=== PATIENT | male | born 1935 | race Caucasian/White ===

== ENCOUNTER → 2017-07-31 10:47 | Outpatient (CLI) | payer MEDICARE, SELFPAY ==
[2017-07-31 12:40] LABS: Absolute Lymphocyte Count 1.43 X10^3/ul (0.83-4.51); Absolute Neutrophil Count 3.2 X10^3/uL (2.0-7.7); Basophil# 0.02 X10^3/uL; Basophil% 0.4 % (0-1); Eosinophil# 0.27 X10^3/uL; Hematocrit 38.7 % (40-54); Hemoglobin 12.9 g/dl (13.0-16.5); Lymphocyte # 1.43 X10^3/ul (4.0); Lymphocyte % 26.4 % (19-41); Mean Corp Hgb Conc 33.3 g/gl (32-36); Mean Corpuscular Hgb 30.9 pg (27.0-32.0); Mean Corpuscular Volume 92.8 fL (80-94); Mean Platelet Vol. 12.1 fl (6.2-12.0); Monocyte# 0.51 X10^3/uL; Monocyte% 9.4 % (0-10); Neutrophil # 3.16 X10^3/uL (2.7-7.7); Neutrophil % 58.4 % (47-70); Platelet Count 217 K/mm3 (150-450); RBC Distribution Width CV 12.6 % (11.6-14.6); Red Blood Count 4.17 M/mm3 (4.6-6.2); White Blood Count 5.4 K/mm3 (4.4-11.0)
[2017-07-31 12:46] LABS: POSITIVE COUNT NO; POSITIVE DIFFERENTIAL NO; POSITIVE MORPHOLOGY NO
[2017-07-31 13:02] LABS: ALB/GLOB Ratio 1.2 RATIO (0.9-2.4); AST(SGOT) 12 U/L (15-37); Alanine Aminotransfer ALT/SGPT 18 U/L (16-61); Albumin, Serum 3.9 g/dL (3.2-5.0); Alkaline Phosphatase 82 U/L (45-117); Anion Gap 7 (5-15); BUN 22 mg/dL (7-18); BUN/Creat Ratio 13.5 RATIO (10-20); Calcium,Total 8.7 mg/dL (8.5-10.1); Chloride 106 mmol/L (98-107); Creatinine, Serum 1.63 mg/dL (0.70-1.30); EST Glomerular Filtration Rate 43 mL/min (>60); Est Glom Filt Rate - Afr Amer 52 mL/min (>60); Globulin 3.3 g/dL (2.2-4.2); Glucose 102 mg/dL (74-106); Potassium 5.2 mmol/L (3.5-5.1); Protein, Total 7.2 g/dL (6.4-8.2); Sodium Level 141 mmol/L (136-145); Vitamin D,25 Hydroxy 11.7 ng/mL (29.95-100.01)
== END ==
PROVIDERS: Visit Provider Family Medicine Geriatric Medicine
DX: E11.9 Type 2 diabetes mellitus without complications (principal); I10 Essential (primary) hypertension; E23.6 Other disorders of pituitary gland; E55.9 Vitamin D deficiency, unspecified
CPT/HCPCS: 36415; 80053; 82306; 84403; 84443; 85025

== ENCOUNTER → 2018-02-04 12:01 | Outpatient (CLI) | payer MEDICARE, SELFPAY ==
[2018-02-04 12:51] LABS: Basophil# 0.01 X10^3/uL; Basophil% 0.1 % (0-1); Eosinophil# 0.25 X10^3/uL; Eosinophils% 3.5 % (0-5); Hematocrit 43.4 % (40-54); Hemoglobin 14.7 g/dl (13.0-16.5); Lymphocyte % 18.4 % (19-41); Mean Corp Hgb Conc 33.9 g/gl (32-36); Mean Corpuscular Hgb 30.8 pg (27.0-32.0); Mean Platelet Vol. 12.8 fl (6.2-12.0); Monocyte# 0.54 X10^3/uL; Monocyte% 7.6 % (0-10); Neutrophil # 4.95 X10^3/uL (2.7-7.7); Neutrophil % 70.3 % (47-70); Platelet Count 223 K/mm3 (150-450); RBC Distribution Width CV 12.4 % (11.6-14.6); RBC Distribution Width SD 40.7 fl (35.1-43.9); Red Blood Count 4.77 M/mm3 (4.6-6.2); White Blood Count 7.1 K/mm3 (4.4-11.0)
[2018-02-04 12:55] LABS: POSITIVE COUNT NO; POSITIVE DIFFERENTIAL NO; POSITIVE MORPHOLOGY NO
[2018-02-04 13:14] LABS: Vitamin D,25 Hydroxy 19.6 ng/mL (29.95-100.01)
[2018-02-04 13:29] LABS: ALB/GLOB Ratio 1.2 RATIO (0.9-2.4); AST(SGOT) 14 U/L (15-37); Alanine Aminotransfer ALT/SGPT 18 U/L (16-61); Albumin, Serum 4.1 g/dL (3.2-5.0); Alkaline Phosphatase 79 U/L (45-117); Anion Gap 10 (5-15); BUN 25 mg/dL (7-18); BUN/Creat Ratio 14.9 RATIO (10-20); Calcium,Total 9.4 mg/dL (8.5-10.1); Chloride 100 mmol/L (98-107); Creatinine, Serum 1.68 mg/dL (0.70-1.30); EST Glomerular Filtration Rate 42 mL/min (>60); Est Glom Filt Rate - Afr Amer 51 mL/min (>60); Globulin 3.4 g/dL (2.2-4.2); Glucose 173 mg/dL (74-106); Potassium 4.9 mmol/L (3.5-5.1); Protein, Total 7.5 g/dL (6.4-8.2); Sodium Level 136 mmol/L (136-145)
--- OUTSIDE RECORDS SUMMARY | 2018-03-19 03:42 | XMS RPT_ITS ---
:1935 Author Organization OH[facility] Care Team Providers Name Role Phone Cameron Perez Chi Attending Unavailable Cameron Perez Chi Attending Unavailable PROBLEMS PROBLEMS No Problem Records FoundPROCEDURES PROCEDURES No Procedure Records FoundRESULTS RESULTS CBC W/DIFF, AUTOMATED Collected: 02/04/2018 Status: F Source: [place] 12:03 PM [facility] [place] REPOSITORY TYPE CODE TESTS RESULT OUT OF RANGE REFERENCE UNITS LAB L100.1000 4.4-11.0 K/mm3 Normal WBC 7.1 LAB L100.1200 4.6-6.2 M/mm3 Normal RBC 4.77 LAB L100.1300 13.0-16.5 g/dl Normal HGB 14.7 LAB L100.1400 40-54 % Normal HCT 43.4 LAB L100.1500 80-94 fL Normal MCV 91.0 LAB L100.1600 27.0-32.0 pg Normal MCH 30.8 LAB L100.1700 32-36 g/gl Normal MCHC 33.9 LAB L100.1810 11.6-14.6 % Normal RDW CV 12.4 LAB L100.1820 35.1-43.9 fl Normal RDW SD 40.7 LAB L100.1900 150-450 K/mm3 Normal PLT 223 LAB L100.2000 6.2-12.0 fl High MPV 12.8 LAB L100.2100 47-70 % High NEUT% 70.3 LAB L100.2200 19-41 % Low LY% 18.4 LAB L100.2300 0-10 % Normal MONO% 7.6 LAB L100.2400 0-5 % Normal EO% 3.5 LAB L100.2500 0-1 % Normal BASO% 0.1 LAB L100.2550 0.0-0.9 % Normal IM GRAN % 0.100 Result Comment: IG% - Immature Granulocytes (promyelocytes, myelocytes and metamyelocytes) > 1% indicates that a LEFT SHIFT is Present. LAB L100.2620 2.0-7.7 X10 3/uL Normal Absolute Neut 5.0 LAB L100.2720 0.83-4.51 X10 3/ul Normal Absolute Lymph 1.30 Performed By: #### L100.0100 #### [facility] [address] [place], [address] VITAMIN D,25 HYDROXY Collected: 02/04/2018 Status: F Source: [place] 12:03 PM [facility] [place] REPOSITORY TYPE CODE TESTS RESULT OUT OF REFERENCE UNITS RANGE LAB L506.1000 29.95-100.01 ng/mL Low Vitamin D 19.6 25-OH Result Comment: Vitamin D 25(OH) Status Range Deficiency <20 ng/mL (50nmol/L) Insuffciency 20 - 30 ng/mL (50 - 75 nmol/L) Sufficiency 30 - 100 ng/mL (75 - 250 nmol/L) Toxicity >100 ng/mL (>250 nmol/L) Performed By: #### L506.1000, L509.3000 #### [facility] [address] [place], [address] TESTOSTERONE, SERUM TOTAL Collected: 02/04/2018 Status: F Source: [place] 12:03 [facility] [place] REPOSITORY TYPE CODE TESTS RESULT OUT OF REFERENCE UNITS RANGE LAB L509.3000 ng/dL Testosterone Normal 218.93 Result Comment: NORMAL REFERENCE RANGES MALE AGE <50 123.06 - 813.86 ng/dL MALE AGE >50 89.98 - 780.10 ng/dL FEMALE PREMENOPAUSE AGE 21 - 60 9.01 - 47.94 ng/dL FEMALE POSTMENOPAUSE AGE 45 - 89 <7.00 - 45.62 ng/dL REFERENCE RANGE AND METHODOLOGY CHANGED 02/27/2017 Performed By: #### L506.1000, L509.3000 #### [facility] [address] [place], [address] COMPREHENSIVE METABOLIC Collected: 02/04/2018 Status: F Source: [place] [facility] 12:03 PM [facility] [place] REPOSITORY TYPE CODE TESTS RESULT OUT OF RANGE REFERENCE UNITS LAB L501.0100 74-106 mg/dL High GLU 173 Result Comment: Fasting Glucose result greater than or equal to 126 mg/dL suggests DIABETES MELLITUS per A.D.A. criteria. Please note revised GLUCOSE reference range effective 2017. LAB L501.1000 7-18 mg/dL High BUN 25 LAB L501.1100 0.70-1.30 mg/dL High CREAT,SERUM 1.68 Result Comment: The validity of the calculated GFR AND GFRAA in patients over 70 years has not been determined. Clinical correlation is essential. LAB L501.1110 >60 mL/min Low EST GFR 42 Result Comment: Non- GFR Calc LAB L501.1115 >60 mL/min Low EST GFR - AA 51 Result Comment: GFR Calc LAB L501.1300 10-20 RATIO Normal BUN/CRE 14.9 LAB L501.1500 6.4-8.2 g/dL T Normal PROT 7.5 LAB L501.1800 3.2-5.0 g/dL Normal ALB 4.1 LAB L501.1950 2.2-4.2 g/dL Normal GLOB 3.4 LAB L501.2000 0.9-2.4 RATIO Normal A/G 1.2 LAB L501.2200 8.5-10.1 mg/dL CA Normal 9.4 LAB L501.4100 15-37 U/L Low AST 14 LAB L501.4305 45-117 U/L Normal ALK P 79 LAB L501.4405 16-61 U/L Normal ALT 18 LAB L501.4600 0.20-1.00 mg/dL T Normal BILI 0.60 LAB L501.5300 136-145 mmol/L NA Normal 136 LAB L501.5600 3.5-5.1 mmol/L K Normal 4.9 LAB L501.5900 98-107 mmol/L CL Normal 100 LAB L501.6100 21.0-32.0 mmol/L Normal CO2 26.0 LAB L501.6200 5-15 Normal GAP 10 Performed By: #### L500.4050, L501.6078 #### [facility] [address] [place], [address] THYROID STIM HORMONE Collected: 02/04/2018 Status: F Source: [place] (TSH) 12:03 PM [facility] [place] REPOSITORY TYPE CODE TESTS RESULT OUT OF RANGE REFERENCE UNITS LAB L501.9520 0.358-3.74 uIU/mL High TSH 3.90 Performed By: #### L500.4050, L501.9520 #### [facility] [address] [place], [address] CBC W/DIFF, AUTOMATED Collected: 07/31/2017 Status: F Source: [place] 10:48 AM [facility] [place] REPOSITORY TYPE CODE TESTS RESULT OUT OF RANGE REFERENCE UNITS LAB L100.1000 4.4-11.0 K/mm3 Normal WBC 5.4 LAB L100.1200 4.6-6.2 M/mm3 Low RBC 4.17 LAB L100.1300 13.0-16.5 g/dl Low HGB 12.9 LAB L100.1400 40-54 % Low HCT 38.7 LAB L100.1500 80-94 fL Normal MCV 92.8 LAB L100.1600 27.0-32.0 pg Normal MCH 30.9 LAB L100.1700 32-36 g/gl Normal MCHC 33.3 LAB L100.1810 11.6-14.6 % Normal RDW CV 12.6 LAB L100.1820 35.1-43.9 fl Normal RDW SD 42.0 LAB L100.1900 150-450 K/mm3 Normal PLT 217 LAB L100.2000 6.2-12.0 fl High MPV 12.1 LAB L100.2100 47-70 % Normal NEUT% 58.4 LAB L100.2200 19-41 % Normal LY% 26.4 LAB L100.2300 0-10 % Normal MONO% 9.4 LAB L100.2400 0-5 % Normal EO% 5.0 LAB L100.2500 0-1 % Normal BASO% 0.4 LAB L100.2550 0.0-0.9 % Normal IM GRAN % 0.400 Result Comment: IG% - Immature Granulocytes (promyelocytes, myelocytes and metamyelocytes) > 1% indicates that a LEFT SHIFT is Present. LAB L100.2620 2.0-7.7 X10 3/uL Normal Absolute Neut 3.2 LAB L100.2720 0.83-4.51 X10 3/ul Normal Absolute Lymph 1.43 Performed By: #### L100.0100 #### [facility] [address] [place], [address] VITAMIN D,25 HYDROXY Collected: 07/31/2017 Status: F Source: [place] 10:48 AM [facility] [place] REPOSITORY TYPE CODE TESTS RESULT OUT OF REFERENCE UNITS RANGE LAB L506.1000 29.95-100.01 ng/mL Low Vitamin D 11.7 25-OH Result Comment: Vitamin D 25(OH) Status Range Deficiency <20 ng/mL (50nmol/L) Insuffciency 20 - 30 ng/mL (50 - 75 nmol/L) Sufficiency 30 - 100 ng/mL (75 - 250 nmol/L) Toxicity >100 ng/mL (>250 nmol/L) Performed By: #### L506.1000, L509.3000 #### [facility] [address] [place], [place], [address] TESTOSTERONE, SERUM TOTAL Collected: 07/31/2017 Status: F Source: [place] 10:48 AM [facility] [place] REPOSITORY TYPE CODE TESTS RESULT OUT OF REFERENCE UNITS RANGE LAB L509.3000 ng/dL Testosterone Normal 198.95 Result Comment: NORMAL REFERENCE RANGES MALE AGE <50 123.06 - 813.86 ng/dL MALE AGE >50 89.98 - 780.10 ng/dL FEMALE PREMENOPAUSE AGE 21 - 60 9.01 - 47.94 ng/dL FEMALE POSTMENOPAUSE AGE 45 - 89 <7.00 - 45.62 ng/dL REFERENCE RANGE AND METHODOLOGY CHANGED 02/27/2017 Performed By: #### L506.1000, L509.3000 #### [facility] [address] [place], [address] COMPREHENSIVE METABOLIC Collected: 07/31/2017 Status: F [facility] [place] REPOSITORY TYPE CODE TESTS RESULT OUT OF RANGE REFERENCE UNITS LAB L501.0100 74-106 mg/dL Normal GLU 102 Result Comment: Fasting Glucose result from 100 to 125 mg/dL suggests IMPAIRED HOMEOSTASIS per A.D.A. criteria. Please note revised GLUCOSE reference range effective 2017. LAB L501.1000 7-18 mg/dL High BUN 22 LAB L501.1100 0.70-1.30 mg/dL High CREAT,SERUM 1.63 Result Comment: The validity of the calculated GFR AND GFRAA in patients over 70 years has not been determined. Clinical correlation is essential. LAB L501.1110 >60 mL/min Low EST GFR 43 Result Comment: Non- GFR Calc LAB L501.1115 >60 mL/min Low EST GFR - AA 52 Result Comment: GFR Calc LAB L501.1300 10-20 RATIO Normal BUN/CRE 13.5 LAB L501.1500 6.4-8.2 g/dL T Normal PROT 7.2 LAB L501.1800 3.2-5.0 g/dL Normal ALB 3.9 LAB L501.1950 2.2-4.2 g/dL Normal GLOB 3.3 LAB L501.2000 0.9-2.4 RATIO Normal A/G 1.2 LAB L501.2200 8.5-10.1 mg/dL CA Normal 8.7 LAB L501.4100 15-37 U/L Low AST 12 LAB L501.4305 45-117 U/L Normal ALK P 82 LAB L501.4405 16-61 U/L Normal ALT 18 LAB L501.4600 0.20-1.00 mg/dL T Normal BILI 0.40 LAB L501.5300 136-145 mmol/L NA Normal 141 LAB L501.5600 3.5-5.1 mmol/L High K 5.2 LAB L501.5900 98-107 mmol/L CL Normal 106 LAB L501.6100 21.0-32.0 mmol/L Normal CO2 28.0 LAB L501.6200 5-15 Normal GAP 7 Performed By: #### L500.4050, L501.9520 #### [facility] [address] [place], [address] THYROID STIM HORMONE Collected: 07/31/2017 Status: F Source: [place] (TSH) 10:48 AM [facility] [place] REPOSITORY TYPE CODE TESTS RESULT OUT OF RANGE REFERENCE UNITS LAB L501.9520 0.358-3.74 uIU/mL Normal TSH 2.70 Performed By: #### L500.4050, L501.9520 #### [facility] [address] [place], [address] ALLERGIES ALLERGIES No Allergies Records FoundENCOUNTERS ENCOUNTERS ADMIT/DISCHARGE ACCOUNT ADMITTING ENCOUNTER LOCATION SOURCE NUMBER CLASS 02/04/2018 [id number] [place] [facility] ing:POLAB3 Repository 07/31/2017 [id number] Ambulatory [place] [facility] ing:POLAB3 Repository PAYERS PAYERS ENCOUNTER GUARANTOR PAYER SUBSCRIBER SOURCE 02/04/2018 Weston Thomas Primary Insurance:MMO Weston E [place] [id number] MEDICAREPolicy ShoemakerDOB[facility] [place] [place]: [id number] [id number] Repository [address]Kqn: [phone]) Date:[id number] [phone] () [place], [place] [address]MX: 02/04/2018 Secondary NOT GIVENUNK [place] Insurance:SELF PAY [facility] Number: Effective Repository Date:2018-02-04 07/31/2017 Weston Thomas Primary Insurance:MMO [place] E [place] [id number] [facility] ShoemakerDOB: [facility] [place], [place] Number: [id number], [place] [id number] Repository [address]Qaj: [phone]) Date:[phone] () [place], [place] [address]ZP: 07/31/2017 Secondary NOT GIVENUNK [place] Insurance:SELF PAY [facility] Number: Effective Repository Date:2017-07-31
== END ==
PROVIDERS: Visit Provider Family Medicine Geriatric Medicine
DX: I10 Essential (primary) hypertension (principal); E23.6 Other disorders of pituitary gland; E55.9 Vitamin D deficiency, unspecified
CPT/HCPCS: 36415; 80053; 82306; 84403; 84443; 85025

== ENCOUNTER → 2018-08-06 08:54 | Outpatient (CLI) | payer MEDICARE, SELFPAY ==
[2018-08-06 10:46] LABS: Absolute Lymphocyte Count 1.21 X10^3/ul (0.83-4.51); Absolute Neutrophil Count 3.4 X10^3/uL (2.0-7.7); Basophil# 0.01 X10^3/uL; Basophil% 0.2 % (0-1); Eosinophil# 0.21 X10^3/uL; Eosinophils% 4.1 % (0-5); Hematocrit 38.9 % (40-54); Hemoglobin 13.2 g/dl (13.0-16.5); Lymphocyte # 1.21 X10^3/ul (4.0); Lymphocyte % 23.4 % (19-41); Mean Corp Hgb Conc 33.9 g/gl (32-36); Mean Corpuscular Hgb 30.8 pg (27.0-32.0); Mean Corpuscular Volume 90.9 fL (80-94); Mean Platelet Vol. 12.4 fl (6.2-12.0); Monocyte# 0.32 X10^3/uL; Monocyte% 6.2 % (0-10); Neutrophil % 65.9 % (47-70); Platelet Count 197 K/mm3 (150-450); RBC Distribution Width CV 13.2 % (11.6-14.6); RBC Distribution Width SD 43.7 fl (35.1-43.9); Red Blood Count 4.28 M/mm3 (4.6-6.2); White Blood Count 5.2 K/mm3 (4.4-11.0)
[2018-08-06 10:48] LABS: POSITIVE COUNT NO; POSITIVE DIFFERENTIAL NO; POSITIVE MORPHOLOGY NO
[2018-08-06 11:06] LABS: Vitamin D,25 Hydroxy 16.8 ng/mL (29.95-100.01)
[2018-08-06 11:15] LABS: ALB/GLOB Ratio 1.1 RATIO (0.9-2.4); AST(SGOT) 13 U/L (15-37); Alanine Aminotransfer ALT/SGPT 14 U/L (16-61); Albumin, Serum 3.9 g/dL (3.2-5.0); Alkaline Phosphatase 76 U/L (45-117); Anion Gap 4 (5-15); BUN 27 mg/dL (7-18); BUN/Creat Ratio 16.5 RATIO (10-20); Calcium,Total 8.8 mg/dL (8.5-10.1); Chloride 106 mmol/L (98-107); Creatinine, Serum 1.64 mg/dL (0.70-1.30); EST Glomerular Filtration Rate 43 mL/min (>60); Est Glom Filt Rate - Afr Amer 52 mL/min (>60); Globulin 3.4 g/dL (2.2-4.2); Glucose 233 mg/dL (74-106); Potassium 4.8 mmol/L (3.5-5.1); Protein, Total 7.3 g/dL (6.4-8.2); Sodium Level 137 mmol/L (136-145); Thyroid Stim Hormone (TSH) 2.41 uIU/mL (0.358-3.74)
== END ==
PROVIDERS: Family Provider Family Medicine Geriatric Medicine; PCP Family Medicine Geriatric Medicine; Visit Provider Family Medicine Geriatric Medicine
DX: E11.9 Type 2 diabetes mellitus without complications (principal); E23.6 Other disorders of pituitary gland; E55.9 Vitamin D deficiency, unspecified; I10 Essential (primary) hypertension; E03.9 Hypothyroidism, unspecified
CPT/HCPCS: 36415; 80053; 82306; 84403; 84443; 85025

== ENCOUNTER → 2018-08-06 10:22 | Outpatient (CLI) | payer MEDICARE, SELFPAY ==
--- NOTE | 2018-08-06 10:30 | VDLE_ITS ---
Reason For Study: Edema RIGHT LEFT GSV is normal. GSV is normal. CFV is compressible, spontaneous, phasic, CFV is compressible, spontaneous, phasic, competent and demonstrates normal competent, and demonstrates normal augmentation. augmentation. FV is compressible, spontaneous, phasic, FV is compressible, spontaneous, phasic, competent and demonstrates normal competent and demonstrates normal augmentation. augmentation. POP V is compressible, spontaneous, phasic, POP V is compressible, spontaneous, phasic, competent and demonstrates normal competent and demonstrates normal augmentation. augmentation. T/P Trunk is compressible. T/P Trunk is compressible. PTV is compressible. PTV is compressible. RT PerV is compressible. LT PerV is compressible. Procedure Nonvascularized structure noted in the Exam performed in department. popliteal space extending into the proximal A preliminary report was called and/or faxed calf. Measures approximently 10.0 x 1.0 cm. to Chris. Interpretation Summary Deep veins of the lower extremities are bilaterally patent and compressible segmentally. There is no evidence of deep vein thrombosis on either side. Valvular competence appears intact within the proximal deep venous systems bilaterally. The greater saphenous veins appear bilaterally patent and compressible segmentally. A non-vascular, hypoechoic structure is noted in the left popliteal space, extending into the left proximal calf, measuring 10.0 cm x 1.0 cm. This probably represents a popliteal cyst. Clinical correlation is advised. Ordering Physician: Cameron Perez Referring Physician: Cameron Perez Chi Performed By: Emilia Irvin RVT
== END ==
PROVIDERS: Family Provider Family Medicine Geriatric Medicine; PCP Family Medicine Geriatric Medicine; Referring Provider Family Medicine Geriatric Medicine; Visit Provider Family Medicine Geriatric Medicine
DX: R60.0 Localized edema (principal); E11.9 Type 2 diabetes mellitus without complications; I10 Essential (primary) hypertension; E03.9 Hypothyroidism, unspecified; E23.6 Other disorders of pituitary gland; E55.9 Vitamin D deficiency, unspecified
CPT/HCPCS: 36415; 80053; 82306; 84403; 84443; 85025; 93970

== ENCOUNTER → 2019-02-04 11:33 | Outpatient (CLI) | payer MEDICARE, SELFPAY ==
[2019-02-04 12:33] LABS: Absolute Lymphocyte Count 1.22 X10^3/uL (0.83-4.51); Absolute Neutrophil Count 5.2 X10^3/uL (2.0-7.7); Basophil# 0.02 X10^3/uL; Basophil% 0.3 % (0-1); Eosinophil# 0.44 X10^3/uL; Eosinophils% 5.8 % (0-5); Hematocrit 39.6 % (40-54); Hemoglobin 13.1 g/dL (13.0-16.5); Lymphocyte # 1.22 X10^3/ul (4.0); Lymphocyte % 16.2 % (19-41); Mean Corp Hgb Conc 33.1 g/dL (32-36); Mean Corpuscular Hgb 30.3 pg (27.0-32.0); Mean Corpuscular Volume 91.7 fL (80-94); Mean Platelet Vol. 12.8 fl (6.2-12.0); Monocyte# 0.63 X10^3/uL; Monocyte% 8.3 % (0-10); NRBC Flagged by Analyzer 0 % (0-5); Neutrophil # 5.21 X10^3/uL (2.7-7.7); Platelet Count 199 K/mm3 (150-450); RBC Distribution Width CV 12.3 % (11.6-14.6); RBC Distribution Width SD 40.9 fl (35.1-43.9); Red Blood Count 4.32 M/mm3 (4.6-6.2); White Blood Count 7.6 K/mm3 (4.4-11.0)
[2019-02-04 12:52] LABS: Vitamin D,25 Hydroxy 12.2 ng/mL (29.95-100.01)
[2019-02-04 12:59] LABS: ALB/GLOB Ratio 1.2 RATIO (0.9-2.4); AST(SGOT) 8 U/L (15-37); Alanine Aminotransfer ALT/SGPT 17 U/L (16-61); Alkaline Phosphatase 99 U/L (45-117); Anion Gap 10 (5-15); BUN 27 mg/dL (7-18); BUN/Creat Ratio 15.1 RATIO (10-20); Chloride 101 mmol/L (98-107); Creatinine, Serum 1.79 mg/dL (0.70-1.30); EST Glomerular Filtration Rate 39 mL/min (>60); Est Glom Filt Rate - Afr Amer 47 mL/min (>60); Globulin 3.3 g/dL (2.2-4.2); Glucose 238 mg/dL (74-106); Potassium 4.1 mmol/L (3.5-5.1); Protein, Total 7.3 g/dL (6.4-8.2); Sodium Level 137 mmol/L (136-145); Thyroid Stim Hormone (TSH) 4.47 uIU/mL (0.358-3.74)
== END ==
PROVIDERS: Family Provider Family Medicine Geriatric Medicine; PCP Family Medicine Geriatric Medicine; Visit Provider Family Medicine Geriatric Medicine
DX: E11.9 Type 2 diabetes mellitus without complications (principal); E55.9 Vitamin D deficiency, unspecified; E23.6 Other disorders of pituitary gland
CPT/HCPCS: 36415; 80053; 82306; 84403; 84443; 85025

== ENCOUNTER 2019-03-10 16:13 | Observation (INO) | payer MEDICARE, SELFPAY ==
[2019-03-10 16:15] VITALS: BP 165/9; PULSE 52; RESP 16; TEMP 36.4; O2SAT 98; BMI 27.1
--- NOTE | 2019-03-10 16:47 | ED.VIS.GEN ---
History of Present Illness Chief Complaint: General Illness Narrative: Patient presenting for evaluation due to concern for I am not going to the bathroom normally. Patient states that he typically urinates around 3-4 times a day. He states that over the course of at least the last 2 days he is only urinated maybe once a day, and feels that he is having incomplete emptying. Patient states that he feels significantly dry. Over the course of the last 24 hours now he has been developing nausea vomiting and difficulty with keeping down fluids and food. He denies any abdominal pain or flank pain. He denies any presence of fevers. He denies any history of urinary retention. Additionally the patient states that he fell around a week ago striking his shins on the stairs. He reports that the wounds have been having a difficult time healing. He has been doing home wound care. He has an underlying history of diabetes. Review of systems otherwise negative. Past Medical History - Allergies and Home Meds Allergies/Adverse Reactions: Allergies No Known Allergies Allergy (Verified 03/10/19 16:14) Primary Care Physician: Cameron Perez Chi, MD [Primary Care Provider] - Past Medical History: - - Diabetes, hypertension, hyperlipidemia Review of Systems All systems negative except as indicated General: Denies: Fever Eyes: Denies: Visual changes - bilaterally, Diplopia ENT: Denies: Rhinorrhea, Sore throat Cardiovascular: Denies: Chest pain, Palpitations Respiratory: Denies: Dyspnea, Cough, Dyspnea on exertion Gastrointestinal: Denies: Abdominal pain, Nausea, Vomiting, Diarrhea, Melena, Hematochezia Genitourinary: Reports: - - Decreased urination Musculoskeletal: Denies: Back pain, Extremity Pain Skin: Reports: Wounds Neurological: Denies: Headache, Weakness, Numbness Physical Exam Vital Signs/Narrative: Vital Signs Temp Pulse Resp BP Pulse Ox 03/10/19 16:15 97.5 F L 52 L 16 165/9 H 98 General: Well nourished, Well developed, No Acute Distress Head: Normocephalic, Atraumatic Eyes: Perrl, EOMI ENT: No rhinorrhea, Dry mucous membranes Neck: Supple, Nontender Cardiovascular: No murmurs, Bradycardia Respiratory: No distress, CTA bilaterally, Chest nontender Abdomen: Soft, Nontender, Nondistended, Normal bowel sounds Extremities: - - Examination of the patient's lower extremities shows multiple wounds, erythema, and scattered petechia of the patient's right lower leg. There is warmth of this. No subcutaneous emphysema or streaking. Left leg has some open wounds that do not appear infected. Skin: Normal color, No rash Neurological: Alert, Oriented x3, Cranial nerves II-XII grossly intact, Normal Strength, Normal Sensation Psychological: Normal affect, Normal Mood Diagnostic/Tx/Re-eval - Medical Decision Making Patient presented secondary to urinary complaints. Bedside bladder scanning showed the patient to have greater than 1 L of urine in his bladder. Jennings catheter was placed, and the patient put over 1700 cc of urine into the bag immediately. Patient has mild leukocytosis of 13. Chemistry panel surprisingly did not show significant acute kidney injury. Patient's baseline creatinine was 1.7, it only went up to 1.9. Urinalysis shows no signs of infection. On physical exam patient does have evidence of significant cellulitis on the leg, and on repeat evaluation I even feel that there is some lymphangitic streaking going above the knee. He was profoundly dry also on physical exam. Given his acute urinary retention, diabetes, cellulitis with lymphangitic streaking I do believe that he requires admission. Patient was given a dose of Unasyn as well as 2 L of fluids in the emergency department. Patient will be admitted under the hospitalist. ED Disposition - Plan for ED Patient: Disposition: Acute Care Hospital [facility] Diagnosis: Bilateral lower leg cellulitis, Acute urinary retention, Acute kidney injury, Dehydration Referrals: Cameron Perez Chi, MD [Primary Care Provider] -
[2019-03-10] MEDS: Lactated Ringers 2,000 ML 999 ML IV (17:11)
[2019-03-10 17:14] LABS: Absolute Lymphocyte Count 0.54 X10^3/uL (0.83-4.51); Absolute Neutrophil Count 11.6 X10^3/uL (2.0-7.7); Basophil# 0.02 X10^3/uL; Basophil% 0.2 % (0-1); Eosinophil# 0.13 X10^3/uL; Hematocrit 37.9 % (40-54); Hemoglobin 12.8 g/dL (13.0-16.5); Lymphocyte # 0.54 X10^3/ul (4.0); Lymphocyte % 4.1 % (19-41); Mean Corp Hgb Conc 33.8 g/dL (32-36); Mean Corpuscular Hgb 30.6 pg (27.0-32.0); Mean Corpuscular Volume 90.7 fL (80-94); Mean Platelet Vol. 11.9 fl (6.2-12.0); Monocyte# 0.58 X10^3/uL; Monocyte% 4.5 % (0-10); NRBC Flagged by Analyzer 0 % (0-5); Neutrophil # 11.64 X10^3/uL (2.7-7.7); Neutrophil % 89.4 % (47-70); POSITIVE DIFFERENTIAL YES; POSITIVE MORPHOLOGY YES; Platelet Count 199 K/mm3 (150-450); RBC Distribution Width CV 12.9 % (11.6-14.6); RBC Distribution Width SD 42.9 fl (35.1-43.9); Red Blood Count 4.18 M/mm3 (4.6-6.2)
[2019-03-10 17:18] LABS: Differential Indicated SCAN CRITERIA MET
[2019-03-10 17:35] LABS: Anion Gap 11 (5-15); BUN 32 mg/dL (7-18); BUN/Creat Ratio 16.7 RATIO (10-20); Calcium,Total 9.4 mg/dL (8.5-10.1); Chloride 107 mmol/L (98-107); Creatinine, Serum 1.92 mg/dL (0.70-1.30); EST Glomerular Filtration Rate 36 mL/min (>60); Est Glom Filt Rate - Afr Amer 43 mL/min (>60); Glucose 263 mg/dL (74-106); Potassium 4.5 mmol/L (3.5-5.1); Sodium Level 140 mmol/L (136-145)
[2019-03-10 17:53] LABS: Bacteria 0 SEEN /hpf (None Seen); Mucous, Urine 0 SEEN /hpf (<or=2+); Squamous Epithelial Cells - UA 0 SEEN /hpf (0-5)
[2019-03-10 17:58] LABS: Color, Urine Yellow (Yellow); Glucose, Dipstick 250 mg/dl (Normal); Ketone-Dipstick 5 mg/dl (Negative); Leukocyte Esterase-Dipstick Negative /ul (Negative); Nitrite-Dipstick Negative (Negative); Occult Blood-Urine Negative /ul (Negative); Protein-Dipstick 30 mg/dl (Negative); Urine Bilirubin Dipstick Negative (Negative); Urine Clarity Clear (Clear); Urine Urobilinogen Normal (Normal)
[2019-03-10 18:28] LABS: Red Blood Cells-Urine 0-5 SEEN /hpf (0-5); Transitional Epithelial - Ur 0-5 SEEN /hpf (0-5); White Blood Cells 0-5 SEEN /hpf (0-5)
--- NOTE | 2019-03-10 19:01 | PCM.HP.STD ---
Problem List (1) Cellulitis Status: Acute Qualifiers: Site of cellulitis: extremity Site of cellulitis of extremity: lower extremity Laterality: right Qualified Code(s): L03.115 - Cellulitis of right lower limb (2) Acute urinary retention Status: Acute (3) CKD (chronic kidney disease), stage III Status: Chronic (4) HTN (hypertension) Status: Chronic Qualifiers: Hypertension type: unspecified Qualified Code(s): I10 - Essential (primary) hypertension (5) HLD (hyperlipidemia) Status: Chronic Qualifiers: Hyperlipidemia type: unspecified Qualified Code(s): E78.5 - Hyperlipidemia, unspecified (6) Hypothyroidism Status: Chronic Qualifiers: Hypothyroidism type: unspecified Qualified Code(s): E03.9 - Hypothyroidism, unspecified (7) Diabetes mellitus, type II Status: Chronic 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 use Diabetes mellitus complication status: with other specified complication Qualified Code(s): E11.69 - Type 2 diabetes mellitus with other specified complication History of Present Illness Date of Admission: 03/10/19 Chief Complaint: Urinary retention The patient is a 83 y/o M w/ PMHx: Hypothyroidism, HTN, HLD, Diabetes mellitus type II, CKD stage III who presents to the [facility] ED on 03/10/19 with history of fall approximately 1 week prior, hitting both his mid shins on the stairs with since progressively worsening discomfort, redness, right greater than left in addition to onset of nausea and emesis the day prior with difficulty with oral intake with no fever or chills associated but reported urinary retention with decreased urine output since the evening prior which eventually prompted him to present to the ED for evaluation. Daughters had been encouraging him to present for his lower extremity changes but he had declined and has been treating himself at home. He did note associated suprapubic discomfort with his urinary retention and decreased urine output. Work-up in the ED included T 97.5, heart rate 52, BP 165/90, respiratory rate 16, 98% on room air, CBC with WC 13, hemoglobin 12.8, platelet 199 with left shift, BMP with BUN/creatinine 32/1.92, glucose 263, analysis with specific gravity 1.020, protein 30, glucose 250, ketones 5, negative nitrite and negative leukocyte esterase, no WBCs nor urine bacteria, given patient history of urinary retention bladder scan performed and notable evidence of retained urine, Jennings catheter placed with near 2 L output. In the ED patient ministered Flomax 0.4 mg p.o. x1 as well as 2 L LR and Unasyn therapy for concern for bilateral right greater than left cellulitis. Past Medical History Past Medical History (Chronic Problems): Chronic Problems CKD (chronic kidney disease), stage III (Chronic) HTN (hypertension) (Chronic) HLD (hyperlipidemia) (Chronic) Hypothyroidism (Chronic) Diabetes mellitus, type II (Chronic) Allergies No Known Allergies Allergy (Verified 03/10/19 16:14) Home Medications: Ambulatory Orders Medication Instructions Recorded Atorvastatin Calcium 40 mg PO QHS 03/10/19 Glimepiride 4 mg PO DAILY 03/10/19 Levothyroxine [Synthroid] 75 mcg PO DAILY 03/10/19 Lisinopril [Zestril] 10 mg PO DAILY 03/10/19 Metformin HCl 1,000 mg PO BID 03/10/19 Surgical History: - - Nephrolithiasis intervention remotely, tonsillectomy remotely. Psychiatric History: No pertinent psych hx Lives: Alone Smoking Status: Never smoker Tobacco Use: Non-smoker Alcohol: None Drugs: None - *Family History Maternal History Items: Diabetes Paternal History Items: Diabetes Review of Systems Constitutional: Reports: Anorexia, Malaise, Weakness, Fatigue. Denies: Chills, Fever, Weight Change HEENT: Denies: Head Aches, Sinus Congestion, Sinus Drainage Cardiovascular: Denies: Chest Pain, Palpitations Respiratory: Denies: Cough, Shortness of breath at rest, Sputum production Gastrointestinal: Reports: Abdominal Pain, Nausea, Vomiting Genitourinary: Reports: Retention. Denies: Dysuria Musculoskeletal: Reports: Back Pain, Joint Pain. Denies: Joint Tenderness Skin: Reports: Skin Changes. Denies: Rash, Wounds Neurological: Denies: Numbness, Tingling, Focal weakness Psychiatric: Denies: Anxiety, Depression, Homicidal Ideations, Suicidal Ideations Hematologic/ Lymphatic: Reports: Easy Bruising, Easy Bleeding VTE Information - Inpt Only VTE Present on Admission: No VTE Mechan Device Prophylaxis: SCD's VTE Pharm Prophylaxis ordered?: Yes Patient Problems: Active and Suspected Problems Bilateral lower leg cellulitis (Acute) Acute urinary retention (Acute) Acute kidney injury (Acute) Dehydration (Acute) Cellulitis (Acute) Subjective: Seated upright in ED bed, fatigued appearance, no acute distress currently. Objective: Physical Examination: General: awake, alert, oriented x 3 and cooperative, hard of hearing, seated upright in the ED bed in no apparent distress, fatigued appearing. Skin: normal color, turgor, no icterus, cyanosis, bilateral lower extremity chronic venous stasis skin changes, more erythematous appearance to the right lower extremity anterior [place], small open regions with serous drainage, no purulent drainage noted, no market foul order noted. HEENT: AT/NC, EOMI, PERRLA, moderately dry MM, no carotid bruits or JVD noted. Lungs: Diminished breath sounds bilaterally, greater bilateral bases, moderate effort, no rales, ronchi or wheezing. Heart: Regular rate, mildly irregular rhythm; no gallop, rub audible. Abdomen: soft, NTTP, no suprapubic tenderness either, ND, normal BS, no HSM, Jennings catheter in place. Extremities: no cyanosis, clubbing, see skin, chronic venous stasis skin changes, right greater than left erythema, touch as noted. Neurological: patient awake, alert, oriented x 3, hard of hearing; cognitive function intact; pupils equally reactive to light and accomodation; cranial nerves II-XII grossly normal, moving all 4 extremities, no focal deficits, strength fairly global decreased given acute presentation. Psychiatric: affect appears fatigued, no acute evidence of depressive or anxiety feelings. - Physical Exam Vitals/I&O's: Vital Signs Temp Pulse Resp BP Pulse Ox 97.5 F L 52 L 16 165/9 H 98 03/10/19 16:15 03/10/19 16:15 03/10/19 16:15 03/10/19 16:15 03/10/19 16:15 Oxygen Delivery Method Room Air Weight: 200 lb Body Mass Index (BMI) 27.1 Intake and Output for Last 24 Hours 03/08/19 03/09/19 03/10/19 23:59 23:59 23:59 Output Total 1700 / 1700 Balance -1700 / -1700 Laboratory Results 03/10/19 16:45: Urine Color Yellow, Urine Clarity Clear, Urine pH 6.0, Ur Specific [place] 1.020, Urine Protein 30 H, Urine Glucose (UA) 250 H, Urine Ketones 5 H, Urine Occult Blood Negative, Urine Nitrite Negative, Urine Bilirubin Negative, Urine Urobilinogen Normal, Ur Leukocyte Esterase Negative, Urine RBC 0-5 SEEN, Urine WBC 0-5 SEEN, Ur Squamous Epith Cells 0 SEEN, Ur Transition Epith Cell 0-5 SEEN, Urine Bacteria 0 SEEN, Urine Mucus 0 SEEN 03/10/19 16:55: WBC 13.0 H, RBC 4.18 L, Hgb 12.8 L, Hct 37.9 L, MCV 90.7, MCH 30.6, MCHC 33.8, RDW Std Deviation 42.9, RDW Coeff of Delvis 12.9, Plt Count 199, MPV 11.9, Immature Gran % (Auto) 0.800, Neut % (Auto) 89.4 H, Lymph % (Auto) 4.1 L, [place] % (Auto) 4.5, Eos % (Auto) 1.0, Baso % (Auto) 0.2, Absolute Neuts (auto) 11.6 H, Absolute Lymphs (auto) 0.54 L, Nucleated RBC % 0, Differential Comment 03/10/19 16:55: Sodium 140, Potassium 4.5, Chloride 107, Carbon Dioxide 22.0, Anion Gap 11, BUN 32 H, Creatinine 1.92 H, Estim Creat Clear Calc 32.00, Est GFR (MDRD) Af Amer 43 L, Est GFR (MDRD) Non-Af 36 L, BUN/Creatinine Ratio 16.7, Glucose 263 H, Calcium 9.4 Current Medications Ampicillin Sodium/Sulbactam Sodium 1,500 mg/ Sodium Chloride 50 mls @ 100 mls/hr IV X1 ONE Stop: 03/10/19 19:12 Assessment/Plan All Active Problems Bilateral lower leg cellulitis (Acute) Acute urinary retention (Acute) Acute kidney injury (Acute) Dehydration (Acute) Cellulitis (Acute) The patient is a 83 y/o M w/ PMHx: Hypothyroidism, HTN, HLD, Diabetes mellitus type II, CKD stage III who presents to the [facility] ED on 03/10/19 with history of fall approximately 1 week prior, hitting both his mid shins on the stairs with since progressively worsening discomfort, redness, right greater than left in addition to onset of nausea and emesis the day prior with difficulty with oral intake with no fever or chills associated but reported urinary retention with decreased urine output since the evening prior which eventually prompted him to present to the ED for evaluation. 1. Acute RLE Extremity Cellulitis complicated by BL LE Chronic Venous Stasis: Will admit to [facility], maintain on IV ancef, plan repeat CBC in AM, continue affected extremity elevation above heart when seated and in bed, monitor erythema outline with VS checks, wound RN consultation. 2. Acute Urinary Retention, unclear etiology: Urinalysis with no obvious UTI, Jennings catheter placed in the ED with notable retention evident, will initiate and maintain on twice daily Flomax, first dose in the ED, may attempt removal of Jennings catheter and if recurrent retention would plan replacement of Jennings catheter with urology consultation outpatient upon discharge. 3. Diabetes mellitus type II: Hold oral home regimen, ADA diet, accu checks w/ ISS, HgbA1c pending, nutrition consulted for education and teaching. 4. Chronic Kidney Disease Stage III: Admission BUN/Cr 32/1.92, baseline renal function 1.7, continue to monitor, repeat BMP in AM. 5. Hypertension: Continue home regimen including lisinopril but if worsened renal function would plan hold, PRN hydralazine. 6. Hyperlipidemia: Continue home statin regimen. 7. Hypothyroidism: Continue home synthroid regimen. 8. Irregular heart rate: Patient primarily seems to be with respirations, to be cautious will obtain EKG. 9. DVT prophylaxis: SCDs, heparin. 10. CODE status: Patient's daughter present and is his healthcare power of contract attorney, living will is in place, discussed CODE status at length including difference between FULL code, DNR-CCA and DNR-CC status. Following discussions about the differences in these status, requested DNR-CCA, no intubation status. Advanced Care Planning Face to Face Time: 16 minutes. Code Visit Inpatient E&M: 13347 Init Hosp L3 Procedures: 97538 Advncd Care Plan 30 Min
[2019-03-10] MEDS: Tamsulosin HCl 0.4 MG Capsule PO (19:04)
[2019-03-10] MEDS: Acetaminophen 500 MG Tablet 1000 MG PO (19:18)
[2019-03-10 19:19] VITALS: BP 123/97; PULSE 63
--- NOTE | 2019-03-10 19:36 | ED.RN ---
BILATERAL LEGS CLEANSED, SOAKED WITH SALINE GAUZE AND DRIED. LEFT OPEN TO AIR BUT COVERED WITH CHUX TO ALLOW FURTHER NURSING ASSESSMENT ON FLOOR. PT HAD ARRIVED WITH BILATERAL LEGS SEEPING, SOCKS STUCK TO LEGS. URINE AND FECES NOTED ON LEGS, POOR HYGIENE. SCATTERED OPEN AREAS ON BOTH LEGS, PT STATES DUE TO BUMPING THEM. BOTH LEGS REDDENED, WARM TO TOUCH, RIGHT WORSE THAN LEFT.
[2019-03-10 20:45] VITALS: BMI 29.9
[2019-03-10 21:07] VITALS: BP 132/57; PULSE 72; RESP 18; TEMP 38.1; O2SAT 93
[2019-03-10 21:18] LABS: Magnesium 1.5 mg/dL (1.6-2.6)
[2019-03-10] MEDS: 0.9% Saline Lock 10 ML Syringe IV (21:41)
[2019-03-10] MEDS: 0.9% Normal Saline 1,000 ML 100 ML IV (21:41)
[2019-03-10] MEDS: Insulin Lispro 100 UNIT/ML INSULN.PEN SC (22:32)
[2019-03-10] MEDS: Atorvastatin Calcium 40 MG Tablet PO (22:33)
[2019-03-10] MEDS: Heparin Injection (Vial) 5,000 UNIT/ML VIAL 5000 UNIT SC (22:33)
[2019-03-10 22:45] LABS: Bedside Glucose 201 mg/dL (70-110)
[2019-03-11] MEDS: Acetaminophen 325 MG Tablet 650 MG PO (02:37)
[2019-03-11 02:45] VITALS: BP 147/71; PULSE 85; RESP 18; TEMP 36.8; O2SAT 96
--- NOTE | 2019-03-11 05:55 | EKG12_ITS ---
Test Reason : AM EKG Blood Pressure : / mmHG Vent. Rate : 081 BPM Atrial Rate : 094 BPM P-R Int : 000 ms QRS Dur : 116 ms QT Int : 384 ms P-R-T Axes : 000 -44 090 degrees QTc Int : 446 ms Sinus rhythm with 2nd degree A-V block (Mobitz I) Left axis deviation Left ventricular hypertrophy with QRS widening and repolarization abnormality Abnormal ECG No previous ECGs available Confirmed by CARMINE THAO, MIYA ([id number]), film and video editor QUIQUE HELM ([id number]) on 03/17/2019 9:12:24 AM Referred By: JESUS Confirmed By:MIYA LOU MD
[2019-03-11 06:41] LABS: Bedside Glucose 124 mg/dL (70-110)
[2019-03-11] MEDS: Levothyroxine 75 MCG Tablet PO (06:41)
[2019-03-11] MEDS: 0.9% Normal Saline 1,000 ML 100 ML IV ×2 (06:43→16:30)
[2019-03-11] MEDS: HYDROcodone Bitartrate/Apap 5/325 Tablet PO ×2 (06:44→16:25)
[2019-03-11 07:01] LABS: Absolute Lymphocyte Count 0.92 X10^3/uL (0.83-4.51); Basophil# 0.01 X10^3/uL; Basophil% 0.1 % (0-1); Eosinophil# 0.01 X10^3/uL; Eosinophils% 0.1 % (0-5); Hemoglobin 10.9 g/dL (13.0-16.5); Lymphocyte # 0.92 X10^3/ul (4.0); Lymphocyte % 7.9 % (19-41); Mean Corpuscular Hgb 29.6 pg (27.0-32.0); Mean Corpuscular Volume 89.7 fL (80-94); Monocyte# 0.55 X10^3/uL; Monocyte% 4.7 % (0-10); NRBC Flagged by Analyzer 0 % (0-5); Neutrophil # 10.04 X10^3/uL (2.7-7.7); Neutrophil % 86.6 % (47-70); Platelet Count 169 K/mm3 (150-450); RBC Distribution Width CV 12.9 % (11.6-14.6); RBC Distribution Width SD 42.6 fl (35.1-43.9); Red Blood Count 3.68 M/mm3 (4.6-6.2); White Blood Count 11.6 K/mm3 (4.4-11.0)
[2019-03-11 07:08] LABS: Anion Gap 7 (5-15); BUN 29 mg/dL (7-18); BUN/Creat Ratio 17.1 RATIO (10-20); Calcium,Total 8.4 mg/dL (8.5-10.1); Chloride 110 mmol/L (98-107); EST Glomerular Filtration Rate 41 mL/min (>60); Est Glom Filt Rate - Afr Amer 50 mL/min (>60); Estimated Creatinine Clearance 36.14 ml/min; Glucose 130 mg/dL (74-106); Potassium 3.8 mmol/L (3.5-5.1); Sodium Level 141 mmol/L (136-145)
--- NOTE | 2019-03-11 08:11 | PN_ITS ---
Patient Problems: Active and Suspected Problems Bilateral lower leg cellulitis (Acute) Acute urinary retention (Acute) Acute kidney injury (Acute) Dehydration (Acute) Cellulitis (Acute) Reason for Visit: Follow-up; acute urinary retention; right lower extremity cellulitis Subjective: Patient is an 83-year-old gentleman with multiple comorbidities admitted with urinary retention. Subsequent assessment also did reveal the presence of acute right lower extremity cellulitis Objective: GENERAL: cooperative HEENT: Atraumatic; EYES; Anicteric, Normal Conjunctiva NECK; supple, normal thyroid, RESPIRATORY: Diminished to auscultation CARDIOVASCULAR: Regular S1 S2, GI: soft, normoactive bowel sounds, : Catheter in place EXTREMITIES: stasis dermatitis MUSCULOSKELETAL: no muscle waisting NEURO: Awake; no lateralizing signs. SKIN: stasis dermatitis involving the lower extremities PSYCH; Flat affect Vitals/I&O's: Vital Signs Temp Pulse Resp BP Pulse Ox 98.3 F 85 18 147/71 H 96 03/11/19 02:45 03/11/19 02:45 03/11/19 02:45 03/11/19 02:45 03/11/19 02:45 Oxygen Delivery Method Room Air Weight: 100 kg Body Mass Index (BMI) 29.9 Intake and Output for Last 24 Hours 03/09/19 03/10/19 03/11/19 23:59 23:59 23:59 Intake Total 2340.83 / 2340.83 1071.67 / 1071.67 Output Total 2024 425 / 425 Balance 315.83 / 315.83 646.67 / 646.67 Laboratory Results 03/10/19 16:45: Urine Color Yellow, Urine Clarity Clear, Urine pH 6.0, Ur Specific [place] 1.020, Urine Protein 30 H, Urine Glucose (UA) 250 H, Urine Ketones 5 H, Urine Occult Blood Negative, Urine Nitrite Negative, Urine Bilirubin Negative, Urine Urobilinogen Normal, Ur Leukocyte Esterase Negative, Urine RBC 0-5 SEEN, Urine WBC 0-5 SEEN, Ur Squamous Epith Cells 0 SEEN, Ur Transition Epith Cell 0-5 SEEN, Urine Bacteria 0 SEEN, Urine Mucus 0 SEEN 03/10/19 16:55: WBC 13.0 H, RBC 4.18 L, Hgb 12.8 L, Hct 37.9 L, MCV 90.7, MCH 30.6, MCHC 33.8, RDW Std Deviation 42.9, RDW Coeff of Delvis 12.9, Plt Count 199, MPV 11.9, Immature Gran % (Auto) 0.800, Neut % (Auto) 89.4 H, Lymph % (Auto) 4.1 L, [place] % (Auto) 4.5, Eos % (Auto) 1.0, Baso % (Auto) 0.2, Absolute Neuts (auto) 11.6 H, Absolute Lymphs (auto) 0.54 L, Nucleated RBC % 0, Differential Comment 03/10/19 16:55: Sodium 140, Potassium 4.5, Chloride 107, Carbon Dioxide 22.0, Anion Gap 11, BUN 32 H, Creatinine 1.92 H, Estim Creat Clear Calc 32.00, Est GFR (MDRD) Af Amer 43 L, Est GFR (MDRD) Non-Af 36 L, BUN/Creatinine Ratio 16.7, Glucose 263 H, Calcium 9.4 03/10/19 16:55: Magnesium 1.5 L 03/10/19 22:31: POC Glucose 201 H 03/11/19 06:30: WBC 11.6 H, RBC 3.68 L, Hgb 10.9 L, Hct 33.0 L, MCV 89.7, MCH 29.6, MCHC 33.0, RDW Std Deviation 42.6, RDW Coeff of Delvis 12.9, Plt Count 169, MPV 12.0, Immature Gran % (Auto) 0.600, Neut % (Auto) 86.6 H, Lymph % (Auto) 7.9 L, [place] % (Auto) 4.7, Eos % (Auto) 0.1, Baso % (Auto) 0.1, Absolute Neuts (auto) 10.0 H, Absolute Lymphs (auto) 0.92, Nucleated RBC % 0 03/11/19 06:30: Sodium 141, Potassium 3.8, Chloride 110 H, Carbon Dioxide 24.0, Anion Gap 7, BUN 29 H, Creatinine 1.70 H, Estim Creat Clear Calc 36.14, Est GFR (MDRD) Af Amer 50 L, Est GFR (MDRD) Non-Af 41 L, BUN/Creatinine Ratio 17.1, Glucose 130 H, Calcium 8.4 L 03/11/19 06:37: POC Glucose 124 H Current Medications Acetaminophen (Tylenol) 650 mg PO Q6H PRN PRN PRN Reason: Non-cardiac pain (4-1010) Last Admin: 03/11/19 02:37 Dose: 650 mg Documented by: Hydrocodone Bitart/Acetaminophen (Dittmer 5mg-325mg) 1 - 2 tablet PO Q4H PRN PRN PRN Reason: Pain Score 4-1010 Last Admin: 03/11/19 06:44 Dose: 1 tablet Documented by: Al Hydroxide/Mg Hydroxide (Mylanta Ii) 15 - 30 ml PO Q4H PRN PRN PRN Reason: INDIGESTION Albuterol Sulfate (Ventolin Aerosols) 2.5 mg INHALATION Q2H PRN PRN PRN Reason: dyspnea, wheezing Atorvastatin Calcium (Lipitor) 40 mg PO QHS [facility] Last Admin: 03/10/19 22:33 Dose: 40 mg Documented by: Glucagon () 1 mg IM .X1 PRN PRN Reason: Hypoglycemia Guaifenesin (Robitussin) 20 ml PO Q4H PRN PRN PRN Reason: COUGH Heparin Sodium (Porcine) (Heparin Na) 5,000 unit SC Q12 [facility] Last Admin: 03/10/19 22:33 Dose: 5,000 unit Documented by: Hydralazine HCl (Apresoline Iv) 10 mg IV Q4H PRN PRN PRN Reason: SBP > 160 Sodium Chloride () 1,000 mls @ 100 mls/hr IV .Q10H [facility] Last Admin: 03/11/19 06:43 Dose: 100 mls/hr Documented by: Sodium Chloride () 250 mls @ 15 mls/hr IV .[id number] PRN PRN Reason: Saline Flush Sodium Chloride () 250 mls @ 15 mls/hr IV .[id number] PRN PRN Reason: Additional IVPB Infusion Dextrose (Dextrose 10%-Water) 250 mls @ 999 mls/hr IV .Q16M PRN; Protocol PRN Reason: HYPOGLYCEMIA Cefazolin Sodium 0.5 gm/ (Dextrose) 52.5 mls @ 105 mls/hr IV Q12 [facility] Last Infusion: 03/10/19 23:30 Dose: Infused Documented by: Insulin Human Lispro (Humalog Kwmaidapen (Bkc)) 0 unit SC ACHS [facility]; Protocol Last Admin: 03/11/19 06:43 Dose: Not Given Documented by: Levothyroxine Sodium (Synthroid) 75 mcg PO DAILY@0600 ADRIAN Last Admin: 03/11/19 06:41 Dose: 75 mcg Documented by: Lisinopril (Zestril) 10 mg PO DAILY [facility] Magnesium Hydroxide (Milk Of Magnesia) 30 ml PO DAILY PRN PRN Reason: Constipation Melatonin (Melatonin) 3 mg PO QHS PRN PRN PRN Reason: INSOMNIA Morphine Sulfate () 1 - 2 mg IV Q4H PRN PRN PRN Reason: Pain Score 1-10/10 Ondansetron HCl (Zofran) 4 mg IV Q8H PRN PRN PRN Reason: NAUSEA/VOMITING Psyllium Hydrophilic Mucilloid (Metamucil) 1 packet PO DAILY PRN PRN PRN Reason: Constipation Senna/Docusate Sodium (Senokot-S, Joanne-Colace) 2 tablet PO BID PRN PRN PRN Reason: Constipation Sodium Chloride () 10 - 40 ml IV UD PRN PRN Reason: SALINE FLUSH Last Admin: 03/10/19 21:41 Dose: 10 ml Documented by: Tamsulosin HCl (Flomax) 0.4 mg PO BID [facility] Throat Lozenges (Cepacol Sore Throat Lozenge) 1 lozenge MUCOUS MEM Q2H PRN PRN PRN Reason: Sore throat or cough Medical Necessity - Tobacco Use Smoking Status: Never smoker Tobacco Use: Non-smoker Assessment/Plan All Active Problems Bilateral lower leg cellulitis (Acute) Acute urinary retention (Acute) Acute kidney injury (Acute) Dehydration (Acute) Cellulitis (Acute) Patient is an 83-year-old gentleman with multiple comorbidities admitted with urinary retention. Subsequent assessment also did reveal the presence of acute right lower extremity cellulitis 1. Acute renal retention ?Jennings catheter was placed in the ED started on Flomax. Consultation placed to neurology Case discussed with Dr. Anderson with plans for patient to be discharged home with a Jennings when ready with subsequent follow-up in the office for a voiding trial 2. Right lower extremity cellulitis In the setting of chronic venous stasis. Patient was started on Ancef 3. Diabetes mellitus type II ~Complications including diabetic nephropathy patient's oral hypoglycemics held. Placed on Accu-Cheks a.c. and at bedtime and covered with sliding scale insulin 4. Chronic kidney disease stage III Secondary to diabetic nephropathy Baseline creatinine 1.61.5 patient creatinine on admission was 1.92 started on IV fluid with monitoring of electrolyte 5. Acute kidney injury superimposed on chronic kidney disease patient is on fluids with subsequent monitoring of electrolyte 6. Hypothyroidism ~patient is on levothyroxine home dose continued 7. Hypertension ~ blood pressure controlled, home medications continued with dose adjustment as needed 8. Dyslipidemia ~patient is on statin therapy, continued at home dose 9. DVT prophylaxis ~SCDs, heparin. Active Medications Acetaminophen (Tylenol) 650 mg PO Q6H PRN PRN PRN Reason: Non-cardiac pain (4-10/10) Last Admin: 03/11/19 02:37 Dose: 650 mg Documented by: Hydrocodone Bitart/Acetaminophen (Dittmer 5mg-325mg) 1 - 2 tablet PO Q4H PRN PRN PRN Reason: Pain Score 4-10/10 Last Admin: 03/11/19 06:44 Dose: 1 tablet Documented by: Al Hydroxide/Mg Hydroxide (Mylanta Ii) 15 - 30 ml PO Q4H PRN PRN PRN Reason: INDIGESTION Albuterol Sulfate (Ventolin Aerosols) 2.5 mg INHALATION Q2H PRN PRN PRN Reason: dyspnea, wheezing Atorvastatin Calcium (Lipitor) 40 mg PO QHS [facility] Last Admin: 03/10/19 22:33 Dose: 40 mg Documented by: Glucagon () 1 mg IM .X1 PRN PRN Reason: Hypoglycemia Guaifenesin (Robitussin) 20 ml PO Q4H PRN PRN PRN Reason: COUGH Heparin Sodium (Porcine) (Heparin Na) 5,000 unit SC Q12 [facility] Last Admin: 03/11/19 10:14 Dose: 5,000 unit Documented by: Hydralazine HCl (Apresoline Iv) 10 mg IV Q4H PRN PRN PRN Reason: SBP > 160 Sodium Chloride () 1,000 mls @ 100 mls/hr IV .Q10H [facility] Last Infusion: 03/11/19 10:14 Dose: 0 mls/hr Documented by: Sodium Chloride () 250 mls @ 15 mls/hr IV .[id number] PRN PRN Reason: Saline Flush Sodium Chloride () 250 mls @ 15 mls/hr IV .[id number] PRN PRN Reason: Additional IVPB Infusion Dextrose (Dextrose 10%-Water) 250 mls @ 999 mls/hr IV .Q16M PRN; Protocol PRN Reason: HYPOGLYCEMIA Cefazolin Sodium 0.5 gm/ (Dextrose) 52.5 mls @ 105 mls/hr IV Q12 [facility] Last Admin: 03/11/19 10:13 Dose: 105 mls/hr Documented by: Insulin Human Lispro (Humalog Kwikpen (Bkc)) 0 unit SC ACHS [facility]; Protocol Last Admin: 03/11/19 06:43 Dose: Not Given Documented by: Levothyroxine Sodium (Synthroid) 75 mcg PO DAILY@0600 [facility] Last Admin: 03/11/19 06:41 Dose: 75 mcg Documented by: Lisinopril (Zestril) 10 mg PO DAILY [facility] Last Admin: 03/11/19 10:14 Dose: 10 mg Documented by: Magnesium Hydroxide (Milk Of Magnesia) 30 ml PO DAILY PRN PRN Reason: Constipation Melatonin (Melatonin) 3 mg PO QHS PRN PRN PRN Reason: INSOMNIA Morphine Sulfate () 1 - 2 mg IV Q4H PRN PRN PRN Reason: Pain Score 1-10/10 Ondansetron HCl (Zofran) 4 mg IV Q8H PRN PRN PRN Reason: NAUSEA/VOMITING Psyllium Hydrophilic Mucilloid (Metamucil) 1 packet PO DAILY PRN PRN PRN Reason: Constipation Senna/Docusate Sodium (Senokot-S, Joanne-Colace) 2 tablet PO BID PRN PRN PRN Reason: Constipation Sodium Chloride () 10 - 40 ml IV UD PRN PRN Reason: SALINE FLUSH Last Admin: 03/10/19 21:41 Dose: 10 ml Documented by: Tamsulosin HCl (Flomax) 0.4 mg PO BID [facility] Last Admin: 03/11/19 10:14 Dose: 0.4 mg Documented by: Throat Lozenges (Cepacol Sore Throat Lozenge) 1 lozenge MUCOUS MEM Q2H PRN PRN PRN Reason: Sore throat or cough Code Visit Inpatient E&M: 89519 [facility] Hosp L2
[2019-03-11 09:00] VITALS: BP 129/60; PULSE 73; RESP 18; TEMP 36.8; O2SAT 97
--- NOTE | 2019-03-11 09:19 | PCM.CONS.U ---
Problem List (1) Acute urinary retention Status: Acute Reason for Consult Date of Consultation: 03/11/19 Reason for Consultation: Urinary retention and elevated PSA History of Present Illness: The patient is a 83 year old male who is known to our practice who presented to the hospital with acute urinary retention over 1700 L in his bladder he states that he was normal urinating till about few days ago he started having more difficulties going pressure urgency could not empty his bladder. In the past he had 2- biopsies of the prostate. In the past he also had an elevated PSA and was followed by a urologist. Last appointment was a few years ago. Came in with acute urinary retention also has lower leg edema and open sores which are being taken care of. He was started on Flomax. Past Medical History Past Medical History (Chronic Problems): Chronic Problems CKD (chronic kidney disease), stage III (Chronic) HTN (hypertension) (Chronic) HLD (hyperlipidemia) (Chronic) Hypothyroidism (Chronic) Diabetes mellitus, type II (Chronic) Allergies No Known Allergies Allergy (Verified 03/10/19 16:14) Home Medications: Ambulatory Orders Medication Instructions Recorded Atorvastatin Calcium 40 mg PO QHS 03/10/19 Glimepiride 4 mg PO DAILY 03/10/19 Levothyroxine [Synthroid] 75 mcg PO DAILY 03/10/19 Lisinopril [Zestril] 10 mg PO DAILY 03/10/19 Metformin HCl 1,000 mg PO BID 03/10/19 Surgical History: noncontributory, - - Nephrolithiasis intervention remotely, tonsillectomy remotely. Psychiatric History: No pertinent psych hx Lives: Alone Smoking Status: Never smoker Tobacco Use: Non-smoker Alcohol: None Drugs: None - *Family History Maternal History Items: Diabetes Paternal History Items: Diabetes Review of Systems Constitutional: Denies: Chills, Fever, Weight Change HEENT: Denies: Head Aches, Sinus Congestion, Sinus Drainage Cardiovascular: Denies: Chest Pain, Palpitations Respiratory: Denies: Cough, Shortness of breath at rest, Sputum production Gastrointestinal: Denies: Abdominal Pain, Nausea, Vomiting Genitourinary: Reports: Hesitancy, Retention, Urgency Musculoskeletal: Denies: Joint Pain, Joint Tenderness Skin: Denies: Rash, Wounds Neurological: Denies: Numbness, Tingling, Focal weakness Psychiatric: Denies: Anxiety, Depression, Homicidal Ideations, Suicidal Ideations Hematologic/ Lymphatic: Denies: Easy Bruising, Easy Bleeding Physical Exam - Physical Exam Vital Signs Temp 98.3 F 03/11/19 02:45 Pulse 85 03/11/19 02:45 Resp 18 03/11/19 02:45 BP 147/71 H 03/11/19 02:45 Pulse Ox 96 03/11/19 02:45 Intake & Output 03/09/19 03/10/19 03/11/19 23:59 23:59 23:59 Intake Total 2340.83 / 2340.83 1071.67 / 1071.67 Output Total 2024 425 / 425 Balance 315.83 / 315.83 646.67 / 646.67 Weight: 100 kg Intake: Oral 150 / 150 350 / 350 Intake, IV Amount 2190.83 / 2190.83 721.67 / 721.67 0.9% Normal Saline 1,000 ML @ 88.33 / 88.33 721.67 / 721.67 100 mls/hr IV .Q10H [facility] Rx#: [id number] Ancef 0.5 GM In Dextrose 5%- 52.5 / 52.5 Water 50 ML @ 105 mls/hr IV Q12 [facility] Rx#:[id number] Lactated Ringers 1,000 ML @ 999 2000 / 2000 mls/hr IV .Q2H1M [facility] Rx#: [id number] Unasyn 1,500 MG In 0.9% Normal 50 / 50 Saline 50 ML @ 100 mls/hr IV X1 ONE Rx#:[id number] Output: Urine 2024 425 / 425 General: Alert, Oriented x3 HEENT: Atraumatic, PERRLA Oral: Moist Mucosa Neck: Supple Lungs: Normal air movement Cardiovascular: Regular rate Abdomen: Soft Rectal: Exam deferred Laboratory Tests Past 24 Hrs 03/10/19 03/10/19 03/10/19 16:45 16:55 16:55 WBC 13.0 H RBC 4.18 L Hgb 12.8 L Hct 37.9 L MCV 90.7 MCH 30.6 MCHC 33.8 RDW Std Deviation 42.9 RDW Coeff of Delvis 12.9 Plt Count 199 MPV 11.9 Immature Gran % (Auto) 0.800 Neut % (Auto) 89.4 H Lymph % (Auto) 4.1 L [place] % (Auto) 4.5 Eos % (Auto) 1.0 Baso % (Auto) 0.2 Absolute Neuts (auto) 11.6 H Absolute Lymphs (auto) 0.54 L Nucleated RBC % 0 Differential Comment Sodium 140 Potassium 4.5 Chloride 107 Carbon Dioxide 22.0 Anion Gap 11 BUN 32 H Creatinine 1.92 H Estim Creat Clear Calc 32.00 Est GFR (MDRD) Af Amer 43 L Est GFR (MDRD) Non-Af 36 L BUN/Creatinine Ratio 16.7 Glucose 263 H Calcium 9.4 Magnesium Urine Color Yellow Urine Clarity Clear Urine pH 6.0 Ur Specific [place] 1.020 Urine Protein 30 H Urine Glucose (UA) 250 H Urine Ketones 5 H Urine Occult Blood Negative Urine Nitrite Negative Urine Bilirubin Negative Urine Urobilinogen Normal Ur Leukocyte Esterase Negative Urine RBC 0-5 SEEN Urine WBC 0-5 SEEN Ur Squamous Epith Cells 0 SEEN Ur Transition Epith Cell 0-5 SEEN Urine Bacteria 0 SEEN Urine Mucus 0 SEEN 03/10/19 03/11/19 03/11/19 16:55 06:30 06:30 WBC 11.6 H RBC 3.68 L Hgb 10.9 L Hct 33.0 L MCV 89.7 MCH 29.6 MCHC 33.0 RDW Std Deviation 42.6 RDW Coeff of Delvis 12.9 Plt Count 169 MPV 12.0 Immature Gran % (Auto) 0.600 Neut % (Auto) 86.6 H Lymph % (Auto) 7.9 L [place] % (Auto) 4.7 Eos % (Auto) 0.1 Baso % (Auto) 0.1 Absolute Neuts (auto) 10.0 H Absolute Lymphs (auto) 0.92 Nucleated RBC % 0 Differential Comment Sodium 141 Potassium 3.8 Chloride 110 H Carbon Dioxide 24.0 Anion Gap 7 BUN 29 H Creatinine 1.70 H Estim Creat Clear Calc 36.14 Est GFR (MDRD) Af Amer 50 L Est GFR (MDRD) Non-Af 41 L BUN/Creatinine Ratio 17.1 Glucose 130 H Calcium 8.4 L Magnesium 1.5 L Urine Color Urine Clarity Urine pH Ur Specific [place] Urine Protein Urine Glucose (UA) Urine Ketones Urine Occult Blood Urine Nitrite Urine Bilirubin Urine Urobilinogen Ur Leukocyte Esterase Urine RBC Urine WBC Ur Squamous Epith Cells Ur Transition Epith Cell Urine Bacteria Urine Mucus Assessment/Plan All Active Problems Bilateral lower leg cellulitis (Acute) Acute urinary retention (Acute) Acute kidney injury (Acute) Dehydration (Acute) Cellulitis (Acute) 83-year-old male with multiple medical problems presents with acute urinary retention. He is started on Flomax appropriately he will need to go home with a catheter with his large prostate. We can do a voiding trial as an outpatient also explained to the patient is possible he may need prostate surgery if he fails a voiding trial as long as he passes medical clearance. His daughter was with him today and she will make an appointment with us to see him in the morning after he is discharged for a catheter removal and voiding trial.
[2019-03-11 09:44] LABS: PSA,Total- Diagnostic 7.14 ng/mL (0.0-4.0)
[2019-03-11] MEDS: Heparin Injection (Vial) 5,000 UNIT/ML VIAL 5000 UNIT SC ×2 (10:14→22:14)
[2019-03-11] MEDS: Lisinopril 10 MG Tablet PO (10:14)
[2019-03-11] MEDS: Tamsulosin HCl 0.4 MG Capsule PO ×2 (10:14→22:16)
[2019-03-11 10:29] VITALS: RESP 18; O2SAT 94
[2019-03-11 15:00] VITALS: BP 129/63; PULSE 75; RESP 18; TEMP 37.1; O2SAT 97
[2019-03-11 15:16] LABS: Bedside Glucose 156 mg/dL (70-110)
[2019-03-11 16:35] LABS: Bedside Glucose 98 mg/dL (70-110)
[2019-03-11 21:42] VITALS: BP 133/69; PULSE 73; RESP 18; TEMP 37.2; O2SAT 98
[2019-03-11] MEDS: Atorvastatin Calcium 40 MG Tablet PO (22:16)
[2019-03-12 00:11] LABS: Bedside Glucose 122 mg/dL (70-110)
[2019-03-12] MEDS: 0.9% Normal Saline 1,000 ML 100 ML IV ×3 (02:30→22:50)
[2019-03-12 02:31] VITALS: BP 147/63; PULSE 82; RESP 18; TEMP 37.1; O2SAT 96
[2019-03-12] MEDS: HYDROcodone Bitartrate/Apap 5/325 Tablet PO (02:35)
[2019-03-12 05:49] LABS: Absolute Lymphocyte Count 0.94 X10^3/uL (0.83-4.51); Absolute Neutrophil Count 6.5 X10^3/uL (2.0-7.7); Basophil# 0.01 X10^3/uL; Basophil% 0.1 % (0-1); Eosinophil# 0.31 X10^3/uL; Eosinophils% 3.7 % (0-5); Hemoglobin 10.3 g/dL (13.0-16.5); Lymphocyte # 0.94 X10^3/ul (4.0); Lymphocyte % 11.2 % (19-41); Mean Corp Hgb Conc 33.2 g/dL (32-36); Mean Corpuscular Hgb 29.9 pg (27.0-32.0); Mean Corpuscular Volume 89.9 fL (80-94); Mean Platelet Vol. 11.4 fl (6.2-12.0); Monocyte# 0.61 X10^3/uL; Monocyte% 7.2 % (0-10); NRBC Flagged by Analyzer 0 % (0-5); Neutrophil # 6.53 X10^3/uL (2.7-7.7); Neutrophil % 77.4 % (47-70); Platelet Count 163 K/mm3 (150-450); RBC Distribution Width CV 12.9 % (11.6-14.6); RBC Distribution Width SD 42.8 fl (35.1-43.9); Red Blood Count 3.45 M/mm3 (4.6-6.2); White Blood Count 8.4 K/mm3 (4.4-11.0)
[2019-03-12] MEDS: 0.9% Saline Lock 10 ML Syringe IV (05:53)
[2019-03-12] MEDS: Levothyroxine 75 MCG Tablet PO (05:53)
[2019-03-12 06:07] LABS: Anion Gap 6 (5-15); BUN 24 mg/dL (7-18); BUN/Creat Ratio 16.4 RATIO (10-20); Calcium,Total 7.4 mg/dL (8.5-10.1); Chloride 109 mmol/L (98-107); Creatinine, Serum 1.46 mg/dL (0.70-1.30); EST Glomerular Filtration Rate 49 mL/min (>60); Est Glom Filt Rate - Afr Amer 59 mL/min (>60); Estimated Creatinine Clearance 42.08 ml/min; Glucose 98 mg/dL (74-106); Magnesium 1.4 mg/dL (1.6-2.6); Potassium 3.9 mmol/L (3.5-5.1); Sodium Level 139 mmol/L (136-145)
[2019-03-12 06:50] LABS: Bedside Glucose 89 mg/dL (70-110)
[2019-03-12 08:06] VITALS: O2SAT 96
[2019-03-12 08:30] VITALS: BP 141/78; PULSE 75; RESP 16; TEMP 36.9; O2SAT 95
--- NOTE | 2019-03-12 08:36 | PN_ITS ---
Patient Problems: Active and Suspected Problems Bilateral lower leg cellulitis (Acute) Acute urinary retention (Acute) Acute kidney injury (Acute) Dehydration (Acute) Cellulitis (Acute) Reason for Visit: Follow-up; acute urinary retention; right lower extremity cellulitis Subjective: Patient seen the erythema involving the right lower extremity persist. Magnesium is 1.4 this a.m. repletion initiated Objective: GENERAL: cooperative HEENT: Atraumatic; EYES; Anicteric, Normal Conjunctiva NECK; supple, normal thyroid, RESPIRATORY: Diminished to auscultation CARDIOVASCULAR: Regular S1 S2, GI: soft, normoactive bowel sounds, : Catheter in place EXTREMITIES: stasis dermatitis MUSCULOSKELETAL: no muscle waisting NEURO: Awake; no lateralizing signs. SKIN: stasis dermatitis involving the lower extremities PSYCH; Flat affect Vitals/I&O's: Vital Signs Temp Pulse Resp BP Pulse Ox 98.7 F 82 18 147/63 H 96 03/12/19 02:31 03/12/19 02:31 03/12/19 02:31 03/12/19 02:03/12/19 08:06 Oxygen Delivery Method Room Air Weight: 100 kg Body Mass Index (BMI) 29.9 Intake and Output for Last 24 Hours 03/10/19 03/11/19 03/12/19 23:59 23:59 23:59 Intake Total 2340.83 / 2340.83 2876.67 / 2876.67 581.67 / 581.67 Output Total 2024 / 2024 1625 / 1625 400 / 400 Balance 315.83 / 315.83 1251.67 / 1251.67 181.67 / 181.67 Laboratory Results 03/11/19 06:30: Total PSA 7.14 H 03/11/19 12:19: POC Glucose 156 H 03/11/19 16:28: POC Glucose 98 03/11/19 22:18: POC Glucose 122 H 03/12/19 05:35: WBC 8.4, RBC 3.45 L, Hgb 10.3 L, Hct 31.0 L, MCV 89.9, MCH 29.9, MCHC 33.2, RDW Std Deviation 42.8, RDW Coeff of Delvis 12.9, Plt Count 163, MPV 11.4, Immature Gran % (Auto) 0.400, Neut % (Auto) 77.4 H, Lymph % (Auto) 11.2 L, [place] % (Auto) 7.2, Eos % (Auto) 3.7, Baso % (Auto) 0.1, Absolute Neuts (auto) 6.5, Absolute Lymphs (auto) 0.94, Nucleated RBC % 0 03/12/19 05:35: Sodium 139, Potassium 3.9, Chloride 109 H, Carbon Dioxide 24.0, Anion Gap 6, BUN 24 H, Creatinine 1.46 H, Estim Creat Clear Calc 42.08, Est GFR (MDRD) Af Amer 59 L, Est GFR (MDRD) Non-Af 49 L, BUN/Creatinine Ratio 16.4, Glucose 98, Calcium 7.4 L, Magnesium 1.4 L 03/12/19 06:32: POC Glucose 89 Current Medications Acetaminophen (Tylenol) 650 mg PO Q6H PRN PRN PRN Reason: Non-cardiac pain (4-10/10) Last Admin: 03/11/19 02:37 Dose: 650 mg Documented by: Hydrocodone Bitart/Acetaminophen ([place] 5mg-325mg) 1 - 2 tablet PO Q4H PRN PRN PRN Reason: Pain Score 4-10/10 Last Admin: 03/12/19 02:35 Dose: 1 tablet Documented by: Al Hydroxide/Mg Hydroxide (Mylanta Ii) 15 - 30 ml PO Q4H PRN PRN PRN Reason: INDIGESTION Albuterol Sulfate (Ventolin Aerosols) 2.5 mg INHALATION Q2H PRN PRN PRN Reason: dyspnea, wheezing Atorvastatin Calcium (Lipitor) 40 mg PO QHS [facility] Last Admin: 03/11/19 22:16 Dose: 40 mg Documented by: Glucagon () 1 mg IM .X1 PRN PRN Reason: Hypoglycemia Guaifenesin (Robitussin) 20 ml PO Q4H PRN PRN PRN Reason: COUGH Heparin Sodium (Porcine) (Heparin Na) 5,000 unit SC Q12 [facility] Last Admin: 03/11/19 22:14 Dose: 5,000 unit Documented by: Hydralazine HCl (Apresoline Iv) 10 mg IV Q4H PRN PRN PRN Reason: SBP > 160 Sodium Chloride () 1,000 mls @ 100 mls/hr IV .Q10H [facility] Last Admin: 03/12/19 02:30 Dose: 100 mls/hr Documented by: Sodium Chloride () 250 mls @ 15 mls/hr IV .[id number] PRN PRN Reason: Saline Flush Sodium Chloride () 250 mls @ 15 mls/hr IV .[id number] PRN PRN Reason: Additional IVPB Infusion Dextrose (Dextrose 10%-Water) 250 mls @ 999 mls/hr IV .Q16M PRN; Protocol PRN Reason: HYPOGLYCEMIA Cefazolin Sodium 0.5 gm/ (Dextrose) 52.5 mls @ 105 mls/hr IV Q12 [facility] Last Infusion: 03/11/19 22:41 Dose: Infused Documented by: Magnesium Sulfate () 4 gm in 100 mls @ 25 mls/hr IV X1 ONE Stop: 03/12/19 11:01 Insulin Human Lispro (Humalog Kwikpen (Bkc)) 0 unit SC ACHS [facility]; Protocol Last Admin: 03/12/19 06:33 Dose: Not Given Documented by: Levothyroxine Sodium (Synthroid) 75 mcg PO DAILY@0600 [facility] Last Admin: 03/12/19 05:53 Dose: 75 mcg Documented by: Lisinopril (Zestril) 10 mg PO DAILY [facility] Last Admin: 03/11/19 10:14 Dose: 10 mg Documented by: Magnesium Hydroxide (Milk Of Magnesia) 30 ml PO DAILY PRN PRN Reason: Constipation Magn[facility] ([facility]Ox 400) [facility] Melatonin (Melatonin) 3 mg PO QHS PRN PRN PRN Reason: INSOMNIA Morphine Sulfate () 1 - 2 mg IV Q4H PRN PRN PRN Reason: Pain Score 1-10/10 Ondansetron HCl (Zofran) 4 mg IV Q8H PRN PRN PRN Reason: NAUSEA/VOMITING Psyllium Hydrophilic Mucilloid (Metamucil) 1 packet PO DAILY PRN PRN PRN Reason: Constipation Senna/Docusate Sodium (Senokot-S, Joanne-Colace) 2 tablet PO BID PRN PRN PRN Reason: Constipation Sodium Chloride () 10 - 40 ml IV UD PRN PRN Reason: SALINE FLUSH Last Admin: 03/12/19 05:53 Dose: 10 ml Documented by: Tamsulosin HCl (Flomax) 0.4 mg PO BID [facility] Last Admin: 03/11/19 22:16 Dose: 0.4 mg Documented by: Throat Lozenges (Cepacol Sore Throat Lozenge) 1 lozenge MUCOUS MEM Q2H PRN PRN PRN Reason: Sore throat or cough STROKE Vital Signs/Narrative: Vital Signs Pulse Ox 03/12/19 08:06 96 Medical Necessity - Tobacco Use Smoking Status: Never smoker Tobacco Use: Non-smoker Assessment/Plan All Active Problems Bilateral lower leg cellulitis (Acute) Acute urinary retention (Acute) Acute kidney injury (Acute) Dehydration (Acute) Cellulitis (Acute) Patient is an 83-year-old gentleman with multiple comorbidities admitted with urinary retention. Subsequent assessment also did reveal the presence of acute right lower extremity cellulitis 1. Acute renal retention ?Jennings catheter was placed in the ED started on Flomax. Consultation placed to neurology Case discussed with Dr. Anderson with plans for patient to be discharged home with a Jennings when ready with subsequent follow-up in the office for a voiding trial 2. Right lower extremity cellulitis In the setting of chronic venous stasis. Patient was started on Ancef 03/12/2019 patient's progress has rather been slow. 3. Diabetes mellitus type II ~Complications including diabetic nephropathy patient's oral hypoglycemics held. Placed on Accu-Cheks a.c. and at bedtime and covered with sliding scale insulin 4. Chronic kidney disease stage III Secondary to diabetic nephropathy Baseline creatinine 1.61.5 patient creatinine on admission was 1.92 started on IV fluid with monitoring of electrolyte 5. Acute kidney injury superimposed on chronic kidney disease patient is on fluids with subsequent monitoring of electrolyte ?03/12/2019: Patient creatinine improving. 6. Hypothyroidism ~patient is on levothyroxine home dose continued 7. Hypertension ~ blood pressure controlled, home medications continued with dose adjustment as needed 8. Dyslipidemia ~patient is on statin therapy, continued at home dose 9. DVT prophylaxis ~SCDs, heparin. 10. Hypomagnesemia ?Corrected per protocol Code Visit Inpatient E&M: 04958 Subs Hosp L2
[2019-03-12] MEDS: Magnesium Sulfate 4gm/100mL 4 GM/100 ML IV.SOLN. IV (08:45)
--- NOTE | 2019-03-12 11:00 | CASEMGMT ---
RN CM Face to Face with patient for initial transition planning/care coordination assessment. RN CM introduced self and role at [facility]. Patient lying in bed, alert and oriented. Patient willing to participate in assessment and is able to answer all questions appropriately. Care providers, pharmacy, and demographics verified. Patient wishes to discharge home, denies need for home health at this time. Patient states he has no further needs or concerns at this time. CM to follow for discharge planning needs that may arise. PCP: Chris Specialists: none Preferred Pharmacy: [facility] Insurance: [facility] Prescription Benefit: yes Living Will/HPOA: daughter Gloria Kaminski LNOK: daughter and son Living Arrangements: Patient lives alone in 1 story home with 2 steps to enter the home. Patient is independent at home prior to hospitalization. Transportation: self/family DME/HHC: Patient states he has cane and grab bars at home. Will monitor for need for walker. No previous HHC. Disposition Plan: Patient to discharge home with family support and follow-up plans in place. Emilia MODI, RN, CM
[2019-03-12] MEDS: Tamsulosin HCl 0.4 MG Capsule PO ×2 (11:11→22:50)
[2019-03-12] MEDS: Heparin Injection (Vial) 5,000 UNIT/ML VIAL 5000 UNIT SC ×2 (11:11→22:50)
[2019-03-12] MEDS: Lisinopril 10 MG Tablet PO (11:11)
[2019-03-12 11:40] LABS: Bedside Glucose 138 mg/dL (70-110)
--- NOTE | 2019-03-12 13:12 | NURSING ---
wound photo: right lower leg
--- NOTE | 2019-03-12 13:13 | NURSING ---
wound photo: left lower leg
[2019-03-12 15:30] VITALS: BP 150/79; PULSE 85; RESP 18; TEMP 37.1; O2SAT 95
[2019-03-12] MEDS: Magnesium Oxide 400 MG Tablet PO (16:34)
[2019-03-12 16:40] LABS: Bedside Glucose 138 mg/dL (70-110)
[2019-03-12 20:28] VITALS: BP 136/72; PULSE 84; RESP 18; TEMP 37.2; O2SAT 97
[2019-03-12] MEDS: Atorvastatin Calcium 40 MG Tablet PO (22:50)
[2019-03-12] MEDS: Insulin Lispro 100 UNIT/ML INSULN.PEN SC (22:54)
[2019-03-12 23:03] VITALS: BP 149/82; PULSE 78; RESP 18; TEMP 37.6; O2SAT 97
[2019-03-12 23:06] LABS: Bedside Glucose 186 mg/dL (70-110)
[2019-03-13 04:04] VITALS: BP 149/80; PULSE 80; RESP 18; TEMP 37.3; O2SAT 97
[2019-03-13] MEDS: Levothyroxine 75 MCG Tablet PO (06:31)
[2019-03-13 06:55] LABS: Bedside Glucose 145 mg/dL (70-110)
[2019-03-13 07:01] LABS: Absolute Lymphocyte Count 0.99 X10^3/uL (0.83-4.51); Absolute Neutrophil Count 4.7 X10^3/uL (2.0-7.7); Basophil# 0.01 X10^3/uL; Basophil% 0.2 % (0-1); Eosinophil# 0.37 X10^3/uL; Eosinophils% 5.6 % (0-5); Hematocrit 32.2 % (40-54); Hemoglobin 10.8 g/dL (13.0-16.5); Lymphocyte # 0.99 X10^3/ul (4.0); Lymphocyte % 14.9 % (19-41); Mean Corp Hgb Conc 33.5 g/dL (32-36); Mean Corpuscular Hgb 30.1 pg (27.0-32.0); Mean Corpuscular Volume 89.7 fL (80-94); Mean Platelet Vol. 11.6 fl (6.2-12.0); Monocyte# 0.57 X10^3/uL; Monocyte% 8.6 % (0-10); NRBC Flagged by Analyzer 0 % (0-5); Neutrophil # 4.68 X10^3/uL (2.7-7.7); Neutrophil % 70.2 % (47-70); Platelet Count 186 K/mm3 (150-450); RBC Distribution Width CV 12.5 % (11.6-14.6); RBC Distribution Width SD 41.1 fl (35.1-43.9); Red Blood Count 3.59 M/mm3 (4.6-6.2); White Blood Count 6.7 K/mm3 (4.4-11.0)
[2019-03-13 07:24] LABS: Anion Gap 6 (5-15); BUN 21 mg/dL (7-18); BUN/Creat Ratio 15.4 RATIO (10-20); Calcium,Total 7.9 mg/dL (8.5-10.1); Chloride 112 mmol/L (98-107); Creatinine, Serum 1.36 mg/dL (0.70-1.30); EST Glomerular Filtration Rate 53 mL/min (>60); Est Glom Filt Rate - Afr Amer 64 mL/min (>60); Estimated Creatinine Clearance 45.17 ml/min; Glucose 156 mg/dL (74-106); Sodium Level 140 mmol/L (136-145)
[2019-03-13 08:00] VITALS: O2SAT 94
[2019-03-13 08:34] VITALS: BP 155/79; PULSE 64; RESP 16; TEMP 36.8; O2SAT 94
--- NOTE | 2019-03-13 08:51 | PCM.DC.SUM ---
Discharge Date and Diagnosis - Problem List Patient Problems: Active and Suspected Problems Bilateral lower leg cellulitis (Acute) Acute urinary retention (Acute) Acute kidney injury (Acute) Dehydration (Acute) Cellulitis (Acute) Date of Admission: 03/10/19 Date of Discharge: 03/13/19 - Primary Discharge Diagnosis Active and Suspected Problems Bilateral lower leg cellulitis (Acute) Acute urinary retention (Acute) Acute kidney injury (Acute) Dehydration (Acute) Cellulitis (Acute) - Secondary Discharge Diagnosis Chronic Problems CKD (chronic kidney disease), stage III (Chronic) HTN (hypertension) (Chronic) HLD (hyperlipidemia) (Chronic) Hypothyroidism (Chronic) Diabetes mellitus, type II (Chronic) Hospital Course and Treatment Consultations 03/10/19 20:44 Consult: Onc/Wound/underwriting account representative Routine Comment: Summary of Care Provided: Patient is an 83-year-old gentleman with multiple comorbidities admitted with urinary retention. Subsequent assessment also did reveal the presence of acute right lower extremity cellulitis 1. Acute renal retention ?Jennings catheter was placed in the ED started on Flomax. Consultation placed to neurology Case discussed with Dr. Anderson. Patient was discharged home with a Jennings with subsequent follow-up in the office for a voiding trial 2. Right lower extremity cellulitis In the setting of chronic venous stasis. Patient was started on Ancef. Patient did improve with therapy discharged home on cefazolin for 7 more days 3. Diabetes mellitus type II ~Complications including diabetic nephropathy patient's oral hypoglycemics held. Placed on Accu-Cheks a.c. and at bedtime and covered with sliding scale insulin patient glimepiride was discontinued on discharge discontinue with metformin 4. Chronic kidney disease stage III Secondary to diabetic nephropathy Baseline creatinine 1.61.5 patient creatinine on admission was 1.92 started on IV fluid with monitoring of electrolyte ?03/13/2018 creatinine on the day of discharge 1.3. 5. Acute kidney injury superimposed on chronic kidney disease patient is on fluids with subsequent monitoring of electrolyte ?03/12/2019: Patient creatinine improving. 6. Hypothyroidism ~patient is on levothyroxine home dose continued 7. Hypertension ~ blood pressure controlled, home medications continued with dose adjustment as needed 8. Dyslipidemia ~patient is on statin therapy, continued at home dose 9. DVT prophylaxis ~SCDs, heparin. 10. Hypomagnesemia ?Corrected per protocol Patient Problems: Active and Suspected Problems Bilateral lower leg cellulitis (Acute) Acute urinary retention (Acute) Acute kidney injury (Acute) Dehydration (Acute) Cellulitis (Acute) Objective: GENERAL: cooperative HEENT: Atraumatic; EYES; Anicteric, Normal Conjunctiva NECK; supple, normal thyroid, RESPIRATORY: Diminished to auscultation CARDIOVASCULAR: Regular S1 S2, GI: soft, normoactive bowel sounds, : Catheter in place EXTREMITIES: stasis dermatitis MUSCULOSKELETAL: no muscle waisting NEURO: Awake; no lateralizing signs. SKIN: stasis dermatitis involving the lower extremities PSYCH; Flat affect - Physical Exam Vitals/I&O's: Vital Signs Temp Pulse Resp BP Pulse Ox 98.3 F 64 16 155/79 H 94 03/13/19 08:34 03/13/19 08:34 03/13/19 08:34 03/13/19 08:34 03/13/19 08:34 Oxygen Delivery Method Room Air Weight: 100 kg Body Mass Index (BMI) 29.9 Intake and Output for Last 24 Hours 03/11/19 03/12/19 03/13/19 23:59 23:59 23:59 Intake Total 2876.67 / 2876.67 3790.00 / 3790.00 500 / 500 Output Total 1625 / 1625 2950 / 2950 1600 / 1600 Balance 1251.67 / 1251.67 840.00 / 840.00 -1100 / -1100 Laboratory Results 03/12/19 11:21: POC Glucose 138 H 03/12/19 16:29: POC Glucose 138 H 03/12/19 22:52: POC Glucose 186 H 03/13/19 06:30: POC Glucose 145 H 03/13/19 06:52: WBC 6.7, RBC 3.59 L, Hgb 10.8 L, Hct 32.2 L, MCV 89.7, MCH 30.1, MCHC 33.5, RDW Std Deviation 41.1, RDW Coeff of Delvis 12.5, Plt Count 186, MPV 11.6, Immature Gran % (Auto) 0.500, Neut % (Auto) 70.2 H, Lymph % (Auto) 14.9 L, [place] % (Auto) 8.6, Eos % (Auto) 5.6 H, Baso % (Auto) 0.2, Absolute Neuts (auto) 4.7, Absolute Lymphs (auto) 0.99, Nucleated RBC % 0 03/13/19 06:52: Sodium 140, Potassium 4.0, Chloride 112 H, Carbon Dioxide 22.0, Anion Gap 6, BUN 21 H, Creatinine 1.36 H, Estim Creat Clear Calc 45.17, Est GFR (MDRD) Af Amer 64, Est GFR (MDRD) Non-Af 53 L, BUN/Creatinine Ratio 15.4, Glucose 156 H, Calcium 7.9 L Current Medications Acetaminophen (Tylenol) 650 mg PO Q6H PRN PRN PRN Reason: Non-cardiac pain (4-12/18) Last Admin: 03/11/19 02:37 Dose: 650 mg Documented by: Hydrocodone Bitart/Acetaminophen ([place] 5mg-325mg) 1 - 2 tablet PO Q4H PRN PRN PRN Reason: Pain Score 4-12/18 Last Admin: 03/12/19 02:35 Dose: 1 tablet Documented by: Al Hydroxide/Mg Hydroxide (Mylanta Ii) 15 - 30 ml PO Q4H PRN PRN PRN Reason: INDIGESTION Albuterol Sulfate (Ventolin Aerosols) 2.5 mg INHALATION Q2H PRN PRN PRN Reason: dyspnea, wheezing Atorvastatin Calcium (Lipitor) 40 mg PO QHS [facility] Last Admin: 03/12/19 22:50 Dose: 40 mg Documented by: Glucagon () 1 mg IM .X1 PRN PRN Reason: Hypoglycemia Guaifenesin (Robitussin) 20 ml PO Q4H PRN PRN PRN Reason: COUGH Heparin Sodium (Porcine) (Heparin Na) 5,000 unit SC Q12 [facility] Last Admin: 03/12/19 22:50 Dose: 5,000 unit Documented by: Hydralazine HCl (Apresoline Iv) 10 mg IV Q4H PRN PRN PRN Reason: SBP > 160 Sodium Chloride () 1,000 mls @ 100 mls/hr IV .Q10H [facility] Last Infusion: 03/12/19 23:22 Dose: 100 mls/hr Documented by: Sodium Chloride () 250 mls @ 15 mls/hr IV .[id number] PRN PRN Reason: Saline Flush Sodium Chloride () 250 mls @ 15 mls/hr IV .[id number] PRN PRN Reason: Additional IVPB Infusion Dextrose (Dextrose 10%-Water) 250 mls @ 999 mls/hr IV .Q16M PRN; Protocol PRN Reason: HYPOGLYCEMIA Cefazolin Sodium 0.5 gm/ (Dextrose) 52.5 mls @ 105 mls/hr IV Q12 [facility] Last Infusion: 03/12/19 23:22 Dose: Infused Documented by: Insulin Human Lispro (Humalog Kwikpen (Bkc)) 0 unit SC ACHS [facility]; Protocol Last Admin: 03/13/19 06:31 Dose: Not Given Documented by: Levothyroxine Sodium (Synthroid) 75 mcg PO DAILY@0600 [facility] Last Admin: 03/13/19 06:31 Dose: 75 mcg Documented by: Lisinopril (Zestril) 10 mg PO DAILY [facility] Last Admin: 03/12/19 11:11 Dose: 10 mg Documented by: Magnesium Hydroxide (Milk Of Magnesia) 30 ml PO DAILY PRN PRN Reason: Constipation [facility] ([facility]-Ox 400) [facility] Last Admin: 03/12/19 16:34 Dose: 400 mg Documented by: Melatonin (Melatonin) 3 mg PO QHS PRN PRN PRN Reason: INSOMNIA Morphine Sulfate () 1 - 2 mg IV Q4H PRN PRN PRN Reason: Pain Score 1-10/10 Ondansetron HCl (Zofran) 4 mg IV Q8H PRN PRN PRN Reason: NAUSEA/VOMITING Psyllium Hydrophilic Mucilloid (Metamucil) 1 packet PO DAILY PRN PRN PRN Reason: Constipation Senna/Docusate Sodium (Senokot-S, Joanne-Colace) 2 tablet PO BID PRN PRN PRN Reason: Constipation Sodium Chloride () 10 - 40 ml IV UD PRN PRN Reason: SALINE FLUSH Last Admin: 03/12/19 05:53 Dose: 10 ml Documented by: Tamsulosin HCl (Flomax) 0.4 mg PO BID [facility] Last Admin: 03/12/19 22:50 Dose: 0.4 mg Documented by: Throat Lozenges (Cepacol Sore Throat Lozenge) 1 lozenge MUCOUS MEM Q2H PRN PRN PRN Reason: Sore throat or cough Discharge Diet: 1800 Calorie Control Diet Discharge Activity: Return to Normal Activity Home Medications: Medications to take at Discharge Atorvastatin Calcium 40 mg PO QHS 03/10/19 Levothyroxine [Synthroid] 75 mcg PO DAILY 03/10/19 Lisinopril [Zestril] 10 mg PO DAILY 03/10/19 Metformin HCl 1,000 mg PO BID 03/10/19 Cephalexin [Keflex] 500 mg PO Q12 #14 cap 03/13/19 Magnesium Oxide [Mag-Ox 400] 400 mg PO DAILY #30 tab 03/13/19 Tamsulosin HCl [Flomax] 0.4 mg PO DAILY #60 cap 03/13/19 Following Prescrptions Were Given to Patient: Tamsulosin HCl [Flomax] 0.4 mg PO DAILY #60 cap Transmission Status: Sent to [facility] Cephalexin [Keflex] 500 mg PO Q12 #14 cap Transmission Status: Pending to [facility] Magnesium Oxide [Mag-Ox 400] 400 mg PO DAILY #30 tab Transmission Status: Pending to [facility]30 Primary Care Physician: Cameron Perez Chi, MD [Primary Care Provider] - Disposition: Home Minutes spent on discharge:: 35 Patient Condition:: Stable Medical Necessity - Tobacco Use Smoking Status: Never smoker Tobacco Use: Non-smoker Meaningful Use Info Meaningful Use Diagnoses (Choose all that apply): None applicable Code Visit Inpatient E&M: 16947 Disch Hosp
[2019-03-13] MEDS: Magnesium Oxide 400 MG Tablet PO (08:55)
--- NOTE | 2019-03-13 08:56 | DCINST_ITS ---
- Discharge Diagnoses Current Active Problems: Current Active and Chronic Problems Bilateral lower leg cellulitis (Acute) Acute urinary retention (Acute) Acute kidney injury (Acute) Dehydration (Acute) Cellulitis (Acute) CKD (chronic kidney disease), stage III (Chronic) HTN (hypertension) (Chronic) HLD (hyperlipidemia) (Chronic) Hypothyroidism (Chronic) Diabetes mellitus, type II (Chronic) You will use the following diet at home:: Calorie/Carbohydrate Controlled (specify 1200, 1400, etc) - 1800 Your food should be the consistency of: Regular Discharge Activity: Return to Normal Activity Allergies/Adverse Reactions: Allergies No Known Allergies Allergy (Verified 03/10/19 16:14) Medications to take at Discharge Atorvastatin Calcium 40 mg PO QHS 03/10/19 Levothyroxine [Synthroid] 75 mcg PO DAILY 03/10/19 Lisinopril [Zestril] 10 mg PO DAILY 03/10/19 Metformin HCl 1,000 mg PO BID 03/10/19 Cephalexin [Keflex] 500 mg PO Q12 #14 cap 03/13/19 Magnesium Oxide [Mag-Ox 400] 400 mg PO DAILY #30 tab 03/13/19 Tamsulosin HCl [Flomax] 0.4 mg PO DAILY #60 cap 03/13/19 The following prescriptions were given: Tamsulosin HCl [Flomax] 0.4 mg PO DAILY #60 cap Transmission Status: Sent to [facility] Cephalexin [Keflex] 500 mg PO Q12 #14 cap Transmission Status: Pending to [facility] #[facility] Magnesium Oxide [Mag-Ox 400] 400 mg PO DAILY #30 tab Transmission Status: Pending to [facility] #30 Primary Care Physician: Cameron Perez Chi, MD [Primary Care Provider] - Please follow up with your Primary Care Physician in: in 5-7 days Test Results: Test results from this visit will be discussed in further detail at your follow- up appointment, if applicable. Please Follow Up With: Mook Anderson MD When: as scheduled Proposed Discharge Date: 03/13/19
--- NOTE | 2019-03-13 10:30 | CASEMGMT ---
LEONARDA SINGLETARY updated that patient would like HHC and walker at discharge. LEONARDA CM in to discuss with patient and daughter. LEONARDA SINGLETARY provided list of in-network HHC and DME. Patient would like [facility] and [facility]. LEONARDA SINGLETARY sent referral to [facility] and they are able to accept the patient. LEONARDA SINGLETARY received script for [facility] and referral sent to [facility]. LEONARDA SINGLETARY arranged for walker to be delivered to [facility] prior to discharge.
[2019-03-13] MEDS: Tamsulosin HCl 0.4 MG Capsule PO (10:57)
[2019-03-13] MEDS: Lisinopril 10 MG Tablet PO (10:57)
== END 2019-03-13 11:56 | disposition home health service (06) | DRG 603 ==
LOC: ED 18:46 → MS3 19:46
PROVIDERS: Urology; Admitting Provider Family Medicine; Emergency Provider Emergency Medicine; Family Provider Family Medicine Geriatric Medicine; PCP Family Medicine Geriatric Medicine; Visit Provider Internal Medicine
DX: L03.115 Cellulitis of right lower limb (principal); N17.9 Acute kidney failure, unspecified; I12.9 Hypertensive chronic kidney disease with stage 1 through stage 4 chronic kidney disease, or unspecified chronic kidney disease; L03.116 Cellulitis of left lower limb; N18.3 Chronic kidney disease, stage 3 (moderate); E11.22 Type 2 diabetes mellitus with diabetic chronic kidney disease; R33.9 Retention of urine, unspecified; E86.0 Dehydration; E83.42 Hypomagnesemia; E03.9 Hypothyroidism, unspecified; E78.5 Hyperlipidemia, unspecified; Z66 Do not resuscitate; Z79.84 Long term (current) use of oral hypoglycemic drugs; Z79.899 Other long term (current) drug therapy
CPT/HCPCS: 36415; 51702; 80048; 81001; 82962; 83735; 84153; 85025; 93005; 96361; 96365; 96366; 96367; 96372; 97162; 97165; 97530; 97535; 97802; 99218; 99251; 99285; J7030; J7040; J7120; A4216; G0378; G0463; J3490

== ENCOUNTER → 2019-03-18 10:32 | Outpatient (CLI) | payer MEDICARE, SELFPAY ==
[2019-03-10 20:45] VITALS: BMI 29.9
[2019-03-18 12:01] LABS: Anion Gap 8 (5-15); BUN 27 mg/dL (7-18); BUN/Creat Ratio 16.5 RATIO (10-20); Calcium,Total 8.9 mg/dL (8.5-10.1); Chloride 100 mmol/L (98-107); Creatinine, Serum 1.64 mg/dL (0.70-1.30); EST Glomerular Filtration Rate 43 mL/min (>60); Est Glom Filt Rate - Afr Amer 52 mL/min (>60); Glucose 315 mg/dL (74-106); Potassium 5.1 mmol/L (3.5-5.1); Sodium Level 132 mmol/L (136-145)
== END ==
PROVIDERS: Family Provider Family Medicine Geriatric Medicine; PCP Family Medicine Geriatric Medicine; Visit Provider Family Medicine Geriatric Medicine
DX: N17.9 Acute kidney failure, unspecified (principal)
CPT/HCPCS: 36415; 80048

== ENCOUNTER → 2019-04-01 09:32 | Outpatient (CLI) | payer MEDICARE, SELFPAY ==
[2019-03-10 20:45] VITALS: BMI 29.9
[2019-04-01 12:24] LABS: Magnesium 1.5 mg/dL (1.6-2.6)
== END ==
PROVIDERS: Family Provider Family Medicine Geriatric Medicine; PCP Family Medicine Geriatric Medicine; Visit Provider Family Medicine Geriatric Medicine
DX: E83.49 Other disorders of magnesium metabolism (principal)
CPT/HCPCS: 36415; 83735

== ENCOUNTER 2019-04-29 11:45 | Day surgery (SDC) | payer MEDICARE, SELFPAY ==
[2019-03-10 20:45] VITALS: BMI 29.9
[2019-04-22 13:42] VITALS: BP 176/85; PULSE 85; RESP 16; TEMP 36.6; O2SAT 98; BMI 34.8
--- NOTE | 2019-04-22 14:01 | SDCEKG_ITS ---
Test Reason : Blood Pressure : / mmHG Vent. Rate : 060 BPM Atrial Rate : 094 BPM P-R Int : 000 ms QRS Dur : 108 ms QT Int : 392 ms P-R-T Axes : 000 -43 077 degrees QTc Int : 392 ms Sinus rhythm with 2nd degree A-V block (Mobitz I) Left axis deviation Septal infarct , age undetermined Abnormal ECG Confirmed by MAE ESCOBEDO ([id number]), research editor IBRAHIMA KWON ([id number]) on 04/24/2019 1:09:38 PM Referred By: Cameron Perez Confirmed By:MAE ESCOBEDO
[2019-04-27 07:53] LABS: Hematocrit 37.3 % (40-54); Hemoglobin 12.2 g/dL (13.0-16.5); Mean Corp Hgb Conc 32.7 g/dL (32-36); Mean Corpuscular Hgb 29.5 pg (27.0-32.0); Mean Corpuscular Volume 90.1 fL (80-94); Mean Platelet Vol. 11.4 fl (6.2-12.0); Platelet Count 239 K/mm3 (150-450); RBC Distribution Width CV 13.2 % (11.6-14.6); Red Blood Count 4.14 M/mm3 (4.6-6.2); White Blood Count 6.2 K/mm3 (4.4-11.0)
[2019-04-27 08:06] LABS: Anion Gap 6 (5-15); BUN 26 mg/dL (7-18); BUN/Creat Ratio 15.8 RATIO (10-20); Calcium,Total 9.2 mg/dL (8.5-10.1); Chloride 105 mmol/L (98-107); Creatinine, Serum 1.65 mg/dL (0.70-1.30); EST Glomerular Filtration Rate 43 mL/min (>60); Est Glom Filt Rate - Afr Amer 51 mL/min (>60); Estimated Creatinine Clearance 32.82 ml/min; Glucose 281 mg/dL (74-106); Potassium 4.8 mmol/L (3.5-5.1); Sodium Level 136 mmol/L (136-145)
[2019-04-27 09:54] LABS: Hemoglobin A1c 9.5 % (4.2-6.3)
[2019-04-27 09:56] LABS: Thyroid Stim Hormone (TSH) 4.91 uIU/mL (0.358-3.74)
[2019-04-29] VITALS (8 sets, daily range): BP systolic 150–187; BP diastolic 69–91; PULSE 55–77; RESP 16–18; TEMP 36.1–36.7; O2SAT 95–100; BMI 33.7
[2019-04-29] MEDS: Lactated Ringers 1,000 ML 100 ML IV ×2 (12:24→17:10)
[2019-04-29 13:21] LABS: Bedside Glucose 260 mg/dL (70-110)
[2019-04-29 13:30] LABS: Bedside Glucose 246 mg/dL (70-110)
--- NOTE | 2019-04-29 14:05 | PROS_PTH ---
PATIENT: WETSON WORTHY LOC: [facility] U#:[id number] AGE/SX: 83/M ROOM: RE04/29/[address]: Dr. Mook Anderson MD : [id number] BED: DIS: 04/30/2019 SPEC #: [id number] RECD: 04/30/19 10:23 STATUS: SEGUNDO REYulissa #: [id number] GRISEL: 04/29/19 14:[address]: Mook Anderson DEPT: SURGICAL PATHOLOGY RECD BY: Mao Frost ENTERED: 04/30/19 10:47 SP TYPE: TURP OTHR DR: Dr. Cameron Perez MD Tissues: Prostate, NOS Procedures: Surgery Specimen Level IV Surgery Specimen Level HEADER OPERATION: Cysto, TUR, prostate, Olympus, Litholapaxy, laser PRE-OP DIAGNOSIS: BPH with obstruction and bladder stone TISSUE SUBMITTED: Bladder stone and prostate tissue MICROSCOPIC DIAGNOSIS Bladder stones and prostate tissue, TUR: Benign prostatic hyperplasia, glandular and stromal type. Multiple fragments of stones, clinically bladder stones (gross only). SJ:mitzy 05/01/19 COMMENT If chemical analysis is requested on this specimen, please notify the laboratory. MICROSCOPIC DESCRIPTION Slides are reviewed. GROSS DESCRIPTION Received in fixative is one container labeled with the patient's name and designated bladder stone and prostate tissue. The specimen consists of multiple irregular fragments of pink-pinedo, rubbery soft tissue mixed with multiple stones that in aggregate weigh 24.9 gm. The soft tissue measures in aggregate 6 x 6 x 1 cm. Also present in the container are multiple dark pinedo to black stones 0.1 to 2 cm in greatest dimension and in aggregate measure 5 x 4 x 1.5 cm. Leak Detection Engineer soft tissue is submitted in 12 cassettes. The stones are for gross identification only. / AM:mitzy 04/30/19 TC:5 CPT: 62212, 02294
[2019-04-29] MEDS: Cefazolin 2 GM in 0.9% Normal Saline 100 ML IV (16:12)
--- NOTE | 2019-04-29 16:20 | DCINST_ITS ---
Discharge Diet: Light diet - advance as tolerated Discharge Activity: Return to Normal Activity, May not drive while taking narcotic pain medications., May Shower Return to work on:: 06/03/19 May shower in (days): 1 May resume sexual activity in: 6 weeks Lifting Restrictions: no lifting. Call your doctor if your incision/area has: Continuous Slow Oozing, Increased Pain/ Swelling, Increased Redness, Foul Smelling Discharge, Swelling at the incision site Call your doctor if you observe: Fever of 101 or Higher Suture Line Care: Avoid Pulling/Pushing, Avoid Pinching/Bending Instructions: Transurethral Resection of the Prostate (TURP): Home Recovery Allergies/Adverse Reactions: Allergies No Known Allergies Allergy (Verified 04/29/19 11:58) Medications to take at Discharge Atorvastatin Calcium 40 mg PO QHS 03/10/19 Levothyroxine [Synthroid] 75 mcg PO DAILY 03/10/19 Lisinopril [Zestril] 10 mg PO DAILY 03/10/19 Metformin HCl 1,000 mg PO BID 03/10/19 Tamsulosin HCl [Flomax] 0.4 mg PO DAILY 04/22/19 Ciprofloxacin [Cipro] 500 mg PO BID #10 tab 04/29/19 Hydrocodone/Acetaminophen [[place] 5-325 Tablet] 1 each PO Q4H PRN PRN 5 Days #14 tablet 04/29/19 The following prescriptions were given: Ciprofloxacin [Cipro] 500 mg PO BID #10 tab Transmission Status: Pending to [facility] - [place] Hydrocodone/Acetaminophen [[place] 5-325 Tablet] 1 each PO Q4H PRN PRN 5 Days #14 tablet PRN Reason: Pain Score 1-10/10 Transmission Status: Sent to [facility] - [place] Orders to be completed after discharge: Basic Metabolic Profile (BMP) Time Frame: 04/23/19, Facility: [facility], Location: Laboratory Hemoglobin A1c Time Frame: 04/23/19, Facility: [facility], Location: Laboratory Primary Care Physician: Cameron Perez Chi, MD [Primary Care Provider] - Test Results: Test results from this visit will be discussed in further detail at your follow- up appointment, if applicable. Please Follow Up With: Mook Anderson MD When: in 2 weeks, please call to make an appointment.
--- NOTE | 2019-04-29 17:51 | PCM.OPRPT ---
Report of Operation Date of Procedure: 04/29/19 Pre-Operative Diagnosis: Bladder stone large 5 cm in size, BPH with obstruction, distended bladder Post-Operative Diagnosis: Same Surgery/Procedure Performed:: Cystoscopy cystolitholapaxy and laser of a very large bladder stone, 5 cm also multiple small stones as well. Transurethral resection of the prostate Description of Surgical Findings:: 83-year-old male was found to have hematuria and BPH on evaluation he underwent a cystoscopy demonstrated a very large stone within the bladder and also significant obstruction within the prostate with bilateral hypertrophy and blockage. Because of this today we can proceed with a laser of the bladder stone and transurethral section of the prostate. 83-year-old male was taken back to the operating room at the smooth induction of general anesthesia he was placed supine on the table in the dorsolithotomy position, penis and testicles were prepped and draped in usual sterile fashion, went into the bladder with a 26 [place] continuous flow Olympus obturator I then put in the laser bridge. We then encountered a large spiculated stone in the bladder is about 5 cm in size. We then used the thousand micron laser fiber the settings were 2.5 J and 10 Hz I then lasered the stone into small enough pieces evacuated out through the sheath of the resectoscope once a stone was completely treated and evacuated out then I switched over to the button I started laser vaporization of the prostate as this was going along I then switched over to the loop and continued with resection of the prostate to do a transurethral resection resected the right lobe of the prostate resect the left low the prostate and a small median lobe resected all the way down to the Lorena that a flow test and open flow the sphincter was intact verumontanum was spared inside the bladder and the left and right ureter orifice were identified on inspection he did have a very large bladder and very large bladder capacity with a large distended bladder. After the resection was completed took about an hour and a half to resect such a large prostate we all the chips were taken of the bladder I would put on continuous irrigation the urine was clear is taken back to PACU in good condition and tomorrow will get the catheter out. Type of Anesthesia:: General Drains: 3 way leal - Admit VTE Documentation VTE Present on Admission: No VTE Mechan Device Prophylaxis: SCD's
[2019-04-29 18:25] LABS: Bedside Glucose 184 mg/dL (70-110)
[2019-04-29] MEDS: 0.9% Normal Saline 1,000 ML 125 ML IV (19:29)
[2019-04-29] MEDS: Atorvastatin Calcium 40 MG Tablet PO (22:43)
[2019-04-29] MEDS: Docusate Sodium 100 MG Capsule PO (22:43)
[2019-04-29] MEDS: Ciprofloxacin 400 MG/200 ML BAG 200 MG IV (22:43)
[2019-04-30 04:42] VITALS: BP 178/86; PULSE 62; RESP 16; TEMP 36.7; O2SAT 97
[2019-04-30] MEDS: 0.9% Normal Saline 1,000 ML 125 ML IV (05:08)
[2019-04-30] MEDS: Levothyroxine 75 MCG Tablet PO (05:27)
[2019-04-30 05:52] LABS: Hematocrit 33.4 % (40-54); Hemoglobin 11.1 g/dL (13.0-16.5); Mean Corp Hgb Conc 33.2 g/dL (32-36); Mean Corpuscular Volume 90.3 fL (80-94); Mean Platelet Vol. 11.4 fl (6.2-12.0); Platelet Count 198 K/mm3 (150-450); RBC Distribution Width CV 13.1 % (11.6-14.6); RBC Distribution Width SD 42.8 fl (35.1-43.9); White Blood Count 7.5 K/mm3 (4.4-11.0)
[2019-04-30 06:14] LABS: Anion Gap 6 (5-15); BUN 19 mg/dL (7-18); BUN/Creat Ratio 14.3 RATIO (10-20); Calcium,Total 8.5 mg/dL (8.5-10.1); Chloride 107 mmol/L (98-107); Creatinine, Serum 1.33 mg/dL (0.70-1.30); EST Glomerular Filtration Rate 55 mL/min (>60); Est Glom Filt Rate - Afr Amer 66 mL/min (>60); Estimated Creatinine Clearance 40.71 ml/min; Glucose 211 mg/dL (74-106); Potassium 4.5 mmol/L (3.5-5.1); Sodium Level 138 mmol/L (136-145)
--- NOTE | 2019-04-30 07:23 | PCM.PROGNOTE ---
Subjective: 83-year-old male status post TURP and laser bladder stones doing well urine is clear - Physical Exam Vitals/I&O's: Vital Signs Temp Pulse Resp BP Pulse Ox 98.0 F 62 16 178/86 H 97 04/30/19 04:42 04/30/19 04:42 04/30/19 04:42 04/30/19 04:42 04/30/19 04:42 Oxygen Delivery Method Room Air Weight: 100.6 kg Body Mass Index (BMI) 33.7 Finger Stick Blood Glucose 184 Intake and Output for Last 24 Hours 04/28/19 04/29/19 04/30/19 23:59 23:59 23:59 Intake Total 1310 / 1510 2600 / 2600 Output Total 950 / 950 Balance 1310 / 1510 1650 / 1650 General: Alert, Oriented x3, Cooperative HEENT: Atraumatic, PERRLA, EOMI, Normocephalic Neck: Supple, No JVD, Negative Carotid Bruits Lungs: Clear to auscultation, Normal air movement Cardiovascular: Regular rate, No murmurs Abdomen: Bowel Sounds Present, Soft, Non Tender Extremities: No edema, Capillary Refill Less than 3 Seconds Skin: No rashes, No breakdown Musculoskeletal: No Tenderness to Palpation of Joints or Extremities Neurological: Cranial nerves II-XII grossly intact Psych/Mental Status: Normal Affect, Appropriate Laboratory Results 04/29/19 12:07: POC Glucose 260 H 04/29/19 13:27: POC Glucose 246 H 04/29/19 18:22: POC Glucose 184 H 04/30/19 05:25: WBC 7.5, RBC 3.70 L, Hgb 11.1 L, Hct 33.4 L, MCV 90.3, MCH 30.0, MCHC 33.2, RDW Std Deviation 42.8, RDW Coeff of Delvis 13.1, Plt Count 198, MPV 11.4 04/30/19 05:25: Sodium 138, Potassium 4.5, Chloride 107, Carbon Dioxide 25.0, Anion Gap 6, BUN 19 H, Creatinine 1.33 H, Estim Creat Clear Calc 40.71, Est GFR (MDRD) Af Amer 66, Est GFR (MDRD) Non-Af 55 L, BUN/Creatinine Ratio 14.3, Glucose 211 H, Calcium 8.5 Current Medications Acetaminophen (Tylenol) 325 mg PO Q4H PRN PRN PRN Reason: Pain Score 1-10/10 Al Hydroxide/Mg Hydroxide (Mylanta Ii) 30 ml PO Q4H PRN PRN PRN Reason: Heartburn Atorvastatin Calcium (Lipitor) 40 mg PO QHS [facility] Last Admin: 04/29/19 22:43 Dose: 40 mg Documented by: Belladonna Alkaloids/Opium (B & O) 60 mg RECTAL Q6H PRN PRN PRN Reason: Spasm Docusate Sodium (Colace) 100 mg PO BID [facility] Last Admin: 04/29/19 22:43 Dose: 100 mg Documented by: Lactated Ringer's () 1,000 mls @ 100 mls/hr IV .Q10H [facility] Last Infusion: 04/30/19 03:21 Dose: Infused Documented by: Sodium Chloride () 1,000 mls @ 125 mls/hr IV .Q8H [facility] Last Admin: 04/30/19 05:08 Dose: 125 mls/hr Documented by: Ciprofloxacin (Cipro) 400 mg in 200 mls @ 200 mls/hr IV Q12 [facility] Stop: 04/30/19 10:59 Last Infusion: 04/29/19 23:44 Dose: Infused Documented by: Sodium Chloride () 250 mls @ 15 mls/hr IV .[id number] PRN PRN Reason: Saline Flush Sodium Chloride () 250 mls @ 15 mls/hr IV .[id number] PRN PRN Reason: Additional IVPB Infusion Ibuprofen (Motrin) 600 mg PO Q6H PRN PRN PRN Reason: Pain Score 1-10/10 Levothyroxine Sodium (Synthroid) 75 mcg PO DAILY@0600 [facility] Last Admin: 04/30/19 05:27 Dose: 75 mcg Documented by: Lisinopril (Zestril) 10 mg PO DAILY [facility]) [facility] Ondansetron HCl (Zofran) 4 mg IV Q6H PRN PRN PRN Reason: Nausea Oxycodone HCl (Oxyir) 5 mg PO Q4H PRN PRN PRN Reason: Pain Score 1-10/10 Pantoprazole Sodium (Protonix) 40 mg PO DAILY [facility] Sodium Chloride () 10 - 40 ml IV UD PRN PRN Reason: SALINE FLUSH Tamsulosin HCl (Flomax) 0.4 mg PO DAILY [facility] Tolterodine Tartrate (Detrol La) 4 mg PO DAILY PRN PRN PRN Reason: Spasms Medical Necessity - Tobacco Use Smoking Status: Never smoker Tobacco Use: Non-smoker Assessment/Plan All Active Problems Bilateral lower leg cellulitis (Acute) Acute urinary retention (Acute) Acute kidney injury (Acute) Dehydration (Acute) Cellulitis (Acute) We will remove the catheter this morning he can go home after the catheter was removed.
[2019-04-30 08:09] VITALS: BP 172/91; PULSE 70; RESP 18; TEMP 36.7; O2SAT 98
[2019-04-30] MEDS: Docusate Sodium 100 MG Capsule PO (08:15)
[2019-04-30] MEDS: metFORMIN HCl 1,000 MG Tablet 1000 MG PO (08:15)
[2019-04-30] MEDS: Tamsulosin HCl 0.4 MG Capsule PO (08:15)
[2019-04-30] MEDS: Lisinopril 10 MG Tablet PO (08:15)
[2019-04-30] MEDS: Pantoprazole Sodium 40 MG Tablet PO (08:15)
[2019-04-30 09:11] VITALS: BP 172/91; PULSE 70; RESP 18; TEMP 36.7; O2SAT 98
== END 2019-04-30 09:11 | disposition home or self-care (01) ==
LOC: SDC 11:46 → AC 11:47 → MS2 04-30 09:49 → MS3 04-30 09:49
PROVIDERS: PCP Family Medicine Geriatric Medicine; Referring Provider Urology; Visit Provider Urology
PROC: (CPT 52318; principal; 2019-04-29 13:55)
DX: N21.0 Calculus in bladder (principal); N40.1 Benign prostatic hyperplasia with lower urinary tract symptoms; N13.8 Other obstructive and reflux uropathy; R33.8 Other retention of urine; R39.16 Straining to void; R31.9 Hematuria, unspecified; N17.9 Acute kidney failure, unspecified; E86.0 Dehydration; L03.116 Cellulitis of left lower limb; L03.115 Cellulitis of right lower limb; E11.9 Type 2 diabetes mellitus without complications; I10 Essential (primary) hypertension; E78.00 Pure hypercholesterolemia, unspecified; E03.9 Hypothyroidism, unspecified; Z79.899 Other long term (current) drug therapy; Z79.84 Long term (current) use of oral hypoglycemic drugs
CPT/HCPCS: 00914; 52318; 52601; 36415; 80048; 82962; 83036; 84443; 85027; 88305; 88309; 93005; J7030; J7120; A4216; J0744; J2405

== ENCOUNTER → 2019-05-06 15:54 | Outpatient (CLI) | payer MEDICARE, SELFPAY ==
[2019-04-29 19:01] VITALS: BMI 33.7
[2019-05-06 17:01] LABS: Anion Gap 7 (5-15); BUN 21 mg/dL (7-18); BUN/Creat Ratio 12.3 RATIO (10-20); Chloride 103 mmol/L (98-107); Creatinine, Serum 1.71 mg/dL (0.70-1.30); EST Glomerular Filtration Rate 41 mL/min (>60); Est Glom Filt Rate - Afr Amer 49 mL/min (>60); Glucose 273 mg/dL (74-106); Potassium 4.8 mmol/L (3.5-5.1); Sodium Level 135 mmol/L (136-145)
== END ==
PROVIDERS: PCP Family Medicine Geriatric Medicine; Visit Provider Family Medicine Geriatric Medicine
DX: N17.9 Acute kidney failure, unspecified (principal)
CPT/HCPCS: 36415; 80048

== ENCOUNTER → 2019-08-10 10:00 | Outpatient (CLI) | payer MEDICARE, SELFPAY ==
[2019-04-29 19:01] VITALS: BMI 33.7
[2019-08-10 12:26] LABS: Absolute Lymphocyte Count 1.02 X10^3/uL (0.83-4.51); Absolute Neutrophil Count 4.2 X10^3/uL (2.0-7.7); Basophil# 0.03 X10^3/uL; Basophil% 0.5 % (0-1); Eosinophil# 0.36 X10^3/uL; Eosinophils% 5.9 % (0-5); Hematocrit 36.8 % (40-54); Hemoglobin 11.6 g/dL (13.0-16.5); Lymphocyte # 1.02 X10^3/ul (4.0); Lymphocyte % 16.6 % (19-41); Mean Corp Hgb Conc 31.5 g/dL (32-36); Mean Corpuscular Hgb 29.1 pg (27.0-32.0); Mean Corpuscular Volume 92.2 fL (80-94); Mean Platelet Vol. 12.1 fl (6.2-12.0); Monocyte# 0.51 X10^3/uL; Monocyte% 8.3 % (0-10); NRBC Flagged by Analyzer 0 % (0-5); Neutrophil # 4.19 X10^3/uL (2.7-7.7); Neutrophil % 68.4 % (47-70); Platelet Count 228 K/mm3 (150-450); RBC Distribution Width CV 12.9 % (11.6-14.6); RBC Distribution Width SD 43.7 fl (35.1-43.9); Red Blood Count 3.99 M/mm3 (4.6-6.2); White Blood Count 6.1 K/mm3 (4.4-11.0)
[2019-08-10 12:33] LABS: Vitamin D,25 Hydroxy 33.9 ng/mL
[2019-08-10 12:50] LABS: AST(SGOT) 12 U/L (15-37); Alanine Aminotransfer ALT/SGPT 19 U/L (16-61); Albumin, Serum 3.7 g/dL (3.2-5.0); Alkaline Phosphatase 111 U/L (45-117); Anion Gap 9 (5-15); BUN 30 mg/dL (7-18); BUN/Creat Ratio 16.4 RATIO (10-20); Calcium,Total 9.2 mg/dL (8.5-10.1); Chloride 99 mmol/L (98-107); Creatinine, Serum 1.83 mg/dL (0.70-1.30); EST Glomerular Filtration Rate 38 mL/min (>60); Est Glom Filt Rate - Afr Amer 46 mL/min (>60); Globulin 3.7 g/dL (2.2-4.2); Glucose 245 mg/dL (74-106); Potassium 4.8 mmol/L (3.5-5.1); Protein, Total 7.4 g/dL (6.4-8.2); Sodium Level 133 mmol/L (136-145); Thyroid Stim Hormone (TSH) 4.24 uIU/mL (0.358-3.74)
== END ==
PROVIDERS: PCP Family Medicine Geriatric Medicine; Visit Provider Family Medicine Geriatric Medicine
DX: E11.9 Type 2 diabetes mellitus without complications (principal); E55.9 Vitamin D deficiency, unspecified; E23.6 Other disorders of pituitary gland; I10 Essential (primary) hypertension
CPT/HCPCS: 36415; 80053; 82306; 84403; 84443; 85025

== ENCOUNTER → 2019-10-06 09:49 | Outpatient (CLI) | payer MEDICARE, SELFPAY ==
[2019-04-29 19:01] VITALS: BMI 33.7
[2019-10-06 12:50] LABS: Thyroid Stim Hormone (TSH) 2.38 uIU/mL (0.358-3.74)
== END ==
PROVIDERS: PCP Family Medicine Geriatric Medicine; Visit Provider Family Medicine Geriatric Medicine
DX: E03.9 Hypothyroidism, unspecified (principal)
CPT/HCPCS: 36415; 84443

== ENCOUNTER → 2019-11-05 09:30 | Outpatient (CLI) | payer MEDICARE, SELFPAY ==
[2019-04-29 19:01] VITALS: BMI 33.7
[2019-11-05 12:17] LABS: Absolute Lymphocyte Count 1.56 X10^3/uL (0.83-4.51); Absolute Neutrophil Count 4.7 X10^3/uL (2.0-7.7); Basophil# 0.03 X10^3/uL; Basophil% 0.4 % (0-1); Eosinophil# 0.38 X10^3/uL; Eosinophils% 5.1 % (0-5); Hematocrit 37.5 % (40-54); Lymphocyte # 1.56 X10^3/ul (4.0); Lymphocyte % 21.1 % (19-41); Mean Corpuscular Hgb 30.1 pg (27.0-32.0); Mean Platelet Vol. 12.3 fl (6.2-12.0); Monocyte% 9.5 % (0-10); NRBC Flagged by Analyzer 0 % (0-5); Neutrophil # 4.71 X10^3/uL (2.7-7.7); Neutrophil % 63.6 % (47-70); Platelet Count 222 K/mm3 (150-450); RBC Distribution Width CV 13.4 % (11.6-14.6); RBC Distribution Width SD 45.9 fl (35.1-43.9); Red Blood Count 3.99 M/mm3 (4.6-6.2); White Blood Count 7.4 K/mm3 (4.4-11.0)
[2019-11-05 12:32] LABS: Vitamin D,25 Hydroxy 53.3 ng/mL
[2019-11-05 12:37] LABS: ALB/GLOB Ratio 1.1 RATIO (0.9-2.4); AST(SGOT) 17 U/L (15-37); Alanine Aminotransfer ALT/SGPT 20 U/L (16-61); Albumin, Serum 3.9 g/dL (3.2-5.0); Alkaline Phosphatase 91 U/L (45-117); Anion Gap 6 (5-15); BUN 38 mg/dL (7-18); BUN/Creat Ratio 19.5 RATIO (10-20); Calcium,Total 9.2 mg/dL (8.5-10.1); Chloride 103 mmol/L (98-107); Creatinine, Serum 1.95 mg/dL (0.70-1.30); EST Glomerular Filtration Rate 35 mL/min (>60); Est Glom Filt Rate - Afr Amer 42 mL/min (>60); Globulin 3.6 g/dL (2.2-4.2); Glucose 116 mg/dL (74-106); Potassium 4.7 mmol/L (3.5-5.1); Protein, Total 7.5 g/dL (6.4-8.2); Sodium Level 137 mmol/L (136-145); Thyroid Stim Hormone (TSH) 4.12 uIU/mL (0.358-3.74)
== END ==
PROVIDERS: PCP Family Medicine Geriatric Medicine; Visit Provider Family Medicine Geriatric Medicine
DX: E11.9 Type 2 diabetes mellitus without complications (principal); I10 Essential (primary) hypertension; E55.9 Vitamin D deficiency, unspecified; E23.6 Other disorders of pituitary gland
CPT/HCPCS: 36415; 80053; 82306; 84403; 84443; 85025

== ENCOUNTER → 2019-12-24 09:22 | Outpatient (CLI) | payer MEDICARE, SELFPAY ==
[2019-04-29 19:01] VITALS: BMI 33.7
[2019-12-24 13:07] LABS: Thyroid Stim Hormone (TSH) 2.37 uIU/mL (0.358-3.74)
== END ==
PROVIDERS: PCP Family Medicine Geriatric Medicine; Visit Provider Family Medicine Geriatric Medicine
DX: E03.9 Hypothyroidism, unspecified (principal)
CPT/HCPCS: 36415; 84443

== ENCOUNTER → 2020-02-03 09:21 | Outpatient (CLI) | payer MEDICARE, SELFPAY ==
[2019-04-29 19:01] VITALS: BMI 33.7
[2020-02-03 13:12] LABS: Absolute Lymphocyte Count 1.12 X10^3/uL (0.83-4.51); Absolute Neutrophil Count 4.2 X10^3/uL (2.0-7.7); Basophil# 0.02 X10^3/uL; Basophil% 0.3 % (0-1); Eosinophil# 0.33 X10^3/uL; Eosinophils% 5.3 % (0-5); Hematocrit 38.7 % (40-54); Hemoglobin 12.6 g/dL (13.0-16.5); Lymphocyte # 1.12 X10^3/ul (4.0); Lymphocyte % 17.9 % (19-41); Mean Corp Hgb Conc 32.6 g/dL (32-36); Mean Corpuscular Hgb 30.9 pg (27.0-32.0); Mean Corpuscular Volume 94.9 fL (80-94); Mean Platelet Vol. 12.3 fl (6.2-12.0); Monocyte% 9.6 % (0-10); NRBC Flagged by Analyzer 0 % (0-5); Neutrophil # 4.16 X10^3/uL (2.7-7.7); Neutrophil % 66.4 % (47-70); Platelet Count 197 K/mm3 (150-450); RBC Distribution Width SD 44.7 fl (35.1-43.9); Red Blood Count 4.08 M/mm3 (4.6-6.2); White Blood Count 6.3 K/mm3 (4.4-11.0)
[2020-02-03 13:44] LABS: ALB/GLOB Ratio 1.1 RATIO (0.9-2.4); AST(SGOT) 26 U/L (15-37); Alanine Aminotransfer ALT/SGPT 40 U/L (16-61); Albumin, Serum 3.8 g/dL (3.2-5.0); Alkaline Phosphatase 102 U/L (45-117); Anion Gap 6 (5-15); BUN 30 mg/dL (7-18); BUN/Creat Ratio 15.9 RATIO (10-20); Calcium,Total 8.9 mg/dL (8.5-10.1); Chloride 105 mmol/L (98-107); Creatinine, Serum 1.89 mg/dL (0.70-1.30); EST Glomerular Filtration Rate 36 mL/min (>60); Est Glom Filt Rate - Afr Amer 44 mL/min (>60); Globulin 3.4 g/dL (2.2-4.2); Glucose 116 mg/dL (74-106); Potassium 4.6 mmol/L (3.5-5.1); Protein, Total 7.2 g/dL (6.4-8.2); Sodium Level 138 mmol/L (136-145); Thyroid Stim Hormone (TSH) 3.26 uIU/mL (0.358-3.74)
[2020-02-05 14:55] LABS: Vitamin D,25 Hydroxy 39.3 ng/mL
== END ==
PROVIDERS: PCP Family Medicine Geriatric Medicine; Visit Provider Family Medicine Geriatric Medicine
DX: E11.9 Type 2 diabetes mellitus without complications (principal); I10 Essential (primary) hypertension; E23.6 Other disorders of pituitary gland; E55.9 Vitamin D deficiency, unspecified
CPT/HCPCS: 36415; 80053; 82306; 84403; 84443; 85025

== ENCOUNTER → 2020-05-04 09:22 | Outpatient (CLI) | payer MEDICARE, SELFPAY ==
[2019-04-29 19:01] VITALS: BMI 33.7
[2020-05-04 11:56] LABS: Absolute Lymphocyte Count 1.02 X10^3/uL (0.83-4.51); Absolute Neutrophil Count 4.3 X10^3/uL (2.0-7.7); Basophil# 0.01 X10^3/uL; Basophil% 0.2 % (0-1); Eosinophil# 0.23 X10^3/uL; Eosinophils% 3.8 % (0-5); Hematocrit 39.7 % (40-54); Hemoglobin 12.7 g/dL (13.0-16.5); Lymphocyte # 1.02 X10^3/ul (4.0); Lymphocyte % 16.7 % (19-41); Mean Corpuscular Hgb 30.3 pg (27.0-32.0); Mean Corpuscular Volume 94.7 fL (80-94); Mean Platelet Vol. 12.2 fl (6.2-12.0); Monocyte# 0.56 X10^3/uL; Monocyte% 9.2 % (0-10); NRBC Flagged by Analyzer 0 % (0-5); Neutrophil # 4.29 X10^3/uL (2.7-7.7); Neutrophil % 69.9 % (47-70); Platelet Count 174 K/mm3 (150-450); RBC Distribution Width CV 13.5 % (11.6-14.6); RBC Distribution Width SD 46.9 fl (35.1-43.9); Red Blood Count 4.19 M/mm3 (4.6-6.2); White Blood Count 6.1 K/mm3 (4.4-11.0)
[2020-05-04 12:28] LABS: Vitamin D,25 Hydroxy 43.6 ng/mL
[2020-05-04 12:33] LABS: Microalbumin:Creatinine Ratio 122.6 mg/g CRE (<30 mg/g CRE)
[2020-05-04 12:38] LABS: ALB/GLOB Ratio 1.2 RATIO (0.9-2.4); AST(SGOT) 25 U/L (15-37); Alanine Aminotransfer ALT/SGPT 30 U/L (16-61); Alkaline Phosphatase 90 U/L (45-117); Anion Gap 6 (5-15); BUN 34 mg/dL (7-18); Calcium,Total 9.4 mg/dL (8.5-10.1); Chloride 105 mmol/L (98-107); Creatinine, Serum 1.89 mg/dL (0.70-1.30); EST Glomerular Filtration Rate 36 mL/min (>60); Est Glom Filt Rate - Afr Amer 44 mL/min (>60); Globulin 3.4 g/dL (2.2-4.2); Glucose 101 mg/dL (74-106); Potassium 4.8 mmol/L (3.5-5.1); Protein, Total 7.4 g/dL (6.4-8.2); Sodium Level 137 mmol/L (136-145); Thyroid Stim Hormone (TSH) 2.94 uIU/mL (0.358-3.74)
== END ==
PROVIDERS: PCP Family Medicine Geriatric Medicine; Visit Provider Internal Medicine Nephrology
DX: E11.22 Type 2 diabetes mellitus with diabetic chronic kidney disease (principal); I12.9 Hypertensive chronic kidney disease with stage 1 through stage 4 chronic kidney disease, or unspecified chronic kidney disease; N18.9 Chronic kidney disease, unspecified; E23.6 Other disorders of pituitary gland; E55.9 Vitamin D deficiency, unspecified
CPT/HCPCS: 36415; 80053; 82043; 82306; 82570; 84403; 84443; 85025

== ENCOUNTER → 2020-05-06 12:31 | Outpatient (CLI) | payer MEDICARE, SELFPAY ==
[2019-04-29 19:01] VITALS: BMI 33.7
--- NOTE | 2020-05-06 12:33 | US_ITS ---
STUDY: RENAL ULTRASOUND - COMPLETE REASON FOR EXAM: Male, 84 years old. CKD3 TECHNIQUE: Ultrasound evaluation of the kidneys was performed with real-time and static gonzales-scale imaging. COMPARISON: None. FINDINGS: RIGHT KIDNEY: with mild renal atrophy. The right kidney measures 7.9 cm x 5 cm x 4.2 cm. There is a normal cortex of the right kidney. The renal cortex measures 1.2 cm. There is no right renal mass or cyst. There are no right renal calculi. There is no right hydronephrosis. DISTAL RIGHT URETER: There is non-visualization of the distal right ureter. There is no demonstrated right ureterovesical junction calculus. There is a visualized right ureteral jet. LEFT KIDNEY: Normal location of the left kidney, which is normal in size. The left kidney measures 8.9 cm x 5.3 cm x 5.2 cm. There is a normal cortex of the left kidney. The renal cortex measures 1.1 cm. There is no left renal mass or cyst. There are no left renal calculi. There is no left hydronephrosis. DISTAL LEFT URETER: There is non-visualization of the distal left ureter. There is no demonstrated left ureterovesical junction calculus. There is a visualized left ureteral jet. BLADDER: The distended urinary bladder has a volume of 2227 ml. The empty urinary bladder has a volume of 1763 ml. There is a normal wall thickness of the distended urinary bladder. There is no demonstrated mass within the urinary bladder. There are no demonstrated bladder calculi. US/Kidney and Bladder IMPRESSION: Mild atrophy of the right kidney. Large postvoid residual. Electronically Signed: Alex Rabago MD at 14:30 EST , Service support ,
--- NOTE | 2020-05-06 14:16 | NURSING ---
PER U/S TECH, ON POST VOID U/S [address] ALTMAN INFORMED VIA PHONE. ORDER GIVEN TO INSERT WEBSTER CATHETER AND SEND PATIENT HOME WITH LEG BAG. CATHETER INSERTED WITH MODERATE RESISTANCE. 1700 ML CLEAR YELLOW URINE DRAINED. LEG BAG ATTACHED. PT PROVIDED EDUCATION FOR HOME CARE OF CATHETER AND LEG BAG. PT AWARE, TO FOLLOW UP IN OFFICE SATURDAY WITH PCP, DR ARENAS, PER DR. ALTMAN.
== END ==
PROVIDERS: PCP Family Medicine Geriatric Medicine; Referring Provider Internal Medicine Nephrology; Visit Provider Internal Medicine Nephrology
DX: N18.32 Chronic kidney disease, stage 3b (principal)
CPT/HCPCS: 76770

== ENCOUNTER → 2020-08-10 10:49 | Outpatient (CLI) | payer MEDICARE, SELFPAY ==
[2019-04-29 19:01] VITALS: BMI 33.7
[2020-08-10 12:14] LABS: Absolute Neutrophil Count 4.8 X10^3/uL (2.0-7.7); Basophil# 0.01 X10^3/uL; Basophil% 0.2 % (0-1); Eosinophil# 0.11 X10^3/uL; Eosinophils% 1.7 % (0-5); Hemoglobin 11.7 g/dL (13.0-16.5); Lymphocyte % 13.9 % (19-41); Mean Corp Hgb Conc 32.5 g/dL (32-36); Mean Corpuscular Hgb 30.7 pg (27.0-32.0); Mean Corpuscular Volume 94.5 fL (80-94); Mean Platelet Vol. 11.9 fl (6.2-12.0); Monocyte# 0.58 X10^3/uL; NRBC Flagged by Analyzer 0 % (0-5); Neutrophil # 4.82 X10^3/uL (2.7-7.7); Neutrophil % 74.4 % (47-70); Platelet Count 191 K/mm3 (150-450); RBC Distribution Width CV 13.3 % (11.6-14.6); RBC Distribution Width SD 46.5 fl (35.1-43.9); Red Blood Count 3.81 M/mm3 (4.6-6.2); White Blood Count 6.5 K/mm3 (4.4-11.0)
[2020-08-10 12:43] LABS: AST(SGOT) 21 U/L (15-37); Alanine Aminotransfer ALT/SGPT 27 U/L (16-61); Albumin, Serum 3.6 g/dL (3.2-5.0); Alkaline Phosphatase 91 U/L (45-117); Anion Gap 6 (5-15); BUN 27 mg/dL (7-18); BUN/Creat Ratio 14.9 RATIO (10-20); Calcium,Total 8.7 mg/dL (8.5-10.1); Chloride 106 mmol/L (98-107); Creatinine, Serum 1.81 mg/dL (0.70-1.30); EST Glomerular Filtration Rate 38 mL/min (>60); Est Glom Filt Rate - Afr Amer 46 mL/min (>60); Globulin 3.5 g/dL (2.2-4.2); Glucose 84 mg/dL (74-106); Potassium 4.3 mmol/L (3.5-5.1); Protein, Total 7.1 g/dL (6.4-8.2); Sodium Level 139 mmol/L (136-145); Thyroid Stim Hormone (TSH) 2.92 uIU/mL (0.358-3.74)
== END ==
PROVIDERS: PCP Family Medicine Geriatric Medicine; Visit Provider Family Medicine Geriatric Medicine
DX: E11.9 Type 2 diabetes mellitus without complications (principal); I10 Essential (primary) hypertension; E23.6 Other disorders of pituitary gland; E55.9 Vitamin D deficiency, unspecified
CPT/HCPCS: 36415; 80053; 82306; 84403; 84443; 85025

== ENCOUNTER → 2021-02-09 10:49 | Outpatient (CLI) | payer MEDICARE, SELFPAY ==
[2021-02-09 12:37] LABS: Absolute Lymphocyte Count 0.99 X10^3/uL (0.83-4.51); Absolute Neutrophil Count 5.6 X10^3/uL (2.0-7.7); Basophil# 0.02 X10^3/uL; Basophil% 0.3 % (0-1); Eosinophil# 0.17 X10^3/uL; Eosinophils% 2.3 % (0-5); Hematocrit 34.9 % (40-54); Hemoglobin 11.3 g/dL (13.0-16.5); Lymphocyte # 0.99 X10^3/ul (0.83-4.51); Lymphocyte % 13.3 % (19-41); Mean Corp Hgb Conc 32.4 g/dL (32-36); Mean Corpuscular Hgb 30.4 pg (27.0-32.0); Mean Corpuscular Volume 93.8 fL (80-94); Mean Platelet Vol. 11.9 fl (6.2-12.0); Monocyte# 0.71 X10^3/uL; Monocyte% 9.5 % (0-10); NRBC Flagged by Analyzer 0 % (0-5); Neutrophil # 5.55 X10^3/uL (2.7-7.7); Neutrophil % 74.3 % (47-70); Platelet Count 204 K/mm3 (150-450); RBC Distribution Width CV 13.2 % (11.6-14.6); RBC Distribution Width SD 45.5 fl (35.1-43.9); Red Blood Count 3.72 M/mm3 (4.6-6.2); White Blood Count 7.5 K/mm3 (4.4-11.0)
[2021-02-09 13:00] LABS: Vitamin D,25 Hydroxy 33.5 ng/mL
[2021-02-09 13:01] LABS: ALB/GLOB Ratio 0.9 RATIO (0.9-2.4); AST(SGOT) 17 U/L (15-37); Alanine Aminotransfer ALT/SGPT 24 U/L (16-61); Albumin, Serum 3.3 g/dL (3.2-5.0); Alkaline Phosphatase 103 U/L (45-117); Anion Gap 6 (5-15); BUN 35 mg/dL (7-18); BUN/Creat Ratio 19.9 RATIO (10-20); Calcium,Total 8.8 mg/dL (8.5-10.1); Chloride 105 mmol/L (98-107); Creatinine, Serum 1.76 mg/dL (0.70-1.30); EST Glomerular Filtration Rate 39 mL/min (>60); Est Glom Filt Rate - Afr Amer 48 mL/min (>60); Globulin 3.6 g/dL (2.2-4.2); Glucose 140 mg/dL (74-106); Potassium 4.3 mmol/L (3.5-5.1); Protein, Total 6.9 g/dL (6.4-8.2); Sodium Level 137 mmol/L (136-145)
== END ==
PROVIDERS: PCP Family Medicine Geriatric Medicine; Visit Provider Family Medicine Geriatric Medicine
DX: E11.9 Type 2 diabetes mellitus without complications (principal); E55.9 Vitamin D deficiency, unspecified; E23.6 Other disorders of pituitary gland; I10 Essential (primary) hypertension
CPT/HCPCS: 36415; 80053; 82306; 84403; 84443; 85025

== ENCOUNTER 2021-03-15 10:36 | Inpatient (IN) | payer MEDICARE, SELFPAY ==
[2021-03-15] VITALS (7 sets, daily range): BP systolic 138–188; BP diastolic 60–88; PULSE 48–63; RESP 15–18; TEMP 36.6–36.9; O2SAT 94–100; BMI 33.5; BMI 33.3
--- NOTE | 2021-03-15 10:38 | EKG12_ITS ---
Test Reason : STROKE TEAM Blood Pressure : / mmHG Vent. Rate : 065 BPM Atrial Rate : 053 BPM P-R Int : 000 ms QRS Dur : 114 ms QT Int : 408 ms P-R-T Axes : 000 -40 071 degrees QTc Int : 424 ms Atrial fibrillation Left axis deviation Septal infarct , age undetermined Abnormal ECG Confirmed by CARMINE THAO, MIYA ([id number]), news videotape editor QUIQUE HELM ([id number]) on 03/22/2021 10:43:46 AM Referred By: AYLIN Confirmed By:MIYA LOU MD
--- NOTE | 2021-03-15 10:38 | NURSING ---
STROKE ALERT CALLED 1027 ETA 5 MIN
--- NOTE | 2021-03-15 10:39 | ED.VIS.STROK ---
HPI History of Present Illness Chief Complaint: Alt LOC Detail of Chief Complaint: Mental status change with concern for stroke Informant: patient and EMS Narrative Narrative: Patient presents to the emergency department via EMS for concern for stroke. Patient's son called the patient this morning and was slurring his speech so called EMS. Patient apparently fell last evening. It is unclear if the patient's son spoke with the patient just the 1 time this morning or if he spoke with him a second time and he was abnormal during the second conversation. Symptom onset is unclear. EMS noted that patient had a low blood sugar and it was 51. Patient is a diabetic. EMS did give glucose 12.5 g IV and apparently his mentation and slurred speech has improved significantly since that time. Patient states he has chronic weakness in his right arm and right leg for over a year. Patient denies prior stroke. Son is not here at this time but is on his way to the hospital. Prior similar symptoms: No PFSH [facility] Medical History (Updated 03/15/21 @ 13:[address] Manohar De Souza, ) High blood cholesterol Hypertension Hypothyroid Home Medications atorvastatin 40 mg PO QHS 03/10/19 [History Last Taken 03/09/19] levothyroxine 75 mcg PO DAILY 03/10/19 [History Last Taken 04/29/19 10:00] lisinopril 10 mg PO DAILY 03/10/19 [History Last Taken 04/29/19 10:00] metformin 1,000 mg PO BID 03/10/19 [History Last Taken 03/10/19] tamsulosin 0.4 mg PO DAILY 04/22/19 [History Last Taken Unknown] Allergy/AdvReac Type Severity Reaction Status Date / Time No Known Allergies Allergy Verified 03/15/21 11:00 Social History Smoking Status: Never smoker ROS ROS ED ROS Narrative Confusion and slurred speech Constitutional Constitutional ED: Reports systems reviewed and no addt'l complaints, except as documented; Denies body ache(s), change in weight or chills Eyes Eyes: Denies acute decrease in peripheral vision, change in vision, double vision or loss of vision ENT ENT ED: Reports none; Denies ear pain, lip swelling, loss taste/smell, neck pain, otalgia or sore throat Cardiovascular Cardiovascular: Reports none; Denies abdominal pain, chest pain with activity, leg edema, lightheadedness, palpitations, rapid heart rate or syncope Respiratory/Chest Respiratory/Chest: Reports none; Denies change in mental status, dry cough, dyspnea, hemoptysis, shortness of breath at rest or shortness of breath with exertion Gastrointestinal Gastrointestinal: Reports none; Denies abdominal pain, change in stool character, diarrhea, hematemesis, hematochezia, melena, rectal bleeding or vomiting Genitourinary Genitourinary ED: Reports none; Denies abdominal discomfort, anuria, dysuria, genital pain or polyuria Musculoskeletal Musculoskeletal: Reports none; Denies arthralgias, back pain, difficulty walking, extremity pain, muscle weakness or myalgias Integumentary Reports none; Denies abscess or rash Neurologic Neurologic: Reports none; Denies abnormal gait, confusion, focal weakness, frequent falls, headache(s), loss of vision, numbness, paresthesias, radicular pain, vertigo or weakness Psychiatric Psychiatric: Reports systems reviewed and no addt'l complaints, except as documented and none; Denies behavioral changes, confusion, difficulty concentrating, hallucinations, suicidal ideation, tactile hallucinations or visual hallucinations Endocrine Endocrinology: Denies none, cold intolerance, excessive sweating, fatigue or heat intolerance Hematologic/Lymphatic Hematologic/Lymphatic: Reports none; Denies anemia, easy bleeding or easy bruising Allergic/Immunologic Allergic/Immunologic ED: Denies as per HPI, none, lip swelling, mouth swelling, throat swelling, tongue swelling or hives EXAM Physical Exam Const Vital Signs: 03/15/21 10:51 03/15/21 12:42 Temperature 97.8 F Temperature Source Temporal Pulse Rate 61 61 Respiratory Rate 16 15 Blood Pressure 188/77 H 156/76 H Blood Pressure Mean 114 102 Pulse Ox 99 96 Oxygen Delivery Method Room Air Room Air Oxygen Flow Rate (L/min) 2 Positive well nourished and well developed General Appearance ED: well developed and NAD HEENT Reports TM's clear and moist mucous membranes normocephalic and atraumatic; Negative for trauma or tenderness Tympanic Membrane ED: Yes TM's clear Eyes PERRL and EOMs intact bilaterally General Eye ED: Negative for pale conjunctiva or scleral icterus Neck no lymphadenopathy, supple and no JVD General: Negative for tenderness Chest Wall inspection of chest normal and palpation of chest normal Chest: Negative for tenderness Resp normal respiratory effort and clear to auscultation bilaterally Effort and Inspection: Negative for respiratory distress or pain with movement Auscultation: Negative for rhonchi, wheezes or diminished lung sounds Cardio regular rate, regular rhythm, S1 normal heart sound, S2 normal heart sound and no murmurs Peripheral Pulses: pulses 2+ throughout GI normal to inspection, nondistended, normoactive bowel sounds, soft to palpation, non-tender, non-distended and no masses Back/Spine no CVA tenderness and no thoracic nor lumbar tenderness Extremity normal to inspection General Extremety ED: Negative for edema General Extremity: Negative for edema Neuro oriented x3, CN's II-XII intact bilaterally, no sensory deficits noted and gait normal Neuro Narrative: I do not appreciate a any facial droop on exam. Speech is slightly garbled. Right leg is weak compared to the left and he is having hard time lifting it off the bed. He does have movement in it. I gave him an NIH stroke scale of 4 however its unclear if these findings are new as patient does claim he has had weakness on the right side for over a year. Sensorium / Orientation: awake, alert, oriented to person, oriented to place and oriented to time Motor Exam: strength 5/5 throughout and strength abnormal Psych mental status grossly normal Skin no rashes or lesions noted and no wounds STROKE Vital Signs/Narrative: Vital Signs Temp Pulse Resp BP Pulse Ox 03/15/21 12:42 61 15 156/76 H 96 03/15/21 10:51 97.8 F 61 16 188/77 H 99 MDM MDM MDM Narrative Medical decision making narrative: Patient's mental status cleared after administration of glucose and he is back to his baseline. At this point the time of his symptoms is unclear and I do not feel he is a TPA candidate. Patient noted to have COVID-19. I suspect the weakness may be related to the COVID-19. Case will be discussed with hospitalist evaluate patient for admission for mental status change, hypoglycemia, and COVID-19. Initial EKG appeared to show A. fib but baseline was not clear therefore will repeat as he does not have a history of A. fib. Lab Data Attestation: I reviewed the patient's lab results. Labs: Laboratory Results - last 24 hr 03/15/21 03/15/21 03/15/21 10:39 11:10 11:10 WBC 5.5 RBC 3.62 L Hgb 11.1 L Hct 32.8 L MCV 90.6 MCH 30.7 MCHC 33.8 RDW Std Deviation 43.4 RDW Coeff of Delvis 13.1 Plt Count 175 MPV 11.1 Immature Gran % (Auto) 0.400 Neut % (Auto) 80.3 H Lymph % (Auto) 9.6 L [place] % (Auto) 9.0 Eos % (Auto) 0.5 Baso % (Auto) 0.2 Absolute Neuts (auto) 4.4 Absolute Lymphs (auto) 0.53 L Nucleated RBC % 0 Differential Comment COMMENT PT 13.1 INR 1.1 APTT 31.7 Sodium Potassium Chloride Carbon Dioxide Anion Gap BUN Creatinine Estim Creat Clear Calc Est GFR (MDRD) Af Amer Est GFR (MDRD) Non-Af BUN/Creatinine Ratio Glucose Calcium Troponin I High Sens POC Glucose 72 03/15/21 03/15/21 03/15/21 11:10 11:40 13:01 WBC RBC Hgb Hct MCV MCH MCHC RDW Std Deviation RDW Coeff of Delvis Plt Count MPV Immature Gran % (Auto) Neut % (Auto) Lymph % (Auto) [place] % (Auto) Eos % (Auto) Baso % (Auto) Absolute Neuts (auto) Absolute Lymphs (auto) Nucleated RBC % Differential Comment PT INR APTT Sodium 140 Potassium 4.0 Chloride 107 Carbon Dioxide 27.0 Anion Gap 6 BUN 30 H Creatinine 1.70 H Estim Creat Clear Calc 33.84 Est GFR (MDRD) Af Amer 50 L Est GFR (MDRD) Non-Af 41 L BUN/Creatinine Ratio 17.6 Glucose 133 H Calcium 9.0 Troponin I High Sens 58 POC Glucose 97 126 H Radiography Diagnostic Testing: Clinical Impression(s) from Imaging Studies Brain CT 03/15/21 10:50 IMPRESSION: Chronic involutional changes of the brain. N.B. : The above Results were Read Back by Alex Rabago MD to Dr Shaggy DO, and understanding confirmed on 03/15/2021 11:01:01 (ET). Electronically Signed: Alex Rabago MD at 11:02 EST , Service support , ADDENDUM: 03/15/21 1109 IMPRESSION: Chronic involutional changes of the brain. N.B. : The above Results were Read Back by Alex Rabago MD to Dr Shaggy DO, and understanding confirmed on 03/15/2021 11:01:01 (ET). Electronically Signed: Alex Rabago MD at 11:02 EST , Service support , Chest X-Ray 03/15/21 11:20 IMPRESSION: Borderline cardiomegaly. Electronically Signed: Alex Rabago MD at 11:59 EST , Service support , 1 view chest clear obtained interpreted by myself as no acute disease process. Radiology felt patient had borderline cardiomegaly. EKG Initial EKG: Attestation: I personally reviewed and interpreted this EKG as follows: Comments: Atrial fibrillation with a rate of 65 bpm with old septal infarct Discharge Plan Triage Chief Complaint: Alt LOC ED Provider: Manohar De Souza Dx/Rx/DC Orders Clinical Impression: Acute alteration in mental status, Hypoglycemia, Generalized muscle weakness, COVID-19 Prescriptions: No Action atorvastatin 40 MG tablet 40 mg PO QHS RF: 0 levothyroxine 75 MCG tablet 75 mcg PO DAILY RF: 0 metformin 1,000 MG tablet 1,000 mg PO BID RF: 0 lisinopril 10 MG tablet 10 mg PO DAILY RF: 0 tamsulosin 0.4 MG capsule 0.4 mg PO DAILY RF: 0 Primary Care Provider: Cameron Perez Chi Referrals: Cameron Perez Chi, MD [Primary Care Provider] - Disposition Disposition: Acute Care Hospital [facility]
--- NOTE | 2021-03-15 10:50 | CT_ITS ---
STUDY: CT HEAD STROKE PROTOCOL W/O CONTRAST INJECTION REASON FOR EXAM: Male, 85 years old. Neuro deficit, acute, stroke suspected RADIATION DOSAGE (If Supplied By Facility): CTDIvol = ( 44.99 ) mGy, DLP = ( 829.85 ) mGycm TECHNIQUE: Transaxial CT imaging of the brain was performed without administration of intravenous contrast material. Individualized dose optimization techniques were used for this CT. COMPARISON: No relevant priors. FINDINGS: Normal soft tissue structures. Normal calvarium. There is moderate cerebral atrophy with widening of the extra-axial spaces and ventricular dilatation. There are areas of decreased attenuation within the white matter tracts of the supratentorial brain, consistent with microvascular disease changes. Normal basal ganglia and thalami. Normal brainstem. Normal cerebellum. There is no intracranial hemorrhage. There are no findings of an acute ischemic infarction. Minimal mucosal thickening of the right maxillary sinus. CT/STROKE Brain/Head without Cont IMPRESSION: Chronic involutional changes of the brain. N.B. : The above Results were Read Back by Alex Rabago MD to Dr Shaggy DO, and understanding confirmed on 03/15/2021 11:01:01 (ET). Electronically Signed: Alex Rabago MD at 11:02 EST , Service support ,
[2021-03-15 11:20] LABS: Absolute Lymphocyte Count 0.53 X10^3/uL (0.83-4.51); Absolute Neutrophil Count 4.4 X10^3/uL (2.0-7.7); Basophil# 0.01 X10^3/uL; Basophil% 0.2 % (0-1); Eosinophil# 0.03 X10^3/uL; Eosinophils% 0.5 % (0-5); Hematocrit 32.8 % (40-54); Hemoglobin 11.1 g/dL (13.0-16.5); Lymphocyte # 0.53 X10^3/ul (0.83-4.51); Lymphocyte % 9.6 % (19-41); Mean Corp Hgb Conc 33.8 g/dL (32-36); Mean Corpuscular Hgb 30.7 pg (27.0-32.0); Mean Corpuscular Volume 90.6 fL (80-94); Mean Platelet Vol. 11.1 fl (6.2-12.0); NRBC Flagged by Analyzer 0 % (0-5); Neutrophil # 4.44 X10^3/uL (2.7-7.7); Neutrophil % 80.3 % (47-70); POSITIVE DIFFERENTIAL YES; Platelet Count 175 K/mm3 (150-450); RBC Distribution Width CV 13.1 % (11.6-14.6); RBC Distribution Width SD 43.4 fl (35.1-43.9); Red Blood Count 3.62 M/mm3 (4.6-6.2); White Blood Count 5.5 K/mm3 (4.4-11.0)
--- NOTE | 2021-03-15 11:20 | RAD_ITS ---
STUDY: X-RAY CHEST REASON FOR EXAM: Male, 85 years old. Neuro deficit, acute, stroke suspected TECHNIQUE: Single AP portable view of the chest. COMPARISON: None. FINDINGS: EKG electrodes are seen. The lungs are clear and expanded. There is no demonstrated pleural abnormality. There is borderline cardiomegaly. Normal mediastinum and james. Normal visualized pulmonary arteries. Normal visualized aortic arch and descending thoracic aorta. There are diffuse degenerative changes of the visualized thoracic spine. There is degenerative osteoarthritis of the bilateral shoulders. There is no demonstrated abnormality of the visualized soft tissue structures of the upper abdomen. RAD/Chest 1 View IMPRESSION: Borderline cardiomegaly. Electronically Signed: Alex Rabago MD at 11:59 EST , Service support ,
[2021-03-15 11:23] LABS: Differential Indicated SCAN CRITERIA MET
[2021-03-15 11:27] LABS: International Normalized Ratio 1.1; Prothrombin Time (Protime)PT. 13.1 SECONDS (11.7-14.9)
[2021-03-15 11:28] LABS: Partial Thromboplast Time 31.7 Seconds (24.1-36.2)
[2021-03-15 11:36] LABS: Anion Gap 6 (5-15); BUN 30 mg/dL (7-18); BUN/Creat Ratio 17.6 RATIO (10-20); Chloride 107 mmol/L (98-107); EST Glomerular Filtration Rate 41 mL/min (>60); Est Glom Filt Rate - Afr Amer 50 mL/min (>60); Estimated Creatinine Clearance 33.84 ml/min; Glucose 133 mg/dL (74-106); Sodium Level 140 mmol/L (136-145); Troponin-I HS 58 pg/mL (3.0-78.0)
[2021-03-15 11:45] LABS: Bedside Glucose 97 mg/dL (70-110)
[2021-03-15 11:45] LABS: Bedside Glucose 72 mg/dL (70-110)
[2021-03-15 13:05] LABS: Bedside Glucose 126 mg/dL (70-110)
--- NOTE | 2021-03-15 13:10 | EKG12_ITS ---
Test Reason : REPEAT Blood Pressure : / mmHG Vent. Rate : 067 BPM Atrial Rate : 067 BPM P-R Int : 322 ms QRS Dur : 104 ms QT Int : 394 ms P-R-T Axes : 043 -43 072 degrees QTc Int : 416 ms Sinus rhythm with marked sinus arrhythmia with 1st degree A-V block Left axis deviation Septal infarct , age undetermined Abnormal ECG Confirmed by MIYA LOU MD ([id number]), food editor RENETTA MITCHELL ([id number]) on 03/17/2021 10:04:18 AM Referred By: FORD Confirmed By:MIYA LOU MD
[2021-03-15 14:15] LABS: Bedside Glucose 158 mg/dL (70-110)
--- NOTE | 2021-03-15 16:22 | PCM.HP.STD ---
HPI - General General Date of Admission: 03/15/21 HPI Narrative WESTON WORTHY, is a 85 M who presents from home with concerns of a stroke. He is to that this morning he woke up and was very tired and that he could tell that his speech was garbled. He spoke to his son on the phone also felt that he was slurring his speech and therefore they requested he come into the hospital by squad. 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 And so because of that he was given an NIH of 4. After the NIH is were completed glucose was obtained which was 51 and a soon as this was replaced his NIH is resolved. He is now scored at a 2 secondary to his chronic right-sided weakness which has been going on for several years but really worsened within the last year. He is able to lift his arm and sustained it there but not to a 45 degree angle because of pain in the same is also true for his like. Of note he started having a cough and feeling fatigued for the last 10 to 12days, he is vaccinated and booster against Covid however he did test positive for Covid here and he states that he has not been eating or drinking very well for about the last week but has continued to take the case and which include glimepiride, insulin, Actos. [facility] Medical History (Updated 03/15/21 @ 13:[address] Manohar De Souza, ) High blood cholesterol Hypertension Hypothyroid Home Medications atorvastatin 40 mg PO QHS 03/10/19 [History Last Taken 03/09/19] levothyroxine 75 mcg PO DAILY 03/10/19 [History Last Taken 04/29/19 10:00] lisinopril 10 mg PO DAILY 03/10/19 [History Last Taken 04/29/19 10:00] glimepiride 4 mg PO BID 03/15/21 [History Last Taken Unknown] insulin glargine U-300 conc [Toujeo SoloStar U-300 Insulin] 20 unit SUBCUT QHS 03/15/21 [History Last Taken Unknown] pioglitazone 30 mg PO DAILY 03/15/21 [History Last Taken Unknown] Allergy/AdvReac Type Severity Reaction Status Date / Time No Known Allergies Allergy Verified 03/15/21 11:00 Family History (Updated 03/15/21 @ 16:[address] Jimenez Fernandes MD) Other Diabetes Surgical History (Updated 03/15/21 @ 16:[address] Jimenez Fernandes MD) Status post laser lithotripsy of ureteral calculus Status post tonsillectomy Social History Smoking Status: Never smoker ROS Constitutional Constitutional: Reports fatigue; Denies chills, fever(s) or malaise Eyes Eyes: Denies blurry vision ENT HEENT: Denies headache(s) or nasal discharge Cardiovascular Cardiovascular: Denies chest pain, dyspnea on exertion or syncope Respiratory/Chest Respiratory/Chest: Reports cough; Denies shortness of breath at rest or shortness of breath with exertion Gastrointestinal Gastrointestinal: Denies constipation, diarrhea, nausea or vomiting Genitourinary Genitourinary: Denies dysuria Neurologic Neurologic: Reports abnormal speech; Denies focal weakness, numbness or tremor(s) Psychiatric Psychiatric: Denies anxiety or depression Vital Signs Vital Signs Vital Signs: 03/15/21 10:51 03/15/21 12:42 03/15/21 14:02 Temperature 97.8 F 97.8 F Temperature Source Temporal Temporal Pulse Rate 61 61 48 L Respiratory Rate 16 15 16 Respiratory Effort Respiratory Depth Respiratory Pattern Blood Pressure 188/77 H 156/76 H 138/88 H Blood Pressure Mean 114 102 104 Blood Pressure Source Monitor Blood Pressure Position Semi-Fowlers Blood Pressure Location Left Arm Pulse Ox 99 96 94 Oxygen Delivery Method Room Air Room Air Nasal Cannula Oxygen Flow Rate (L/min) 2 2 03/15/21 15:02 03/15/21 15:16 03/15/21 15:32 Temperature Temperature Source Pulse Rate 63 Respiratory Rate Respiratory Effort Normal Non-Labored Respiratory Depth Normal Respiratory Pattern Normal Blood Pressure Blood Pressure Mean Blood Pressure Source Blood Pressure Position Blood Pressure Location Pulse Ox 94 Oxygen Delivery Method Nasal Cannula Nasal Cannula Oxygen Flow Rate (L/min) 2 2 Weight Weight: 238 lb 1.588 oz Body Mass Index (BMI) 33.3 Physical Exam Const alert, oriented x3 and no apparent distress General Appearance: cooperative HEENT normocephalic Mouth: dry mucous membranes Eyes PERRL, EOMs intact bilaterally and conjunctivae normal Neck supple and no JVD Resp normal respiratory effort, no retractions, no use of accessory muscles and clear to auscultation bilaterally Auscultation: Negative for crackles, rales, rhonchi or wheezes Cardio regular rate, regular rhythm, S1 normal heart sound, S2 normal heart sound and no murmurs GI soft to palpation, non-tender and non-distended; Negative for hepatosplenomegaly Extremity no clubbing, cyanosis or edema Skin Skin Narrative: He does have a right lower extremity lesion secondary to a fall Neuro CN's II-XII intact bilaterally, moves all extremities, no focal motor deficits and no sensory deficits noted Psych affect normal Appearance: appropriate Results Lab / Micro Data Result Diagrams: 03/15/21 11:10 03/15/21 11:10 Labs: Laboratory Results - last 24 hr 03/15/21 10:39: POC Glucose 72 03/15/21 11:10: WBC 5.5, RBC 3.62 L, Hgb 11.1 L, Hct 32.8 L, MCV 90.6, MCH 30.7, MCHC 33.8, RDW Std Deviation 43.4, RDW Coeff of Delvis 13.1, Plt Count 175, MPV 11.1, Immature Gran % (Auto) 0.400, Neut % (Auto) 80.3 H, Lymph % (Auto) 9.6 L, [place] % (Auto) 9.0, Eos % (Auto) 0.5, Baso % (Auto) 0.2, Absolute Neuts (auto) 4.4, Absolute Lymphs (auto) 0.53 L, Nucleated RBC % 0, Differential Comment COMMENT 03/15/21 11:10: PT 13.1, INR 1.1, APTT 31.7 03/15/21 11:10: Sodium 140, Potassium 4.0, Chloride 107, Carbon Dioxide 27.0, Anion Gap 6, BUN 30 H, Creatinine 1.70 H, Estim Creat Clear Calc 33.84, Est GFR (MDRD) Af Amer 50 L, Est GFR (MDRD) Non-Af 41 L, BUN/Creatinine Ratio 17.6, Glucose 133 H, Calcium 9.0, Troponin I High Sens 58 03/15/21 11:40: POC Glucose 97 03/15/21 13:01: POC Glucose 126 H 03/15/21 14:08: POC Glucose 158 H Micro: Microbiology 03/15/21 11:10 Nasal Secretion SARS-CoV-2 Antigen (Rapid) - Final SARS-CoV-2 (COVID 19) Radiology Impression Brain CT 03/15/21 10:50 IMPRESSION: Chronic involutional changes of the brain. N.B. : The above Results were Read Back by Alex Rabago MD to Dr Shaggy DO, and understanding confirmed on 03/15/2021 11:01:01 (ET). Electronically Signed: Alex Rabago MD at 11:02 EST , Service support , ADDENDUM: 03/15/21 1109 IMPRESSION: Chronic involutional changes of the brain. N.B. : The above Results were Read Back by Alex Rabago MD to Dr Shaggy DO, and understanding confirmed on 03/15/2021 11:01:01 (ET). Electronically Signed: Alex Rabago MD at 11:02 EST , Service support , Chest X-Ray 03/15/21 11:20 IMPRESSION: Borderline cardiomegaly. Electronically Signed: Alex Rabago MD at 11:59 EST , Service support , Assessment & Plan Assessment/Plan (1) Acute alteration in mental status: (2) Hypoglycemia: (3) COVID-19: PLAN: 1. Fatigue and poor p.o. intake due to COVID-19 leading to hypoglycemia and strokelike symptoms/DM 2 ?His Covid is fairly asymptomatic other than the general fatigue, he is periodically needing oxygen we will continue to evaluate, he is outside of the window for remdesivir however still remains on oxygen in the morning can initiate Decadron therapy ?There is been complete resolution of his strokelike symptoms with replenishment of his blood sugar therefore we will continue to monitor but not pursue any MRI or echo unless NIH is worsen ?NIH is every 4 for 24 hours ?We will hold all of his home blood sugar medication, will place him on Accu-Cheks AC at bedtime as well sliding scale insulin, will make adjustments as necessary and will provide education that if he is not eating or drinking well that he should not be taking his diabetic medications and should just be monitoring his blood sugar 2. HTN/HLD ?Blood pressures are stable Continue with lisinopril and Lipitor 3. Hypothyroidism ?Stable ?Continue with Synthroid DVT: Lovenox Charges/Coding Visit Charges OBSV E&M: 28014 Initial observation care L3
[2021-03-15] MEDS: Glucerna Shake 120 ML LIQUID PO (16:28)
[2021-03-15 17:10] LABS: Bedside Glucose 136 mg/dL (70-110)
--- NOTE | 2021-03-15 17:20 | PCS.PANDOC ---
PANDEMIC DOCUMENTATION INITIATED: Date: 03/15/20 Time: 1500
--- NOTE | 2021-03-15 17:27 | NURSING ---
update given to emmanuel Thompson at this time
--- NOTE | 2021-03-15 20:09 | NURSING ---
pt straight cathed at this time with 1100ml urine return
[2021-03-15] MEDS: Acetaminophen 325 MG Tablet 650 MG PO (21:14)
[2021-03-15] MEDS: Atorvastatin Calcium 40 MG Tablet PO (21:14)
[2021-03-15 22:25] LABS: Bedside Glucose 122 mg/dL (70-110)
[2021-03-16] VITALS (11 sets, daily range): BP systolic 130–157; BP diastolic 48–71; PULSE 42–69; RESP 16–18; TEMP 36.3–37; O2SAT 95–97
--- NOTE | 2021-03-16 00:59 | EKG12_ITS ---
Test Reason : REPEAT Blood Pressure : / mmHG Vent. Rate : 068 BPM Atrial Rate : 079 BPM P-R Int : 348 ms QRS Dur : 108 ms QT Int : 394 ms P-R-T Axes : 041 -43 071 degrees QTc Int : 418 ms Sinus rhythm with marked sinus arrhythmia with 1st degree A-V block with occasional Premature ventric ular complexes Left axis deviation Septal infarct , age undetermined Abnormal ECG Confirmed by TESHA THAO, BRENDA ([id number]), commissioning editor QUIQUE HELM ([id number]) on 03/23/2021 7:57:05 AM Referred By: FORD Confirmed By:BRENDA PARKINSON MD
--- NOTE | 2021-03-16 01:15 | EKG12_ITS ---
Test Reason : МАРИНА Blood Pressure : / mmHG Vent. Rate : 057 BPM Atrial Rate : 057 BPM P-R Int : 308 ms QRS Dur : 108 ms QT Int : 408 ms P-R-T Axes : 026 -44 076 degrees QTc Int : 397 ms Sinus bradycardia with marked sinus arrhythmia with 1st degree A-V block Left axis deviation Septal infarct , age undetermined Abnormal ECG When compared with ECG of 15-MAR-2021 13:19, MANUAL COMPARISON REQUIRED, DATA IS UNCONFIRMED Confirmed by YADIEL THAO, ANALI ([id number]), online editor QUIQUE HELM ([id number]) on 03/23/2021 2:05:00 PM Referred By: PACHECO Confirmed By:AZUL COTTO MD
[2021-03-16 05:49] LABS: Absolute Lymphocyte Count 0.98 X10^3/uL (0.83-4.51); Absolute Neutrophil Count 3.2 X10^3/uL (2.0-7.7); Basophil# 0.02 X10^3/uL; Basophil% 0.4 % (0-1); Eosinophil# 0.27 X10^3/uL; Eosinophils% 5.3 % (0-5); Hematocrit 32.3 % (40-54); Hemoglobin 10.7 g/dL (13.0-16.5); Lymphocyte # 0.98 X10^3/ul (0.83-4.51); Lymphocyte % 19.2 % (19-41); Mean Corp Hgb Conc 33.1 g/dL (32-36); Mean Corpuscular Hgb 30.7 pg (27.0-32.0); Mean Corpuscular Volume 92.8 fL (80-94); Mean Platelet Vol. 10.8 fl (6.2-12.0); Monocyte# 0.65 X10^3/uL; Monocyte% 12.7 % (0-10); NRBC Flagged by Analyzer 0 % (0-5); Neutrophil # 3.16 X10^3/uL (2.7-7.7); Platelet Count 174 K/mm3 (150-450); RBC Distribution Width CV 13.2 % (11.6-14.6); RBC Distribution Width SD 45.1 fl (35.1-43.9); Red Blood Count 3.48 M/mm3 (4.6-6.2); White Blood Count 5.1 K/mm3 (4.4-11.0)
[2021-03-16] MEDS: Levothyroxine 75 MCG Tablet PO (06:32)
[2021-03-16 06:34] LABS: Anion Gap 8 (5-15); BUN 31 mg/dL (7-18); BUN/Creat Ratio 19.9 RATIO (10-20); Calcium,Total 8.9 mg/dL (8.5-10.1); Chloride 111 mmol/L (98-107); Creatinine, Serum 1.56 mg/dL (0.70-1.30); EST Glomerular Filtration Rate 45 mL/min (>60); Est Glom Filt Rate - Afr Amer 55 mL/min (>60); Estimated Creatinine Clearance 35.75 ml/min; Glucose 43 mg/dL (74-106); Sodium Level 141 mmol/L (136-145)
[2021-03-16 06:40] LABS: Bedside Glucose 41 mg/dL (70-110)
[2021-03-16 07:10] LABS: Bedside Glucose 82 mg/dL (70-110)
[2021-03-16] MEDS: Dextrose 5%/0.9% NaCl 1,000 ML 75 ML IV ×2 (10:10→21:15)
[2021-03-16] MEDS: Enoxaparin 40 MG/0.4 ML Syringe SC (10:10)
[2021-03-16] MEDS: Glucerna Shake 120 ML LIQUID PO ×3 (10:10→17:07)
[2021-03-16 10:46] LABS: Bedside Glucose 174 mg/dL (70-110)
[2021-03-16] MEDS: Acetaminophen 325 MG Tablet 650 MG PO ×2 (13:30→22:30)
--- NOTE | 2021-03-16 16:35 | CASEMGMT ---
Addendum entered by Emilia Ness 03/16/21 16:41: Daughter Amirah Kaminski HPOA number is [phone] Original Note: LEONARDA SINGLETARY called son Efren to complete CARL form as patient is confused. Efren requested this RN CM call his sister Amirah Kaminski who handles medical questions. LEONARDA SINGLETARY called daughter Amirah to complete CARL form. Amirah states she is patient's HPOA. LEONARDA SINGLETARY explained CARL form, Amirah voiced understanding. Amirah gave telephone consent for CARL form. Original form placed in chart. Copy provided to patient. Amirah had no further questions or concerns at this time.
[2021-03-16] MEDS: Tamsulosin HCl 0.4 MG Capsule PO (17:07)
[2021-03-16 17:51] LABS: Bedside Glucose 221 mg/dL (70-110)
--- NOTE | 2021-03-16 19:07 | PCM.PN.HOSP ---
Subjective Subjective Feels better than yesterday, still little bit weak and he is not having much of an appetite. He did have significant hypoglycemia again this morning but he has not had any changes in his NIHs Objective Data Objective Data Vital Signs: Vital Signs Temp Pulse Resp BP Pulse Ox 97.3 F L 65 18 157/71 H 96 03/16/21 16:05 03/16/21 16:05 03/16/21 16:05 03/16/21 16:05 03/16/21 16:05 Oxygen Flow Rate (L/min) 2 Oxygen Delivery Method Room Air Weight: 238 lb 1.588 oz Body Mass Index (BMI) 33.3 Intake & Output: Intake and Output for Last 24 Hours 03/15/21 03/16/21 03/17/21 03:59 03:59 03:59 Intake Total 700 / 700 Output Total 1500 / 1500 1600 / 1600 Balance -1500 / -1500 -900 / -900 Lab / Micro Data Result Diagrams: 03/16/21 05:22 03/16/21 05:22 Labs: Laboratory Results - last 24 hr 03/15/21 21:13: POC Glucose 122 H 03/16/21 05:22: WBC 5.1, RBC 3.48 L, Hgb 10.7 L, Hct 32.3 L, MCV 92.8, MCH 30.7, MCHC 33.1, RDW Std Deviation 45.1 H, RDW Coeff of Delvis 13.2, Plt Count 174, MPV 10.8, Immature Gran % (Auto) 0.400, Neut % (Auto) 62.0, Lymph % (Auto) 19.2, [place] % (Auto) 12.7 H, Eos % (Auto) 5.3 H, Baso % (Auto) 0.4, Absolute Neuts (auto) 3.2, Absolute Lymphs (auto) 0.98, Nucleated RBC % 0 03/16/21 05:22: Sodium 141, Potassium 4.0, Chloride 111 H, Carbon Dioxide 22.0, Anion Gap 8, BUN 31 H, Creatinine 1.56 H, Estim Creat Clear Calc 35.75, Est GFR (MDRD) Af Amer 55 L, Est GFR (MDRD) Non-Af 45 L, BUN/Creatinine Ratio 19.9, Glucose 43 L*, Calcium 8.9 03/16/21 06:04: POC Glucose 41 L* 03/16/21 07:04: POC Glucose 82 03/16/21 10:12: POC Glucose 174 H 03/16/21 17:09: POC Glucose 221 H Micro: Microbiology 03/15/21 11:10 Nasal Secretion SARS-CoV-2 Antigen (Rapid) - Final SARS-CoV-2 (COVID 19) Physical Exam Const alert, oriented x3 and no apparent distress General Appearance: cooperative HEENT normocephalic Eyes PERRL, EOMs intact bilaterally and conjunctivae normal Neck supple and no JVD Resp normal respiratory effort, no retractions, no use of accessory muscles and clear to auscultation bilaterally Auscultation: Negative for crackles, rales, rhonchi or wheezes Cardio regular rate, regular rhythm, S1 normal heart sound, S2 normal heart sound and no murmurs GI soft to palpation, non-tender and non-distended; Negative for hepatosplenomegaly Extremity no clubbing, cyanosis or edema Skin Skin Narrative: He does have a right lower extremity lesion secondary to a fall Neuro CN's II-XII intact bilaterally, moves all extremities, no focal motor deficits and no sensory deficits noted Psych affect normal Appearance: appropriate Assessment & Plan Assessment/Plan (1) Acute alteration in mental status: (2) Hypoglycemia: (3) COVID-19: PLAN: 1. Fatigue and poor p.o. intake due to COVID-19 leading to hypoglycemia and strokelike symptoms/DM 2 ?His Covid is fairly asymptomatic other than the general fatigue, he is periodically needing oxygen we will continue to evaluate, he is outside of the window for remdesivir however still remains on oxygen in the morning can initiate Decadron therapy ?There is been complete resolution of his strokelike symptoms with replenishment of his blood sugar therefore we will continue to monitor but not pursue any MRI or echo unless NIH is worsen ?NIH is every 4 for 24 hours ?We will hold all of his home blood sugar medication, will place him on Accu-Cheks AC at bedtime as well sliding scale insulin, will make adjustments as necessary and will provide education that if he is not eating or drinking well that he should not be taking his diabetic medications and should just be monitoring his blood sugar ? Had an extensive conversation with his daughter who is power of claims attorney and I discussed his improvement but also the possibility of needing SNF secondary to generalized weakness. She agrees and she also agrees with an MRI being unnecessary at this time given the improvement with his blood sugars. 2. HTN/HLD ?Blood pressures are stable Continue with lisinopril and Lipitor 3. Hypothyroidism ?Stable ?Continue with Synthroid DVT: Lovenox Charges/Coding Visit Charges OBSV E&M: 32001 Subsequent observation care L2
[2021-03-16] MEDS: Atorvastatin Calcium 40 MG Tablet PO (21:15)
[2021-03-16] MEDS: Insulin Lispro 100 UNIT/ML INSULN.PEN SC (21:25)
[2021-03-16 21:40] LABS: Bedside Glucose 353 mg/dL (70-110)
[2021-03-16 22:16] LABS: Magnesium 1.8 mg/dL (1.6-2.6)
[2021-03-17] VITALS (12 sets, daily range): BP systolic 122–153; BP diastolic 48–71; PULSE 48–66; RESP 16–18; TEMP 36.1–36.9; O2SAT 94–100; BMI 33.3
--- NOTE | 2021-03-17 02:53 | EKG12_ITS ---
Test Reason : RHY CHANGE Blood Pressure : / mmHG Vent. Rate : 070 BPM Atrial Rate : 070 BPM P-R Int : 326 ms QRS Dur : 110 ms QT Int : 386 ms P-R-T Axes : 062 -45 088 degrees QTc Int : 416 ms Sinus rhythm with sinus arrhythmia with 1st degree A-V block Left axis deviation Anteroseptal infarct , age undetermined Abnormal ECG When compared with ECG of 16-MAR-2021 01:15, MANUAL COMPARISON REQUIRED, DATA IS UNCONFIRMED Confirmed by YADIEL THAO, ANALI ([id number]), editor & co founder QUIQUE HELM ([id number]) on 03/23/2021 2:01:45 PM Referred By: PACHECO Confirmed By:AZUL COTTO MD
[2021-03-17] MEDS: Levothyroxine 75 MCG Tablet PO (05:01)
[2021-03-17 06:00] LABS: Anion Gap 8 (5-15); BUN 25 mg/dL (7-18); BUN/Creat Ratio 16.8 RATIO (10-20); Calcium,Total 8.4 mg/dL (8.5-10.1); Chloride 107 mmol/L (98-107); Creatinine, Serum 1.49 mg/dL (0.70-1.30); EST Glomerular Filtration Rate 48 mL/min (>60); Est Glom Filt Rate - Afr Amer 58 mL/min (>60); Estimated Creatinine Clearance 37.43 ml/min; Glucose 218 mg/dL (74-106); Phosphorus 2.7 mg/dL (2.5-4.9); Potassium 4.1 mmol/L (3.5-5.1); Sodium Level 138 mmol/L (136-145)
[2021-03-17] MEDS: Insulin Lispro 100 UNIT/ML INSULN.PEN SC ×2 (06:30→21:46)
[2021-03-17 06:51] LABS: Bedside Glucose 190 mg/dL (70-110)
--- NOTE | 2021-03-17 07:24 | ECHOD_ITS ---
Reason For Study: Abnormal EKG Procedure This was a 2D Doppler, Color Flow transthoracic echocardiogram. Technically difficult study, echo done with patient in his recliner. Exam performed portable in patient room. The exam was abbreviated due to the COVID 19 protocol. Left Ventricle Normal LV size. The estimated ejection fraction is 50-55 %. Right Ventricle Not well visualized. Atria Normal left atrium. Normal right atrium. Mitral Valve The mitral valve is structurally normal. No prolapse or stenosis seen. No mitral valve insufficiency. Tricuspid Valve Normal tricuspid valve. Aortic Valve Normal aortic valve. Pulmonic Valve The pulmonic valve is not well visualized. Great Vessels Normal aortic root. Pericardium/Pleural No pericardial effusion. MMode/2D Measurements & Calculations LVIDd: 4.3 cm IVSd: 1.4 cm Ao root diam: 3.8 cm LVIDs: 2.6 cm LVPWd: 1.3 cm FS: 41.2 % Time Measurements MV dec time: 0.33 sec Doppler Measurements & Calculations MV E max saad: 65.2 cm/sec Lat Peak E' Saad: 8.1 cm/sec Med Peak E' Saad: 6.5 cm/sec MV A max saad: 81.8 cm/sec E/E' lat: 8.0 E/E' med: 10.0 MV E/A: 0.80 MV V2 max: 76.1 cm/sec MV P1/2t max saad: 71.3 cm/sec MV max P.3 mmHg MV P1/2t: 115.5 msec MV V2 mean: 45.3 cm/sec MV mean P.95 mmHg MV dec slope: 180.8 cm/sec2 MV V2 VTI: 26.8 cm MVA(P1/2t): 1.9 cm2 ECHO/Echo Complete Interpretation Summary The estimated ejection fraction is 50-55 %. RV not well visualized Mild Apical Hypokinesia No prior echo to compare Ordering Physician: Shan Bowden Referring Physician: Cameron Perez Chi Performed By: Markie Love RCS
--- NOTE | 2021-03-17 07:24 | EKG12_ITS ---
Test Reason : Blood Pressure : / mmHG Vent. Rate : 060 BPM Atrial Rate : 060 BPM P-R Int : 350 ms QRS Dur : 110 ms QT Int : 398 ms P-R-T Axes : 027 -45 079 degrees QTc Int : 398 ms Sinus rhythm with 1st degree A-V block Left axis deviation Septal infarct , age undetermined Abnormal ECG When compared with ECG of 17-MAR-2021 02:57, MANUAL COMPARISON REQUIRED, DATA IS UNCONFIRMED Confirmed by YADIEL THAO, ANALI ([id number]), film editor supervisor QUIQUE HELM ([id number]) on 03/23/2021 2:02:17 PM Referred By: PACHECO Confirmed By:AZUL COTTO MD
--- NOTE | 2021-03-17 10:19 | CASEMGMT ---
JAMIE called patient's daughter, Amirah. JAMIE introduced self and role at [facility]. SW let her know that patient will likely need to go to a [place] as he is not doing well with therapy. Amirah said she spoke with the physician yesterday and he was not sure he wanted to send him to a SNF. SW went over therapy notes with her. JAMIE told her that the only two options that JAMIE has found are [facility] and [facility] in [place]. Amirah said there is no way they will send him to [place]. That is too far away. She was okay with [facility]. However, Amirah said patient and her siblings will all have to agree. Amirah will call her siblings. She told SW to go ahead and send the referral to [facility]. She said patient would probably be agreeable to SNF if the physician told him he needs to go. Amirah will call SW back. JAMIE called [facility] and they are full but do have some discharges coming up. JAMIE faxed referral. Await response. Kaur SAMS
[2021-03-17] MEDS: Dextrose 5%/0.9% NaCl 1,000 ML 50 ML IV (10:30)
[2021-03-17] MEDS: Enoxaparin 40 MG/0.4 ML Syringe SC (10:30)
--- NOTE | 2021-03-17 10:55 | CASEMGMT ---
SW received a call from patient's daughter Amirah. She said she and her siblings are in agreement with patient going to [place] for rehab, but only if patient is in agreement. JAMIE told her SW will let her know when SW knows more. Kaur SAMS
[2021-03-17 11:10] LABS: Bedside Glucose 152 mg/dL (70-110)
--- NOTE | 2021-03-17 12:15 | CASEMGMT ---
JAMIE received a call from patient's daughter Amirah. Amirah said she and her siblings are in agreement with patient going to [facility] as long as patient is in agreement with this. SW let her know SW will update her when SW knows more. Kaur Jamison [employer] OPERATOR LATRELL
--- NOTE | 2021-03-17 12:15 | CASEMGMT ---
Addendum entered by Kaur Jamison 03/17/21 15:47: SW called patient's daughter mAirah and updated her about [facility] and patient staying through the weekend. Kaur SAMS Original Note: SW received a call from [facility] and they are full right now. They will hang on to patient's referral. She was not sure when they would have beds open up. She told SW to follow up on Saturday. The only two options patient has for SNF are [facility] and [facility] in [place]. SW called [facility] and they are full and do not anticipate any openings. These were patient's only two options. SW let physician know and because patient is an assist of 2 people and lives alone patient will stay through the weekend. SW will follow up with patient's daughter. Kaur SAMS
--- NOTE | 2021-03-17 14:51 | CON.PCM.CA_ITS ---
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 Recommend that he not to be on any rate limiting medications. Do not feel that any additional cardiac testing needs to be done. If any additional cardiac input is needed during his hospital stay please contact us otherwise we will be signing off. Feel that he can follow-up with his primary care doctor for this on an outpatient basis. HPI Consult Data Date of Consult: 03/17/21 HPI Narrative HPI Narrative: WESTON WORTHY, is a 85 M who presents we were asked to consult on for an abnormal EKG. Patient presented to the emergency room for concerns over altered mental status and hypoglycemia. He was evaluated for a stroke however this was ruled out. He was also noted to be Covid positive. Patient was placed on telemetry and it was noted that he was having pauses, we were asked to evaluate. He does have a history of second-degree AV block type I. He also has a history of first-degree AV block. In talking with patient he has never had any lightheadedness or syncope or near syncopal events until he presented to the emergency room with altered mental status. He has never followed with a assistant executive housekeeper. He does have a history of hypertension, hyperlipidemia and diabetes. [facility] Medical History (Updated 03/17/21 @ 15:00 by Andra CISNEROS PA) High blood cholesterol Hypertension Hypothyroid Home Medications atorvastatin 40 mg PO QHS 03/10/19 [History Last Taken 03/09/19] levothyroxine 75 mcg PO DAILY 03/10/19 [History Last Taken 04/29/19 10:00] lisinopril 10 mg PO DAILY 03/10/19 [History Last Taken 04/29/19 10:00] glimepiride 4 mg PO BID 03/15/21 [History Last Taken Unknown] insulin glargine U-300 conc [Toujeo SoloStar U-300 Insulin] 20 unit SUBCUT QHS 03/15/21 [History Last Taken Unknown] pioglitazone 30 mg PO DAILY 03/15/21 [History Last Taken Unknown] Allergy/AdvReac Type Severity Reaction Status Date / Time No Known Allergies Allergy Verified 03/15/21 11:00 Family History (Updated 03/15/21 @ 16:[address] Jimenez Fernandes MD) Other Diabetes Surgical History (Updated 03/15/21 @ 16:[address] Jimenez Fernandes MD) Status post laser lithotripsy of ureteral calculus Status post tonsillectomy Social History Smoking Status: Never smoker ROS ROS Narrative Patient does not have any chest discomfort, heaviness or tightness. He does not have any symptoms of worsening shortness of breath. He does have shortness of breath with exertion but feels that this is stable. He is not had any palpitations that he is aware of. He does not have any lightheadedness or dizziness. He does not have any lower extremity edema. He does have weakness in his right side and this is chronic. Physical Exam Const alert, oriented x3, no apparent distress, average body habitus and healthy appearing HEENT normocephalic, head/scalp atraumatic, hearing grossly normal bilaterally, external nose normal, nasal mucous membranes and turbinates normal and moist oral mucous membranes Eyes PERRL, EOMs intact bilaterally, conjunctivae normal and no scleral icterus Neck full ROM Chest inspection of chest normal Resp normal respiratory effort, normal air movement, no retractions, no use of accessory muscles and clear to auscultation bilaterally Cardio regular rate, regular rhythm, S1 normal heart sound, S2 normal heart sound, no murmurs, no rub, no gallops, no clicks, no JVD and peripheral pulses 2+ throughout GI normal to inspection, nondistended, normoactive bowel sounds, soft to palpation, non-tender and non-distended Extremity normal to inspection, normal capillary refill, no joint enlargement and no clubbing, cyanosis or edema Skin no rashes or lesions noted Neuro oriented x3, CN's II-XII intact bilaterally and moves all extremities Risk Stratification Risk Stratification Applicable: No Charges/Coding Visit Charges Office Visits / Consults: 16924 IP Consult L3 Objective Data Vital Signs: Vital Signs Temp Pulse Resp BP Pulse Ox 98.1 F 50 L 16 140/61 H 99 03/17/21 10:25 03/17/21 10:25 03/17/21 10:25 03/17/21 10:25 03/17/21 12:20 Oxygen Flow Rate (L/min) 2 Oxygen Delivery Method Room Air Weight: 238 lb 1.588 oz Body Mass Index (BMI) 33.3 Intake & Output: Intake and Output for Last 24 Hours 03/15/21 03/16/21 03/17/21 23:59 23:59 23:59 Intake Total 1531.25 / 1831.25 1697.75 / 1697.75 Output Total 1100 / 1500 2000 / 2500 1150 / 1150 Balance -1100 / -1500 -468.75 / -668.75 547.75 / 547.75 Lab / Micro Data Result Diagrams: 03/18/21 07:17 03/18/21 07:17 Labs: Laboratory Results - last 24 hr 03/16/21 17:09: POC Glucose 221 H 03/16/21 21:19: POC Glucose 353 H 03/16/21 21:58: Magnesium 1.8 03/17/21 04:52: Sodium 138, Potassium 4.1, Chloride 107, Carbon Dioxide 23.0, Anion Gap 8, BUN 25 H, Creatinine 1.49 H, Estim Creat Clear Calc 37.43, Est GFR (MDRD) Af Amer 58 L, Est GFR (MDRD) Non-Af 48 L, BUN/Creatinine Ratio 16.8, Glu cose 218 H, Calcium 8.4 L, Phosphorus 2.7 03/17/21 06:25: POC Glucose 190 H 03/17/21 10:32: POC Glucose 152 H Cardiology Labs/Tests 03/16/21 21:58: Magnesium 1.8 03/17/21 04:52: Sodium 138, Potassium 4.1, Chloride 107, Carbon Dioxide 23.0, Anion Gap 8, BUN 25 H, Creatinine 1.49 H, Est GFR (MDRD) Af Amer 58 L, Est GFR (MDRD) Non-Af 48 L, BUN/Creatinine Ratio 16.8, Glucose 218 H, Calcium 8.4 L, Phosphorus 2.7 Rhythm: SR, 1st degree AVB, intermittent second-degree AV block type I ECHO:The estimated ejection fraction is 50-55 %. RV not well visualized Mild Apical Hypokinesia No prior echo to compare Radiography Diagnostic Testing: Radiology Impression Echocardiogram 03/17/21 07:24 Interpretation Summary The estimated ejection fraction is 50-55 %. RV not well visualized Mild Apical Hypokinesia No prior echo to compare Ordering Physician: Shan Bowden Referring Physician: Cameron Perez Chi Performed By: Markie Love RCS Documented by User: Dr. Shan Bowden MD 03/18/21 14:53 HPI Consult Data Date of Consult: 03/18/21 [facility] Medical History (Updated 03/17/21 @ 15:00 by Andra CISNEROS, PA) High blood cholesterol Hypertension Hypothyroid Home Medications atorvastatin 40 mg PO QHS 03/10/19 [History Last Taken 03/09/19] levothyroxine 75 mcg PO DAILY 03/10/19 [History Last Taken 04/29/19 10:00] lisinopril 10 mg PO DAILY 03/10/19 [History Last Taken 04/29/19 10:00] glimepiride 4 mg PO BID 03/15/21 [History Last Taken Unknown] insulin glargine U-300 conc [T[employer] SoloStar U-300 Insulin] 20 unit SUBCUT QHS 03/15/21 [History Last Taken Unknown] pioglitazone 30 mg PO DAILY 03/15/21 [History Last Taken Unknown] Allergy/AdvReac Type Severity Reaction Status Date / Time No Known Allergies Allergy Verified 03/15/21 11:00 Family History (Updated 03/15/21 @ 16:[address] Jimenez Fernandes MD) Other Diabetes Surgical History (Updated 03/15/21 @ 16:[address] Jimenez Fernandes MD) Status post laser lithotripsy of ureteral calculus Status post tonsillectomy Social History Smoking Status: Never smoker Lab / Micro Data Result Diagrams: 03/18/21 07:17 03/18/21 07:17
[2021-03-17] MEDS: Glucerna Shake 120 ML LIQUID PO (16:18)
[2021-03-17] MEDS: Tamsulosin HCl 0.4 MG Capsule PO (16:19)
[2021-03-17] MEDS: Acetaminophen 325 MG Tablet 650 MG PO ×2 (16:19→22:41)
[2021-03-17 16:26] LABS: Bedside Glucose 159 mg/dL (70-110)
--- NOTE | 2021-03-17 16:27 | PN.HOSP_ITS ---
Subjective Subjective Feels well today, he sitting up in the chair. He is still fairly weak and has been unable to eat anything today secondary to what seems to be third-degree AV block overnight, there is a possibility for interventional cardiology procedure. It does not appear to be necessary therefore we will allow him to eat at this time Objective Data Objective Data Vital Signs: Vital Signs Temp Pulse Resp BP Pulse Ox 98.1 F 50 L 16 140/61 H 99 03/17/21 10:25 03/17/21 10:25 03/17/21 10:25 03/17/21 10:25 03/17/21 12:20 Oxygen Flow Rate (L/min) 2 Oxygen Delivery Method Room Air Weight: 238 lb 1.588 oz Body Mass Index (BMI) 33.3 Intake & Output: Intake and Output for Last 24 Hours 03/16/21 03/17/21 03/18/21 03:59 03:59 03:59 Intake Total 1935.25 / 1935.25 1293.75 / 1293.75 Output Total 1500 / 1500 2100 / 2100 650 / 650 Balance -1500 / -1500 -164.75 / -164.75 643.75 / 643.75 Lab / Micro Data Result Diagrams: 03/16/21 05:22 03/17/21 04:52 Labs: Laboratory Results - last 24 hr 03/16/21 17:09: POC Glucose 221 H 03/16/21 21:19: POC Glucose 353 H 03/16/21 21:58: Magnesium 1.8 03/17/21 04:52: Sodium 138, Potassium 4.1, Chloride 107, Carbon Dioxide 23.0, Anion Gap 8, BUN 25 H, Creatinine 1.49 H, Estim Creat Clear Calc 37.43, Est GFR (MDRD) Af Amer 58 L, Est GFR (MDRD) Non-Af 48 L, BUN/Creatinine Ratio 16.8, Glucose 218 H, Calcium 8.4 L, Phosphorus 2.7 03/17/21 06:25: POC Glucose 190 H 03/17/21 10:32: POC Glucose 152 H 03/17/21 15:55: POC Glucose 159 H Micro: Microbiology 03/15/21 11:10 Nasal Secretion SARS-CoV-2 Antigen (Rapid) - Final SARS-CoV-2 (COVID 19) Radiography Diagnostic Testing: Radiology Impression Echocardiogram 03/17/21 07:24 Interpretation Summary The estimated ejection fraction is 50-55 %. RV not well visualized Mild Apical Hypokinesia No prior echo to compare Ordering Physician: Shan Bowden Referring Physician: Cameron Perez Chi Performed By: Markie Love RCS Physical Exam Narrative Const alert, oriented x3 and no apparent distress General Appearance: cooperative HEENT normocephalic Eyes PERRL, EOMs intact bilaterally and conjunctivae normal Neck supple and no JVD Resp normal respiratory effort, no retractions, no use of accessory muscles and clear to auscultation bilaterally Auscultation: Negative for crackles, rales, rhonchi or wheezes Cardio regular rate, regular rhythm, S1 normal heart sound, S2 normal heart sound and no murmurs GI soft to palpation, non-tender and non-distended; Negative for hepatosplenomegaly Extremity no clubbing, cyanosis or edema Skin Skin Narrative: He does have a right lower extremity lesion secondary to a fall Neuro CN's II-XII intact bilaterally, moves all extremities, no focal motor deficits and no sensory deficits noted Psych affect normal Appearance: appropriate Assessment & Plan Assessment/Plan (1) COVID-19: (2) Hypoglycemia: (3) Acute alteration in mental status: PLAN: 1. Fatigue and poor p.o. intake due to COVID-19 leading to hypoglycemia and strokelike symptoms/DM 2 ?His Covid is fairly asymptomatic other than the general fatigue, he is periodically needing oxygen we will continue to evaluate, he is outside of the window for remdesivir however still remains on oxygen in the morning can initiate Decadron therapy ?There is been complete resolution of his strokelike symptoms with replenishment of his blood sugar therefore we will continue to monitor but not pursue any MRI or echo unless NIH is worsen ?NIH can be discontinued as they have been stable ?We will hold all of his home blood sugar medication, will place him on Accu- Cheks AC at bedtime as well sliding scale insulin, will make adjustments as necessary and will provide education that if he is not eating or drinking well that he should not be taking his diabetic medications and should just be monitoring his blood sugar ? Had an extensive conversation with his daughter who is power of commercial real estate attorney and I discussed his improvement but also the possibility of needing SNF secondary to generalized weakness. She agrees and she also agrees with an MRI being unnecessary at this time given the improvement with his blood sugars. 2. HTN/HLD/AV block ?Blood pressures are stable ?Continue with lisinopril and Lipitor ? We will consult cardiology for evaluation of this possible second-degree versus third-degree AV block 3. Hypothyroidism ?Stable ?Continue with Synthroid DVT: Lovenox Charges/Coding Visit Charges Inpatient E&M: 43351 Subs Hosp L2
[2021-03-17] MEDS: Atorvastatin Calcium 40 MG Tablet PO (21:47)
[2021-03-17 22:00] LABS: Bedside Glucose 287 mg/dL (70-110)
--- NOTE | 2021-03-17 22:59 | NURSING ---
straight catheterized at this time, 410 ML output. Patient tolerated well.
[2021-03-18] VITALS (10 sets, daily range): BP systolic 153–165; BP diastolic 62–70; PULSE 40–64; RESP 16–18; TEMP 36–36.6; O2SAT 96–98; BMI 33.3
[2021-03-18] MEDS: Levothyroxine 75 MCG Tablet PO (05:38)
[2021-03-18] MEDS: Dextrose 5%/0.9% NaCl 1,000 ML 50 ML IV (05:40)
--- NOTE | 2021-03-18 06:09 | NURSING ---
straight catheterized patient at this time 600ML. tolerated well.
[2021-03-18] MEDS: Insulin Lispro 100 UNIT/ML INSULN.PEN SC ×4 (06:31→23:50)
[2021-03-18 07:06] LABS: Bedside Glucose 150 mg/dL (70-110)
[2021-03-18 08:18] LABS: Absolute Lymphocyte Count 0.97 X10^3/uL (0.83-4.51); Absolute Neutrophil Count 2.8 X10^3/uL (2.0-7.7); Basophil# 0.01 X10^3/uL; Basophil% 0.2 % (0-1); Eosinophil# 0.38 X10^3/uL; Eosinophils% 7.8 % (0-5); Hematocrit 32.4 % (40-54); Hemoglobin 10.5 g/dL (13.0-16.5); Lymphocyte # 0.97 X10^3/ul (0.83-4.51); Mean Corp Hgb Conc 32.4 g/dL (32-36); Mean Corpuscular Hgb 30.2 pg (27.0-32.0); Mean Corpuscular Volume 93.1 fL (80-94); Monocyte# 0.59 X10^3/uL; Monocyte% 12.2 % (0-10); NRBC Flagged by Analyzer 0 % (0-5); Neutrophil # 2.84 X10^3/uL (2.7-7.7); Neutrophil % 58.6 % (47-70); Platelet Count 194 K/mm3 (150-450); RBC Distribution Width SD 43.9 fl (35.1-43.9); Red Blood Count 3.48 M/mm3 (4.6-6.2); White Blood Count 4.9 K/mm3 (4.4-11.0)
[2021-03-18 08:46] LABS: Anion Gap 5 (5-15); BUN 27 mg/dL (7-18); BUN/Creat Ratio 19.3 RATIO (10-20); Calcium,Total 8.6 mg/dL (8.5-10.1); Chloride 109 mmol/L (98-107); EST Glomerular Filtration Rate 51 mL/min (>60); Est Glom Filt Rate - Afr Amer 62 mL/min (>60); Estimated Creatinine Clearance 39.83 ml/min; Glucose 139 mg/dL (74-106); Potassium 4.2 mmol/L (3.5-5.1); Sodium Level 139 mmol/L (136-145)
[2021-03-18] MEDS: Glucerna Shake 120 ML LIQUID PO ×3 (09:08→16:46)
--- NOTE | 2021-03-18 11:03 | PN.HOSP_ITS ---
Subjective Subjective Doing well today, seems more alert and more animated, he is eating breakfast and states that his appetite seems to be coming back Objective Data Objective Data Vital Signs: Vital Signs Temp Pulse Resp BP Pulse Ox 97.8 F 51 L 18 154/70 H 96 03/18/21 04:25 03/18/21 07:00 03/18/21 04:25 03/18/21 04:25 03/18/21 04:25 Oxygen Flow Rate (L/min) 2 Oxygen Delivery Method Room Air Weight: 238 lb 1.588 oz Body Mass Index (BMI) 33.3 Intake & Output: Intake and Output for Last 24 Hours 03/17/21 03/18/21 03/19/21 03:59 03:59 03:59 Intake Total 1935.25 / 1935.25 1793.75 / 1793.75 1000 / 1000 Output Total 2100 / 2100 2350 / 2350 600 / 600 Balance -164.75 / -164.75 -556.25 / -556.25 400 / 400 Lab / Micro Data Result Diagrams: 03/18/21 07:17 03/18/21 07:17 Labs: Laboratory Results - last 24 hr 03/17/21 10:32: POC Glucose 152 H 03/17/21 15:55: POC Glucose 159 H 03/17/21 21:44: POC Glucose 287 H 03/18/21 06:29: POC Glucose 150 H 03/18/21 07:17: WBC 4.9, RBC 3.48 L, Hgb 10.5 L, Hct 32.4 L, MCV 93.1, MCH 30.2, MCHC 32.4, RDW Std Deviation 43.9, RDW Coeff of Delvis 13.0, Plt Count 194, MPV 11.0, Immature Gran % (Auto) 1.200 H, Neut % (Auto) 58.6, Lymph % (Auto) 20.0, [place] % (Auto) 12.2 H, Eos % (Auto) 7.8 H, Baso % (Auto) 0.2, Absolute Neuts (auto) 2.8, Absolute Lymphs (auto) 0.97, Nucleated RBC % 0 03/18/21 07:17: Sodium 139, Potassium 4.2, Chloride 109 H, Carbon Dioxide 25.0, Anion Gap 5, BUN 27 H, Creatinine 1.40 H, Estim Creat Clear Calc 39.83, Est GFR (MDRD) Af Amer 62, Est GFR (MDRD) Non-Af 51 L, BUN/Creatinine Ratio 19.3, Glucose 139 H, Calcium 8.6 Micro: Microbiology 03/15/21 11:10 Nasal Secretion SARS-CoV-2 Antigen (Rapid) - Final SARS-CoV-2 (COVID 19) Physical Exam Narrative Const alert, oriented x3 and no apparent distress General Appearance: cooperative HEENT normocephalic Eyes PERRL, EOMs intact bilaterally and conjunctivae normal Neck supple and no JVD Resp normal respiratory effort, no retractions, no use of accessory muscles and clear to auscultation bilaterally Auscultation: Negative for crackles, rales, rhonchi or wheezes Cardio regular rate, regular rhythm, S1 normal heart sound, S2 normal heart sound and no murmurs GI soft to palpation, non-tender and non-distended; Negative for hepatosplenomegaly Extremity no clubbing, cyanosis or edema Skin Skin Narrative: He does have a right lower extremity lesion secondary to a fall Neuro CN's II-XII intact bilaterally, moves all extremities, no focal motor deficits and no sensory deficits noted Psych affect normal Appearance: appropriate Assessment & Plan Assessment/Plan (1) COVID-19: (2) Hypoglycemia: (3) Acute alteration in mental status: PLAN: 1. Fatigue and poor p.o. intake due to COVID-19 leading to hypoglycemia and strokelike symptoms/DM 2 ?His Covid is fairly asymptomatic other than the general fatigue, he is periodically needing oxygen we will continue to evaluate, he is outside of the window for remdesivir however still remains on oxygen in the morning can initiate Decadron therapy ?There is been complete resolution of his strokelike symptoms with replenishment of his blood sugar though ?We will hold all of his home blood sugar medication, will place him on Accu-C heks AC at bedtime as well sliding scale insulin, will make adjustments as necessary and will provide education that if he is not eating or drinking well that he should not be taking his diabetic medications and should just be monitoring his blood sugar ? Had an extensive conversation with his daughter who is power of j2ee engineer and I discussed his improvement but also the possibility of needing SNF secondary to generalized weakness. She agrees and she also agrees with an MRI being unnecessary at this time given the improvement with his blood sugars. 2. HTN/HLD/AV block ?Blood pressures are stable ?Continue with lisinopril and Lipitor ?Cardiology evaluated him and felt that most of his rhythms were second-degree AV block type I with sinus rhythm and first-degree AV block. ? Echo with an EF of 50 to 55% with mild apical hypokinesia 3. Hypothyroidism ?Stable ?Continue with Synthroid Disposition: Based on PT/OT evaluations currently plan is for SNF, however if he is able to eat and gain some strength he could potentially be discharged home DVT: Mariam Charges/Coding Visit Charges Inpatient E&M: 18542 Subs Hosp L2
[2021-03-18] MEDS: Enoxaparin 40 MG/0.4 ML Syringe SC (11:23)
[2021-03-18] MEDS: Acetaminophen 325 MG Tablet 650 MG PO ×2 (11:29→23:53)
[2021-03-18 11:36] LABS: Bedside Glucose 212 mg/dL (70-110)
[2021-03-18] MEDS: Tamsulosin HCl 0.4 MG Capsule PO (16:46)
[2021-03-18 17:05] LABS: Bedside Glucose 263 mg/dL (70-110)
[2021-03-18] MEDS: Atorvastatin Calcium 40 MG Tablet PO (23:49)
[2021-03-19] VITALS (9 sets, daily range): BP systolic 131–178; BP diastolic 57–75; PULSE 40–63; RESP 16; TEMP 36.1–37.2; O2SAT 94–98
[2021-03-19 03:41] LABS: Bedside Glucose 186 mg/dL (70-110)
[2021-03-19] MEDS: Levothyroxine 75 MCG Tablet PO (05:38)
[2021-03-19 06:51] LABS: Anion Gap 6 (5-15); BUN 26 mg/dL (7-18); BUN/Creat Ratio 18.1 RATIO (10-20); Calcium,Total 9.2 mg/dL (8.5-10.1); Chloride 108 mmol/L (98-107); Creatinine, Serum 1.44 mg/dL (0.70-1.30); EST Glomerular Filtration Rate 50 mL/min (>60); Est Glom Filt Rate - Afr Amer 60 mL/min (>60); Estimated Creatinine Clearance 38.72 ml/min; Glucose 131 mg/dL (74-106); Potassium 4.1 mmol/L (3.5-5.1); Sodium Level 138 mmol/L (136-145)
[2021-03-19 07:11] LABS: Bedside Glucose 126 mg/dL (70-110)
[2021-03-19] MEDS: Glucerna Shake 120 ML LIQUID PO ×2 (10:25→17:52)
[2021-03-19] MEDS: Enoxaparin 40 MG/0.4 ML Syringe SC (10:26)
[2021-03-19] MEDS: Insulin Lispro 100 UNIT/ML INSULN.PEN SC ×3 (11:58→23:42)
[2021-03-19 12:06] LABS: Bedside Glucose 158 mg/dL (70-110)
[2021-03-19] MEDS: Lisinopril 10 MG Tablet PO (15:18)
[2021-03-19] MEDS: Acetaminophen 325 MG Tablet 650 MG PO (15:37)
[2021-03-19 15:40] LABS: Bedside Glucose 241 mg/dL (70-110)
--- NOTE | 2021-03-19 16:13 | PN.HOSP_ITS ---
Subjective Subjective Patient was seen and examined today, patient remains on room air. Objective Data Objective Data Vital Signs: Vital Signs Temp Pulse Resp BP Pulse Ox 98.9 F 56 L 16 165/63 H 98 03/19/21 15:14 03/19/21 15:14 03/19/21 15:14 03/19/21 15:14 03/19/21 15:14 Oxygen Flow Rate (L/min) 2 Oxygen Delivery Method Room Air Weight: 108 kg Body Mass Index (BMI) 33.3 Intake & Output: Intake and Output for Last 24 Hours 03/17/21 03/18/21 03/19/21 23:59 23:59 23:59 Intake Total 2197.75 / 2197.75 1989 / 1989 480 / 480 Output Total 2400 / 2850 2200 / 2800 2900 / 2900 Balance -202.25 / -652.25 -210 / -810 -2420 / -2420 Lab / Micro Data Result Diagrams: 03/18/21 07:17 03/19/21 05:45 Labs: Laboratory Results - last 24 hr 03/18/21 16:45: POC Glucose 263 H 03/18/21 23:18: POC Glucose 186 H 03/19/21 05:45: Sodium 138, Potassium 4.1, Chloride 108 H, Carbon Dioxide 24.0, Anion Gap 6, BUN 26 H, Creatinine 1.44 H, Estim Creat Clear Calc 38.72, Est GFR (MDRD) Af Amer 60, Est GFR (MDRD) Non-Af 50 L, BUN/Creatinine Ratio 18.1, Glucose 131 H, Calcium 9.2 03/19/21 05:45: POC Glucose 126 H 03/19/21 11:56: POC Glucose 158 H 03/19/21 15:30: POC Glucose 241 H Micro: Microbiology 03/15/21 11:10 Nasal Secretion SARS-CoV-2 Antigen (Rapid) - Final SARS-CoV-2 (COVID 19) Physical Exam Const alert, oriented x3 and no apparent distress Constitutional Narrative: Patient appears his stated age General Appearance: cooperative, well kempt and well developed Orientation / Consciousness: awake, oriented to person, oriented to place and oriented to time HEENT normocephalic, head/scalp atraumatic and moist oral mucous membranes Head and Scalp: normocephalic Eyes PERRL, EOMs intact bilaterally and conjunctivae normal Neck nuchal rigidity, supple, no JVD, thyroid normal and no carotid bruits General: trachea midline Resp normal respiratory effort, no retractions, no use of accessory muscles and clear to auscultation bilaterally Auscultation: Negative for rales, rhonchi or wheezes Cardio regular rate, regular rhythm, S1 normal heart sound, S2 normal heart sound, no murmurs, no rub and no gallops GI normal to inspection, nondistended, normoactive bowel sounds, soft to palpation, non-tender and non-distended Extremity normal to inspection and no clubbing, cyanosis or edema Skin no rashes or lesions noted, no wounds and skin turgor normal General Skin Exam: no breakdown Neuro oriented x3, CN's II-XII intact bilaterally, no focal motor deficits and no sensory deficits noted Sensorium / Orientation: awake and alert Speech: speech normal Psych thought process normal and affect normal Assessment & Plan Assessment/Plan (1) Acute alteration in mental status: PLAN: 1. Encephalopathy secondary to hypoglycemia on a backdrop of generalized debility secondary to COVID infection-patient is alert at this t chad, PT and OT are seeing the patient, patient will need temporary placement in a group home facility. #2 generalized debility secondary to COVID-19 infection-PT and OT are seeing the patient, he will need to go to an extended care facility for short-term rehab services. #3 type 2 diabetes-patient's blood sugars will be monitored,/scale insulin will be administered as needed #4 secondary A-V block type I along with episodes of sinus rhythm with first- degree AV block-cardiology was participating in his care. It was recommended by cardiology that he not be placed on any rate limiting medications. 5. COVID-19 infection without pneumonia-patient is not a candidate for any treatment at this time, patient is not hypoxic Charges/Coding Visit Charges Inpatient E&M: 85901 Subs Hosp L2
[2021-03-19] MEDS: Atorvastatin Calcium 40 MG Tablet PO (23:40)
[2021-03-20] VITALS (9 sets, daily range): BP systolic 124–154; BP diastolic 49–76; PULSE 40–70; RESP 16–18; TEMP 36.4–36.7; O2SAT 95–98
[2021-03-20] MEDS: Acetaminophen 325 MG Tablet 650 MG PO ×2 (00:38→20:11)
[2021-03-20 01:00] LABS: Bedside Glucose 239 mg/dL (70-110)
[2021-03-20] MEDS: Insulin Lispro 100 UNIT/ML INSULN.PEN SC ×4 (06:56→20:11)
[2021-03-20] MEDS: Levothyroxine 75 MCG Tablet PO (06:57)
--- NOTE | 2021-03-20 09:33 | CASEMGMT ---
JAMIE called [facility] and left a message for Kristal regarding referral. JAMIE also faxed updated information. Await return call. Kaur Jamison FRONT SIGHT ATTACHER [place]
[2021-03-20] MEDS: Lisinopril 10 MG Tablet PO (09:47)
[2021-03-20] MEDS: Enoxaparin 40 MG/0.4 ML Syringe SC (09:48)
[2021-03-20 11:35] LABS: Bedside Glucose 165 mg/dL (70-110)
[2021-03-20] MEDS: Glucerna Shake 120 ML LIQUID PO (12:05)
[2021-03-20 12:16] LABS: Bedside Glucose 266 mg/dL (70-110)
--- NOTE | 2021-03-20 13:05 | CASEMGMT ---
JAMIE called Kristal at [facility]. Kristal apologized that she hasn't gotten back to yet. She said they have a lot of referrals and she is just getting back today. She will get back to before the end of the day. Kaur Jamison SUPERVISOR SCOURING PADS [place]
--- NOTE | 2021-03-20 15:59 | CASEMGMT ---
JAMIE received a call from Kristal at [facility]. She asked some questions which JAMIE answered. They will be able to accept patient tomorrow. She asked that JAMIE fax a demographics sheet and patient's positive COVID test. JAMIE faxed this information. JAMIE will talk with patients daughter tomorrow. Plan: d/c to [facility] Kaur SAMS
[2021-03-20 17:40] LABS: Bedside Glucose 202 mg/dL (70-110)
--- NOTE | 2021-03-20 19:49 | PN.HOSP_ITS ---
Subjective Subjective Patient was seen and examined today, he does not complain of any shortness of breath, patient remains on room air at this time, we are awaiting approval for patient to go to an extended care facility for rehab services. Patient had an episode of asystole today which lasted approximately 5 seconds, I talked with hi s daughter by phone today and his daughter verified that the patient does not want anything done such as a pacemaker or diagnostic testing, she states he would want to be a DNR and would not want to be resuscitated. I have changed his CODE STATUS today to DNR comfort care. Objective Data Objective Data Vital Signs: Vital Signs Temp Pulse Resp BP Pulse Ox 97.9 F 58 L 18 154/65 H 98 03/20/21 15:00 03/20/21 15:00 03/20/21 15:00 03/20/21 15:00 03/20/21 15:00 Oxygen Flow Rate (L/min) 2 Oxygen Delivery Method Room Air Weight: 108 kg Body Mass Index (BMI) 33.3 Intake & Output: Intake and Output for Last 24 Hours 03/18/21 03/19/21 03/20/21 23:59 23:59 23:59 Intake Total 1989 / 1989 480 / 480 540 / 540 Output Total 2200 / 2800 3650 / 4250 2925 / 2925 Balance -210 / -810 -3170 / -3770 -2385 / -2385 Lab / Micro Data Result Diagrams: 03/18/21 07:17 03/19/21 05:45 Labs: Laboratory Results - last 24 hr 03/19/21 23:39: POC Glucose 239 H 03/20/21 06:55: POC Glucose 165 H 03/20/21 12:02: POC Glucose 266 H 03/20/21 17:08: POC Glucose 202 H Micro: Microbiology 03/15/21 11:10 Nasal Secretion SARS-CoV-2 Antigen (Rapid) - Final SARS-CoV-2 (COVID 19) Physical Exam Const alert and no apparent distress General Appearance: cooperative, well kempt and well developed Orientation / Consciousness: awake, oriented to person, oriented to place and oriented to time HEENT normocephalic and moist oral mucous membranes Eyes PERRL, EOMs intact bilaterally and conjunctivae normal Neck nuchal rigidity, supple, no JVD and thyroid normal General: trachea midline Resp normal respiratory effort, no retractions, no use of accessory muscles and clear to auscultation bilaterally Auscultation: Negative for rales, rhonchi or wheezes Cardio regular rate, regular rhythm, S1 normal heart sound, S2 normal heart sound, no murmurs, no rub and no gallops GI normal to inspection, nondistended, normoactive bowel sounds, soft to palpation, non-tender and non-distended Extremity normal to inspection and no clubbing, cyanosis or edema Skin no rashes or lesions noted General Skin Exam: no breakdown Neuro CN's II-XII intact bilaterally, no focal motor deficits and no sensory deficits noted Sensorium / Orientation: awake and alert Speech: speech normal Psych affect normal Assessment & Plan Assessment/Plan (1) Second degree atrioventricular block, Mobitz (type) I: (2) Acute alteration in mental status: PLAN: 1. Encephalopathy secondary to hypoglycemia on a backdrop of generalized debility secondary to COVID infection-patient is alert at this time, PT and OT are seeing the patient, patient will need temporary placement in a [place] [facility] [place] facility. Again I talked at length with his daughter by phone today. Patient's CODE STATUS was changed to a DNR comfort care. #2 generalized debility secondary to COVID-19 infection-PT and OT are seeing the patient, he will need to go to an extended care facility for short-term rehab services. #3 type 2 diabetes-patient's blood sugars will be monitored,/scale insulin will be administered as needed #4 secondary A-V block type I along with episodes of sinus rhythm with first- degree AV block-cardiology was participating in his care. It was recommended by cardiology that he not be placed on any rate limiting medications. 5. COVID-19 infection without pneumonia-patient is not a candidate for any treatment at this time, patient is not hypoxic #6 asystole for 5 seconds as noted on telemetry today-patient was asymptomatic, again the patient is a DNR comfort care. Patient is not on any rate limiting medications at this time. Cardiology had seen the patient over the weekend and recommended no rate limiting medications. Charges/Coding Visit Charges Inpatient E&M: 68318 Subs Hosp L2
[2021-03-20] MEDS: Atorvastatin Calcium 40 MG Tablet PO (20:11)
[2021-03-20 21:55] LABS: Bedside Glucose 260 mg/dL (70-110)
[2021-03-21] VITALS (7 sets, daily range): BP systolic 136–160; BP diastolic 66–91; PULSE 53–63; RESP 16–18; TEMP 36.3–36.9; O2SAT 97–98
[2021-03-21] MEDS: Levothyroxine 75 MCG Tablet PO (05:04)
[2021-03-21] MEDS: Insulin Lispro 100 UNIT/ML INSULN.PEN SC ×3 (06:34→16:43)
[2021-03-21 06:41] LABS: Bedside Glucose 162 mg/dL (70-110)
[2021-03-21] MEDS: Glucerna Shake 120 ML LIQUID PO ×2 (09:15→12:41)
--- NOTE | 2021-03-21 09:35 | CASEMGMT ---
Patient is ready for discharge today. JAMIE met with patient. Introduced self and role at [facility]. JAMIE explained to patient that it is being recommended that he go to a care home facility short term for rehab. JAMIE explained that because he has COVID there are very few facilities that will accept him. JAMIE told him the closest one that takes his insurance is the [facility] unit. Patient agreed to go if that is what is best. JAMIE reminded him that it is short term just to get him a little stronger. JAMIE told him SW will update his family as well. JAMIE called Kristal at [facility] and patient is okay to come today. JAMIE asked about visitation. Patient is allowed to have a visitor a day and it can change daily. The visitor cannot come and go they need to stay in the room. JAMIE called patient's daughter Amirah and let her know patient will go to [place] today. SW let her know that patient is aware. He is not excited, but agreeable. She will get clothes for patient and take them to [place]. JAMIE told her about visitation at [place]. JAMIE will call her when JAMIE has a turkey picker time. She thanked JAMIE for the update. Kaur Jamison NEURO INTENSIVIST PHYSICIAN [place]
--- NOTE | 2021-03-21 09:56 | TREXTCAR_ITS ---
Diet 03/17/21 14:15 Diet: 2000 tushar ADA Food consistency:: Regular Liquid Consistency:: Regular/Thin Type of Dietary Supplement:: Glucerna Shake Is pt able to select menu?: Yes Diet Comments: 4oz w/ meals Routine Orders/Code Status Routine Lab Work: - (Fingerstick blood sugars before meals and nightly x1 week, Humalog subcu per result: 200-250-5 u, 251-300-8 units subcu, 301-350-12 units subcu) Code Status: [facility] Wound(s) Right lateral leg: Wound Type: Stasis Ulcer Therapies Weight Bearing: Full weight bearing Problem/Diagnosis (1) Second degree atrioventricular block, Mobitz (type) I: Status: Acute Comment: Avoid rate limiting medications (2) Acute alteration in mental status: Status: Acute Comment: [place] to be secondary to COVID (3) Cardiac standstill: Status: Acute Comment: She had a 5-second period of cardiac standstill, he was asymptomatic, patient did not wish anything to be done such as diagnostic testing or pacemaker (4) COVID-19: Status: Acute Comment: Patient was not treated due to the fact that he was not hypoxic (5) Generalized muscle weakness: Status: Acute (6) Diabetes mellitus, type II: Status: Chronic Comment: When patient was seen in the emergency room, he was hypoglycemic, he was on Amaryl, Actos, and basal insulin at home, these were discontinued on admission to the hospital and patient was covered with sliding scale insulin only. (7) CKD (chronic kidney disease), stage III: Status: Chronic Comment: Stage III a (8) Acontractile bladder: Status: Chronic Comment: Patient does self-catheterization 3 times a day (9) HTN (hypertension): Status: Chronic (10) HLD (hyperlipidemia): Status: Chronic Allergies/Procedures Done in Hospital Allergies No Known Allergies Allergy (Verified 03/15/21 11:00) Procedures: None Type of Care/Length of Stay Estimated LOS: Convalescent Care Less Than 30 days Type of Care Needed: Skilled Rehab Potential: Good Prognosis: Good Additional Orders/Day of Discharge Additional Orders: Quarantine due to COVID 19 for 4 days, patient does straight catheterization 3 times a day H&P will serve as current which was dated: 03/15/21 Day of Discharge: 03/21/21 Dietary and Speech Recommendations Dietitian Recommendations/Changes: Will adjust ONS and provide 120mL Glucerna TID w/ meals Discharge Plan Admission Admit Date/Time: 03/17/21 14:15 Primary Reason for Your Visit: Debility due to COVID-19, hypoglycemia Attending Provider: Henri Thurman Primary Care Provider: Cameron Perez [facility] Consulting Providers: Shan Bowden Discharge Orders/Prescriptions Prescriptions: New lisinopril 10 mg Tablet 10 mg PO DAILY Qty: 0 RF: 0 Continued atorvastatin 40 MG tablet 40 mg PO QHS RF: 0 levothyroxine 75 MCG tablet 75 mcg PO DAILY RF: 0 lisinopril 10 MG tablet 10 mg PO DAILY RF: 0 Discontinued glimepiride 4 mg tablet 4 mg PO BID RF: 0 pioglitazone 30 mg tablet 30 mg PO DAILY RF: 0 Toujavier SoloStar U-300 Insulin 300 unit/mL (1.5 mL) insulin pen 20 unit SUBCUT QHS RF: 0 Referrals / Follow Up: Cameron Perez Chi, MD [Primary Care Provider] - Disposition Disposition (needs filled in before D/C Order can be placed): Group Home Facility
[2021-03-21] MEDS: Enoxaparin 40 MG/0.4 ML Syringe SC (10:00)
[2021-03-21] MEDS: Lisinopril 10 MG Tablet PO (10:00)
[2021-03-21 10:11] LABS: Bedside Glucose 209 mg/dL (70-110)
--- NOTE | 2021-03-21 10:45 | PHA.DC.MR ---
Pharmacy Service has performed discharge medication reconciliation for this patient. The patient's discharge medication list was reviewed for discrepancies and discrepancies were resolved. Home Medications atorvastatin 40 mg PO QHS 03/10/19 levothyroxine 75 mcg PO DAILY 03/10/19 lisinopril 10 mg PO DAILY #0 tab 03/21/21
--- NOTE | 2021-03-21 10:47 | CASEMGMT ---
JAMIE received a call from Kristal at [facility]. She asked if patient's transport could be set up for 5p due to staffing and discharges. JAMIE that should not be a problem. JAMIE arranged for patient to get picked up at 5p via [employer] van. JAMIE faxed orders and pickling solution maker time to [facility]. JAMIE notified RN, furnace charger, and racing secretary and handicapper. JAMIE also called patient's daughter Amirah and let her know this information. JAMIE also notified Amirah that patient is going by wheelchair van and this is not covered by insurance. JAMIE explained patient would get a bill. She verbalized understanding. Plan: d/c to [facility] under skilled level of care. [facility] transported via [facility] van. Kaur SAMS
--- NOTE | 2021-03-21 11:39 | DS.PCM_ITS ---
Providers Date of Admission: 03/17/21 Date of Discharge: 03/21/21 Primary Care Physician: Dr. Cameron Perez MD Consultations 03/17/21 03:03 Consult: Cardiology Routine Consulting Provider: Shan Bowden Reason for Consult: AV block EMERGENT Consult: No MD Notified: Yes Date Notified: 03/17/21 Time Notified: 06:44 Method of Notification: Text Reason For Visit: AMS Diagnosis Discharge Diagnosis (1) Second degree atrioventricular block, Mobitz (type) I: Status: Acute Code(s): I44.1 - Atrioventricular block, second degree (2) Acute alteration in mental status: Status: Acute Code(s): R41.82 - Altered mental status, unspecified (3) Cardiac standstill: Status: Acute Code(s): I46.9 - Cardiac arrest, cause unspecified (4) COVID-19: Status: Acute Code(s): U07.1 - COVID-19 (5) Generalized muscle weakness: Status: Acute Code(s): M62.81 - Muscle weakness (generalized) (6) Diabetes mellitus, type II: Status: Chronic Code(s): E11.9 - Type 2 diabetes mellitus without complications Qualifiers: Diabetes mellitus complication status: with other specified complication Diabetes mellitus superintendent container terminal insulin use: without superintendent container terminal use Qualified Code (s): E11.69 - Type 2 diabetes mellitus with other specified complication (7) CKD (chronic kidney disease), stage III: Status: Chronic Code(s): N18.3 - Chronic kidney disease, stage 3 (moderate) (8) Acontractile bladder: Status: Chronic Code(s): N31.9 - Neuromuscular dysfunction of bladder, unspecified (9) HTN (hypertension): Status: Chronic Code(s): I10 - Essential (primary) hypertension Qualifiers: Hypertension type: unspecified Qualified Code(s): I10 - Essential (primary) hypertension (10) HLD (hyperlipidemia): Status: Chronic Code(s): E78.5 - Hyperlipidemia, unspecified Qualifiers: Hyperlipidemia type: unspecified Qualified Code(s): E78.5 - Hyperlipidemia, unspecified Plan: 1. Encephalopathy secondary to hypoglycemia on a backdrop of generalized debility secondary to COVID infection #2 generalized debility secondary to COVID-19 infection #3 type 2 diabetes- #4 secondary A-V block type I along with episodes of sinus rhythm with first- degree AV block 5. COVID-19 infection without pneumonia #6 Cardiac standstill #7 Acontractile bladder #8 chronic kidney disease stage IIIa Medications at Discharge Home Medications atorvastatin 40 mg PO QHS 03/10/19 levothyroxine 75 mcg PO DAILY 03/10/19 lisinopril 10 mg PO DAILY #0 tab 03/21/21 Hospital Course Operations None Procedures None Summary of Care Provided Minutes Spent on Discharge: 33 Hospital Course: This 85-year-old white male was seen in the emergency room at [facility] with an altered mental status concerning for stroke, EMS noted however that the patient had a low blood sugar of 51-patient is a known diabetic. EMS gave the patient glucose 12.5 g IV and his mentation and slurred speech improved significantly. Work-up in the emergency room revealed the patient to be at his baseline mental status, he was positive for COVID-19, patient was not hypoxic, CBC was unremarkable, chemistry panel was remarkable for creatinine of 1.7 and BUN of 30. Patient's glucose was noted to be 133 on his chemistry panel. Patient was admitted to PCU, he did not require treatment for COVID-19 due to the fact he was not hypoxic. PT and OT saw the patient, it was recommended the patient go to an extended care facility for short-term rehab services. Patient was noted on telemetry to have a Mobitz second-degree AV block, he was seen in consultation by cardiology who recommended not placing the patient on any rate limiting medication. In addition, patient had a 5-second interval of cardiac standstill, I discussed his care with his POA who stated that the patient would not want any testing done, patient was supposed to be a DNR CC arrest and he would not want any pacemaker. Patient did not have any more episodes of cardiac standstill during his hospital stay. On 03/21/2021, patient was seen and examined: On examination he appeared in good health and spirits. Vital signs as documented. Skin warm and dry and without overt rashes. Neck without JVD, neck was supple, trachea midline, thyroid was normal. Lungs clear bilaterally, normal air movement was noted. Heart exam notable for regular rhythm, normal sounds and absence of murmurs, rubs or gallops. Abdomen unremarkable and without evidence of organomegaly, masses, or abdominal aortic enlargement. Bowel sounds are present, abdomen is not distended. Extremities nonedematous, no cyanosis was noted, no clubbing was noted. Neuro: Cranial nerves II through XII are grossly intact, no focal motor deficits were noted, sensation to light touch and pinprick intact, motor exam 5/5 throughout. Psych: Patient is alert and oriented x3, he does not appear anxious or depressed, he does not appear agitated. On 03/21/2021, patient was transferred to an extended care facility for short- term inpatient rehab services. Weight / BMI Weight Weight: 108 kg Body Mass Index (BMI) 33.3 ABG / Lab / Microbiology Data Result Diagrams: 03/18/21 07:17 03/19/21 05:45 Laboratory: Laboratory Results - last 24 hr 03/20/21 12:02: POC Glucose 266 H 03/20/21 17:08: POC Glucose 202 H 03/20/21 19:57: POC Glucose 260 H 03/21/21 06:32: POC Glucose 162 H 03/21/21 09:59: POC Glucose 209 H Microbiology: Microbiology 03/15/21 11:10 Nasal Secretion SARS-CoV-2 Antigen (Rapid) - Final SARS-CoV-2 (COVID 19) Meaningful Use Info Meaningful Use Diagnoses (Choose all that apply): None applicable Discharge Plan Admission Admit Date/Time: 03/17/21 14:15 Primary Reason for Your Visit: Debility due to COVID-19, hypoglycemia Attending Provider: Henri Thurman Primary Care Provider: Cameron Perez Chi Consulting Providers: Shan Bowden Discharge Orders/Prescriptions Prescriptions: New lisinopril 10 mg Tablet 10 mg PO DAILY Qty: 0 RF: 0 Continued atorvastatin 40 MG tablet 40 mg PO QHS RF: 0 levothyroxine 75 MCG tablet 75 mcg PO DAILY RF: 0 Discontinued lisinopril 10 MG tablet 10 mg PO DAILY RF: 0 glimepiride 4 mg tablet 4 mg PO BID RF: 0 pioglitazone 30 mg tablet 30 mg PO DAILY RF: 0 Toujeo SoloStar U-300 Insulin 300 unit/mL (1.5 mL) insulin pen 20 unit SUBCUT QHS RF: 0 Referrals / Follow Up: Cameron Perez Chi, MD [Primary Care Provider] - Disposition Disposition (needs filled in before D/C Order can be placed): Group Home Facility Charges/Coding Visit Charges Inpatient E&M: 62542 Disch Hosp
[2021-03-21] MEDS: Acetaminophen 325 MG Tablet 650 MG PO (16:43)
[2021-03-21 16:56] LABS: Bedside Glucose 191 mg/dL (70-110)
== END 2021-03-21 17:09 | DRG 177 ==
LOC: ED 13:13 → PCU 15:15
PROVIDERS: Hospitalist; Admitting Provider Family Medicine; Emergency Provider Emergency Medicine; PCP Family Medicine Geriatric Medicine; Visit Provider Internal Medicine
DX: U07.1 COVID-19 (principal); I46.9 Cardiac arrest, cause unspecified; G93.40 Encephalopathy, unspecified; L97.909 Non-pressure chronic ulcer of unspecified part of unspecified lower leg with unspecified severity; E11.649 Type 2 diabetes mellitus with hypoglycemia without coma; I83.009 Varicose veins of unspecified lower extremity with ulcer of unspecified site; I44.1 Atrioventricular block, second degree; E11.22 Type 2 diabetes mellitus with diabetic chronic kidney disease; Z79.4 Long term (current) use of insulin; E11.59 Type 2 diabetes mellitus with other circulatory complications; I48.91 Unspecified atrial fibrillation; N18.31 Chronic kidney disease, stage 3a; E78.5 Hyperlipidemia, unspecified; I12.9 Hypertensive chronic kidney disease with stage 1 through stage 4 chronic kidney disease, or unspecified chronic kidney disease; M16.10 Unilateral primary osteoarthritis, unspecified hip; E03.9 Hypothyroidism, unspecified; I87.2 Venous insufficiency (chronic) (peripheral); E78.00 Pure hypercholesterolemia, unspecified; Z79.84 Long term (current) use of oral hypoglycemic drugs; Z66 Do not resuscitate; M62.81 Muscle weakness (generalized); N31.9 Neuromuscular dysfunction of bladder, unspecified
CPT/HCPCS: 36415; 70450; 71045; 80048; 82962; 83735; 84100; 84484; 85025; 85610; 85730; 87426; 93005; 93306; 97110; 97162; 97166; 97530; 97535; 97802; 99285; J7030; Q9957

== ENCOUNTER 2021-04-19 16:11 | Outpatient (CLI) | payer MEDICARE, SELFPAY ==
--- NOTE | 2021-04-19 16:35 | RAD_ITS ---
STUDY: X-RAY CHEST REASON FOR EXAM: Male, 85 years old. Other specified symptoms of circulation and respiration. Patient states he has no chest complaints. TECHNIQUE: PA and lateral views of the chest. COMPARISON: 03/15/2021 FINDINGS: Mildly improved inspiratory effort when compared to prior study. There is no new infiltrate or mass. There is no demonstrated pleural abnormality. Normal size heart. Normal mediastinum and james. Normal visualized pulmonary arteries. Normal visualized aortic arch and descending thoracic aorta. There are diffuse degenerative changes of the visualized thoracic spine. There is degenerative osteoarthritis of the bilateral shoulders. There is no demonstrated abnormality of the visualized soft tissue structures of the upper abdomen. RAD/Chest PA and Lateral IMPRESSION: Degenerative changes, as described above. No demonstrated acute cardiopulmonary process. Electronically Signed: Reese Canseco DO at 16:48 EST ,
[2021-04-19 17:47] LABS: Anion Gap 6 (5-15); BUN 36 mg/dL (7-18); BUN/Creat Ratio 19.3 RATIO (10-20); Calcium,Total 8.8 mg/dL (8.5-10.1); Chloride 101 mmol/L (98-107); Creatinine, Serum 1.87 mg/dL (0.70-1.30); EST Glomerular Filtration Rate 37 mL/min (>60); Est Glom Filt Rate - Afr Amer 44 mL/min (>60); Glucose 371 mg/dL (74-106); Potassium 4.8 mmol/L (3.5-5.1); Sodium Level 133 mmol/L (136-145)
[2021-04-19 17:54] LABS: BNP,B-Type NATRIURETIC PEPTIDE 116.2 pg/mL (0-100)
[2021-04-19 18:07] LABS: Absolute Lymphocyte Count 0.89 X10^3/uL (0.83-4.51); Absolute Neutrophil Count 4.8 X10^3/uL (2.0-7.7); Basophil# 0.01 X10^3/uL; Basophil% 0.2 % (0-1); Eosinophil# 0.13 X10^3/uL; Hematocrit 33.9 % (40-54); Hemoglobin 11.4 g/dL (13.0-16.5); Lymphocyte # 0.89 X10^3/ul (0.83-4.51); Mean Corp Hgb Conc 33.6 g/dL (32-36); Mean Corpuscular Hgb 31.7 pg (27.0-32.0); Mean Corpuscular Volume 94.2 fL (80-94); Mean Platelet Vol. 12.5 fl (6.2-12.0); Monocyte% 7.9 % (0-10); NRBC Flagged by Analyzer 0 % (0-5); Neutrophil # 4.81 X10^3/uL (2.7-7.7); Neutrophil % 75.6 % (47-70); Platelet Count 190 K/mm3 (150-450); RBC Distribution Width CV 13.4 % (11.6-14.6); RBC Distribution Width SD 46.7 fl (35.1-43.9); White Blood Count 6.4 K/mm3 (4.4-11.0)
== END 2021-04-19 23:59 | disposition home or self-care (01) ==
LOC: POLAB3 16:11 → RAD 16:25
PROVIDERS: PCP Family Medicine Geriatric Medicine; Visit Provider Family Medicine Geriatric Medicine
DX: I50.9 Heart failure, unspecified (principal); R09.89 Other specified symptoms and signs involving the circulatory and respiratory systems
CPT/HCPCS: 36415; 71046; 80048; 83880; 85025

== ENCOUNTER → 2021-08-17 | Outpatient (CLI) | payer MEDICARE, SELFPAY ==
[2021-08-17 12:13] LABS: Absolute Lymphocyte Count 1.19 X10^3/uL (0.83-4.51); Absolute Neutrophil Count 3.8 X10^3/uL (2.0-7.7); Basophil# 0.02 X10^3/uL; Basophil% 0.3 % (0-1); Eosinophil# 0.18 X10^3/uL; Eosinophils% 3.1 % (0-5); Hematocrit 37.3 % (40-54); Hemoglobin 12.3 g/dL (13.0-16.5); Lymphocyte # 1.19 X10^3/ul (0.83-4.51); Lymphocyte % 20.7 % (19-41); Mean Corpuscular Hgb 31.1 pg (27.0-32.0); Mean Corpuscular Volume 94.2 fL (80-94); Mean Platelet Vol. 11.9 fl (6.2-12.0); Monocyte# 0.57 X10^3/uL; Monocyte% 9.9 % (0-10); NRBC Flagged by Analyzer 0 % (0-5); Neutrophil # 3.78 X10^3/uL (2.7-7.7); Neutrophil % 65.8 % (47-70); Platelet Count 186 K/mm3 (150-450); RBC Distribution Width CV 12.8 % (11.6-14.6); RBC Distribution Width SD 44.2 fl (35.1-43.9); Red Blood Count 3.96 M/mm3 (4.6-6.2); White Blood Count 5.8 K/mm3 (4.4-11.0)
[2021-08-17 12:34] LABS: Vitamin D,25 Hydroxy 41.6 ng/mL
[2021-08-17 12:49] LABS: ALB/GLOB Ratio 1.1 RATIO (0.9-2.4); AST(SGOT) 15 U/L (15-37); Alanine Aminotransfer ALT/SGPT 21 U/L (16-61); Albumin, Serum 3.7 g/dL (3.2-5.0); Alkaline Phosphatase 90 U/L (45-117); Anion Gap 6 (5-15); BUN 36 mg/dL (7-18); BUN/Creat Ratio 19.5 RATIO (10-20); Calcium,Total 9.4 mg/dL (8.5-10.1); Chloride 104 mmol/L (98-107); Creatinine, Serum 1.85 mg/dL (0.70-1.30); EST Glomerular Filtration Rate 37 mL/min (>60); Est Glom Filt Rate - Afr Amer 45 mL/min (>60); Globulin 3.4 g/dL (2.2-4.2); Glucose 257 mg/dL (74-106); Potassium 4.8 mmol/L (3.5-5.1); Protein, Total 7.1 g/dL (6.4-8.2); Sodium Level 135 mmol/L (136-145); Thyroid Stim Hormone (TSH) 2.89 uIU/mL (0.358-3.74)
== END | disposition home or self-care (01) ==
LOC: POLAB3 11:37
PROVIDERS: PCP Family Medicine Geriatric Medicine; Visit Provider Family Medicine Geriatric Medicine
DX: E11.9 Type 2 diabetes mellitus without complications (principal); E23.6 Other disorders of pituitary gland; E55.9 Vitamin D deficiency, unspecified; I10 Essential (primary) hypertension
CPT/HCPCS: 36415; 80053; 82306; 84403; 84443; 85025

== ENCOUNTER → 2021-11-15 | Outpatient (CLI) | payer MEDICARE, SELFPAY ==
[2021-11-15 16:27] LABS: Absolute Lymphocyte Count 0.92 X10^3/uL (0.83-4.51); Absolute Neutrophil Count 4.7 X10^3/uL (2.0-7.7); Basophil# 0.02 X10^3/uL; Basophil% 0.3 % (0-1); Eosinophil# 0.18 X10^3/uL; Eosinophils% 2.8 % (0-5); Hematocrit 34.6 % (40-54); Hemoglobin 11.7 g/dL (13.0-16.5); Lymphocyte # 0.92 X10^3/ul (0.83-4.51); Lymphocyte % 14.3 % (19-41); Mean Corp Hgb Conc 33.8 g/dL (32-36); Mean Corpuscular Hgb 31.8 pg (27.0-32.0); Mean Platelet Vol. 12.2 fl (6.2-12.0); Monocyte# 0.58 X10^3/uL; NRBC Flagged by Analyzer 0 % (0-5); Neutrophil # 4.71 X10^3/uL (2.7-7.7); Neutrophil % 73.3 % (47-70); Platelet Count 168 K/mm3 (150-450); RBC Distribution Width CV 12.7 % (11.6-14.6); RBC Distribution Width SD 43.8 fl (35.1-43.9); Red Blood Count 3.68 M/mm3 (4.6-6.2); White Blood Count 6.4 K/mm3 (4.4-11.0)
[2021-11-15 16:42] LABS: ALB/GLOB Ratio 1.1 RATIO (0.9-2.4); AST(SGOT) 14 U/L (15-37); Alanine Aminotransfer ALT/SGPT 21 U/L (16-61); Albumin, Serum 3.5 g/dL (3.2-5.0); Alkaline Phosphatase 73 U/L (45-117); Anion Gap 8 (5-15); BUN 35 mg/dL (7-18); Calcium,Total 9.2 mg/dL (8.5-10.1); Chloride 107 mmol/L (98-107); Creatinine, Serum 1.59 mg/dL (0.70-1.30); EST Glomerular Filtration Rate 44 mL/min (>60); Est Glom Filt Rate - Afr Amer 53 mL/min (>60); Globulin 3.2 g/dL (2.2-4.2); Glucose 94 mg/dL (74-106); Potassium 4.5 mmol/L (3.5-5.1); Protein, Total 6.7 g/dL (6.4-8.2); Sodium Level 138 mmol/L (136-145); Thyroid Stim Hormone (TSH) 2.86 uIU/mL (0.358-3.74)
== END | disposition home or self-care (01) ==
LOC: POLAB3 13:51
PROVIDERS: PCP Family Medicine Geriatric Medicine; Visit Provider Family Medicine Geriatric Medicine
DX: I10 Essential (primary) hypertension (principal); E23.6 Other disorders of pituitary gland; E11.9 Type 2 diabetes mellitus without complications; E55.9 Vitamin D deficiency, unspecified
CPT/HCPCS: 36415; 80053; 82306; 84403; 84443; 85025

== ENCOUNTER → 2022-02-13 | Outpatient (CLI) | payer MEDICARE, SELFPAY ==
[2022-02-13 17:06] LABS: Absolute Lymphocyte Count 0.94 X10^3/uL (0.83-4.51); Basophil# 0.02 X10^3/uL; Basophil% 0.3 % (0-1); Eosinophil# 0.14 X10^3/uL; Eosinophils% 2.1 % (0-5); Hematocrit 36.2 % (40-54); Hemoglobin 12.1 g/dL (13.0-16.5); Lymphocyte # 0.94 X10^3/ul (0.83-4.51); Lymphocyte % 14.2 % (19-41); Mean Corp Hgb Conc 33.4 g/dL (32-36); Mean Corpuscular Hgb 31.6 pg (27.0-32.0); Mean Corpuscular Volume 94.5 fL (80-94); Mean Platelet Vol. 11.7 fl (6.2-12.0); Monocyte# 0.56 X10^3/uL; Monocyte% 8.4 % (0-10); NRBC Flagged by Analyzer 0 % (0-5); Neutrophil # 4.95 X10^3/uL (2.7-7.7); Neutrophil % 74.7 % (47-70); Platelet Count 173 K/mm3 (150-450); RBC Distribution Width CV 13.3 % (11.6-14.6); RBC Distribution Width SD 45.7 fl (35.1-43.9); Red Blood Count 3.83 M/mm3 (4.6-6.2); White Blood Count 6.6 K/mm3 (4.4-11.0)
[2022-02-13 17:46] LABS: Vitamin D,25 Hydroxy 42.6 ng/mL
[2022-02-13 18:30] LABS: ALB/GLOB Ratio 1.1 RATIO (0.9-2.4); AST(SGOT) 17 U/L (15-37); Alanine Aminotransfer ALT/SGPT 19 U/L (16-61); Albumin, Serum 3.8 g/dL (3.2-5.0); Alkaline Phosphatase 75 U/L (45-117); Anion Gap 4 (5-15); BUN 31 mg/dL (7-18); BUN/Creat Ratio 19.4 RATIO (10-20); Calcium,Total 9.3 mg/dL (8.5-10.1); Chloride 107 mmol/L (98-107); EST Glomerular Filtration Rate 44 mL/min (>60); Est Glom Filt Rate - Afr Amer 53 mL/min (>60); Globulin 3.4 g/dL (2.2-4.2); Glucose 87 mg/dL (74-106); Potassium 4.6 mmol/L (3.5-5.1); Protein, Total 7.2 g/dL (6.4-8.2); Sodium Level 138 mmol/L (136-145)
== END | disposition home or self-care (01) ==
LOC: POLAB3 14:06
PROVIDERS: PCP Family Medicine Geriatric Medicine; Visit Provider Family Medicine Geriatric Medicine
DX: R53.83 Other fatigue (principal); E11.65 Type 2 diabetes mellitus with hyperglycemia; E23.6 Other disorders of pituitary gland; E55.9 Vitamin D deficiency, unspecified; I10 Essential (primary) hypertension
CPT/HCPCS: 36415; 80053; 82306; 84403; 84443; 85025

== ENCOUNTER → 2022-08-21 | Outpatient (CLI) | payer MEDICARE, SELFPAY ==
[2022-08-21 16:14] LABS: Absolute Lymphocyte Count 1.02 X10^3/uL (0.83-4.51); Absolute Neutrophil Count 4.5 X10^3/uL (2.0-7.7); Basophil# 0.02 X10^3/uL; Basophil% 0.3 % (0-1); Eosinophil# 0.11 X10^3/uL; Eosinophils% 1.8 % (0-5); Hematocrit 36.7 % (40-54); Hemoglobin 12.2 g/dL (13.0-16.5); Lymphocyte # 1.02 X10^3/ul (0.83-4.51); Lymphocyte % 16.4 % (19-41); Mean Corp Hgb Conc 33.2 g/dL (32-36); Mean Corpuscular Hgb 31.9 pg (27.0-32.0); Mean Corpuscular Volume 96.1 fL (80-94); Mean Platelet Vol. 11.4 fl (6.2-12.0); Monocyte# 0.54 X10^3/uL; Monocyte% 8.7 % (0-10); NRBC Flagged by Analyzer 0 % (0-5); Neutrophil # 4.51 X10^3/uL (2.7-7.7); Neutrophil % 72.3 % (47-70); Platelet Count 187 K/mm3 (150-450); RBC Distribution Width CV 13.4 % (11.6-14.6); RBC Distribution Width SD 47.1 fl (35.1-43.9); Red Blood Count 3.82 M/mm3 (4.6-6.2); White Blood Count 6.2 K/mm3 (4.4-11.0)
[2022-08-21 16:39] LABS: Vitamin D,25 Hydroxy 43.9 ng/mL
[2022-08-21 16:46] LABS: ALB/GLOB Ratio 1.1 RATIO (0.9-2.4); AST(SGOT) 20 U/L (15-37); Alanine Aminotransfer ALT/SGPT 21 U/L (16-61); Albumin, Serum 3.9 g/dL (3.2-5.0); Alkaline Phosphatase 83 U/L (45-117); Anion Gap 5 (5-15); BUN 30 mg/dL (7-18); BUN/Creat Ratio 18.4 RATIO (10-20); Calcium,Total 9.2 mg/dL (8.5-10.1); Chloride 105 mmol/L (98-107); Creatinine, Serum 1.63 mg/dL (0.70-1.30); EST Glomerular Filtration Rate 43 mL/min (>60); Est Glom Filt Rate - Afr Amer 52 mL/min (>60); Globulin 3.7 g/dL (2.2-4.2); Glucose 101 mg/dL (74-106); Protein, Total 7.6 g/dL (6.4-8.2); Sodium Level 135 mmol/L (136-145); Thyroid Stim Hormone (TSH) 3.05 uIU/mL (0.358-3.74)
== END | disposition home or self-care (01) ==
LOC: LAB 15:25
PROVIDERS: PCP Family Medicine Geriatric Medicine; Referring Provider Family Medicine Geriatric Medicine; Visit Provider Family Medicine Geriatric Medicine
DX: I10 Essential (primary) hypertension (principal); E11.65 Type 2 diabetes mellitus with hyperglycemia; E55.9 Vitamin D deficiency, unspecified
CPT/HCPCS: 36415; 80053; 82306; 84443; 85025